=== PATIENT | female | born 1960 | race Caucasian/White ===

== ENCOUNTER 2017-01-05 07:30 | Day surgery (SDC) | payer OTHER ==
--- NOTE | 2017-01-02 13:30 | HISTORY AND PHYSICAL E ---
History and Physical NAME: ZBIGNIEW TRUJILLO : 1960 AGE: 56Y ADMITTED: 01/05/2017 ROOM: REFERRING: [facility], Internal Medicine. HISTORY OF PRESENT ILLNESS: A 55-year-old female presents with abdominal pain. Admitted regarding colonoscopy. SOCIAL HISTORY: . Does not smoke. Drinks rarely. PAST SURGICAL HISTORY: 1. Cholecystectomy. 2. Back surgery. 3. Hysterectomy. 4. Tonsillectomy. 5. Appendectomy. 6. Patient did have ERCP at [facility]. 7. Colonoscopy x3, 2009 diverticulosis. 8. . REVIEW OF SYSTEMS: CARDIAC: Hypertension. ENDOCRINE: Hypothyroid. Diabetes. GASTROINTESTINAL: Abdominal pain. Diverticulosis. Fatty liver. MUSCULOSKELETAL: Back fusion. FAMILY HISTORY: Father had cardiac and kidney disease. Mom is alive. PHYSICAL EXAMINATION: VITAL SIGNS: Blood pressure is 130/70, pulse 80, respirations 20, temp is 98. HEAD, EYES, EARS, NOSE, THROAT: Normal. NECK: Supple. LUNGS: Clear. ABDOMEN: Soft. NEUROLOGIC: Negative. MEDICATIONS: 1. Crestor. 2. Nexium. 3. Synthroid. 4. Tramadol. 5. Voltaren gel. IMAGING: Patient did have abdominal CT. It shows liver is normal. The patient does have possible focal fatty scarring. Splenic mesenteric veins are patent. The patient did have impression, nodular consolidation in the peribronchial area. The patient did have nonobstructing renal calculi. She has colonic diverticulosis without diverticulitis. She did have enlarged mesenteric lymph nodes. The patient may have sequela from previous inflammation. Recommend correlate colon screening. Enlarged mesenteric lymph node adjacent to the hepatic flexure in transverse colon which may represent sequela of infection or inflammation. CONCLUSION: 1. Colon screening. 2. Abnormal CT. 3. Diverticulosis. 4. Diabetes. PLAN: Colon exam. DICTATING PHYSICIAN: JAILENE PEGUERO M.D. [id number] PHY#: [id number] ID: [id number] JOB#: [id number] ACCT: [id number] cc:[facility] JAILENE PEGUERO M.D. >
[2017-01-05] MEDS ORDERED: NALOXONE HCL INJ/PF 0.4 MG/1 ML SDV ONE (07:44)
[2017-01-05] MEDS ORDERED: ONDANSETRON HCL INJ/PF 4 MG/2 ML SDV ONE (07:44)
[2017-01-05] MEDS ORDERED: LIDOCAINE 2% JELLY 30 ML TUBE ONE (07:44)
[2017-01-05] MEDS ORDERED: GLYCOPYRROLATE INJ 0.4 MG/2 ML VIAL ONE (07:44)
[2017-01-05] MEDS ORDERED: FLUMAZENIL INJ 0.5 MG/5 ML VIAL IV ONE (07:45)
[2017-01-05] MEDS ORDERED: EPINEPHRINE INJ 1 MG/10 ML DISP.SYRIN ONE (07:45)
[2017-01-05] MEDS ORDERED: GLUCAGON,HUMAN RECOMB 1 MG INJ ONE (07:46)
[2017-01-05] MEDS: MIDAZOLAM 2 MG/2 ML INJ ONE ×3 (08:03→08:11)
[2017-01-05] MEDS: FENTANYL CITRATE INJ/PF 100 MCG/2 ML AMPUL ONE ×2 (08:05→08:13)
[2017-01-05 09:21] VITALS: BP 115/69
[2017-01-05 09:25] LABS: ABSOLUTE BASOPHILS # (AUTO) 0.1 10^3/uL (0.0-0.2); ABSOLUTE EOSINOPHILS # (AUTO) 1.1 10^3/uL (0.0-0.6); ABSOLUTE LYMPHOCYTES (AUTO) 1.6 10^3/uL (0.5-4.7); ABSOLUTE MONOCYTES (AUTO) 0.4 10^3/uL (0.1-1.4); ABSOLUTE NEUT (AUTO) 2.5 10^3/uL (1.7-8.2); BASOPHILS % (AUTO) 1.2 % (0-2); EOSINOPHILS % (AUTO) 18.8 % (0-6); HEMATOCRIT 34.5 % (36.0-47.0); HEMOGLOBIN 11.2 g/dL (12.0-15.5); HGB HCT DIFFERENCE -0.9; MEAN CORPUSCULAR HGB CONC 32.5 g/dL (32.0-36.0); MEAN CORPUSCULAR VOLUME 77 fl (80-97); MONOCYTES % (AUTO) 6.6 % (3-13); RED BLOOD COUNT 4.49 10^6/uL (3.72-5.28); RED CELL DISTRIBUTION WIDTH 17.1 % (11.5-14.0); SEGMENTED NEUTROPHILS % (AUTO) 44.4 % (42-78); WHITE BLOOD COUNT 5.7 10^3/uL (4.0-10.5)
--- NOTE | 2017-01-05 09:50 | DISCHARGE SUMMARY E ---
Discharge Summary NAME: ZBIGNIEW TRUJILLO : 1960 AGE: 56Y ADMITTED: 01/05/2017 DISCHARGED: 01/05/2017 FINAL DIAGNOSIS: Abnormal CT. No evidence of malignancy. Patient did have multiple colonoscopies in the past showing diverticulosis, , hysterectomy, and cholecystectomy. Colon shows no malignancy. No definite polyps. DISCHARGE PLAN: 1. Soft diabetic diet. 2. Consider upper endoscopy. 3. Awaiting lab studies. 4. Resume all medications. 5. Avoid driving today. 6. Continue lisinopril, colchicine, Crestor, and Synthroid. 7. Followup office visit in the next few days. DICTATING PHYSICIAN: JAILENE PEGUERO M.D. [id number] PHY#: [id number] ID: [id number] JOB#: [id number] ACCT: [id number] cc:[facility] JAILENE PEGUERO M.D. >
--- NOTE | 2017-01-05 09:51 | OPERATIVE REPORT E ---
Operative Report NAME: ZBIGNIEW TRUJILLO : 1960 AGE: 56Y DATE OF SURGERY: 01/05/2017 ROOM: PREOPERATIVE DIAGNOSIS: ABNORMAL CT; QUESTION DIVERTICULITIS. QUESTION COLORECTAL LESIONS. POSTOPERATIVE DIAGNOSES: 1. EXTERNAL HEMORRHOIDS. 2. QUESTION 2 MM ANAL POLYP VERSUS SKIN TAG VERSUS HEMORRHOID. OPERATION: Colonoscopy. SURGEON: JAILENE PEGUERO M.D. TISSUE REMOVED OR ALTERED: None. FINDINGS: Mild external hemorrhoids. Question anal polyp versus external hemorrhoid. PROCEDURE DESCRIPTION: RECTAL EXAM: External hemorrhoids - question anal verge skin tag. Question size anal polyp. SIGMOID DESCENDING COLON: Normal. TRANSVERSE COLON: Normal. ASCENDING: Normal. CECUM: Normal. Scope withdrawn - cecum all the way to the rectum. CONCLUSION: 1. EXTERNAL HEMORRHOIDS. 2. ANAL POLYP. PLAN: 1. Soft diet. 2. Lab studies. 3. Consideration: Followup colonoscopy after 5 years. DICTATING PHYSICIAN: JAILENE PEGUERO M.D. [id number] PHY#: [id number] ID: [id number] JOB#: [id number] ACCT: [id number] cc:JAILENE PEGUERO M.D. >
[2017-01-05 10:01] LABS: ALANINE AMINOTRANSFERASE 126 U/L (9-52); ALBUMIN 3.8 g/dL (3.5-5.0); ALKALINE PHOSPHATASE 83 U/L (38-126); ANION GAP 12 (5-19); ASPARTATE AMINO TRANSFERASE 174 U/L (14-36); BILIRUBIN,DIRECT 0.3 mg/dL (0.0-0.4); BILIRUBIN,TOTAL 0.5 mg/dL (0.2-1.3); BLOOD UREA NITROGEN 12 mg/dL (7-20); CALCIUM 9.9 mg/dL (8.4-10.2); CARBON DIOXIDE 25 mmol/L (22-30); CHLORIDE 103 mmol/L (98-107); CREATININE RESULT 0.74 mg/dL (0.52-1.25); GLUCOSE 317 mg/dL (75-110); POTASSIUM 3.8 mmol/L (3.6-5.0); SODIUM 140.2 mmol/L (137-145); TOTAL PROTEIN 6.3 g/dL (6.3-8.2)
[2017-01-05 10:31] LABS: CARCINOEMBRYONIC ANTIGEN 4.2 ng/mL (<3.0)
== END 2017-01-05 09:40 | disposition home or self-care (01) ==
LOC: END 07:30
PROVIDERS: ATTEND Specialist
PROC: 0DJD8ZZ Inspection of Lower Intestinal Tract, Via Natural or Artificial Opening Endoscopic (ICD-10-PCS; principal; 2017-01-05 08:00)
DX: K62.0 Anal polyp (principal); K64.4 Residual hemorrhoidal skin tags; R10.9 Unspecified abdominal pain; I10 Essential (primary) hypertension; E03.9 Hypothyroidism, unspecified; E11.9 Type 2 diabetes mellitus without complications; K76.0 Fatty (change of) liver, not elsewhere classified
CPT/HCPCS: 45378; 36415; 86301; 82962; 86304; 82378; 85025; 80053; J2250; J3010; J1610; J2405; J0171; J2310; J3490

== ENCOUNTER 2017-01-23 09:27 | Day surgery (SDC) | payer OTHER ==
--- NOTE | 2017-01-18 14:41 | HISTORY AND PHYSICAL E ---
History and Physical NAME: ZBIGNIEW TRUJILLO : 1960 AGE: 56Y ADMITTED: 01/23/2017 ROOM: REFERRING PROVIDER: [facility]. CHIEF COMPLAINT/HISTORY: Patient presented complaining of history of nausea. The patient is sick to her stomach, loose BM. She presented for upper endoscopy. Abdominal pain. History of kidney stones. Complaining of abdominal pain, right upper quadrant. She does have a history of reflux. PAST SURGICAL HISTORY: 1. She did have hysterectomy. 2. Cholecystectomy. 3. She did have ERCP at [facility]. 4. Colonoscopy. 5. Appendectomy. 6. Tonsillectomy. 7. C section. MEDICATIONS: The patient takes: 1. Tramadol. 2. Lisinopril. 3. Crestor. SOCIAL HISTORY: She does not smoke. She drinks rarely. FAMILY HISTORY: Father of heart disease. Mom is alive, gallbladder disease. REVIEW OF SYSTEMS: CARDIAC: Hypertension, high cholesterol. ENDOCRINE: Diabetes, hypothyroid, hypertriglyceridemia. GASTROINTESTINAL: Abdominal pain, right upper quadrant. Fatty liver. PHYSICAL EXAMINATION: VITAL SIGNS: Blood pressure is 130/70, pulse 80, respirations 20, temp is 98. Weight 208. HEAD, EYES, EARS, NOSE, THROAT: Normal. NECK: Supple. CARDIOVASCULAR: Normal. LUNGS: Clear. ABDOMEN: Soft. NEUROLOGIC: Exam negative. CONCLUSION: 1. Reflux. 2. Abdominal pain. PLAN: Upper endoscopy. Admit 01/23. DICTATING PHYSICIAN: JAILENE PEGUERO M.D. [id number] [id number] PHY#: [id number] ID: [id number] JOB#: [id number] ACCT: [id number] cc:[facility] JAILENE PEGUERO M.D. >
[~2017-01-23 09:27] MED LIST: EPINEPHRINE INJ 1 MG/10 ML DISP.SYRIN ONE; FENTANYL CITRATE INJ/PF 100 MCG/2 ML AMPUL ONE; FLUMAZENIL INJ 0.5 MG/5 ML VIAL IV ONE; GLYCOPYRROLATE INJ 0.4 MG/2 ML VIAL ONE; NALOXONE HCL INJ/PF 0.4 MG/1 ML SDV ONE; ONDANSETRON HCL INJ/PF 4 MG/2 ML SDV ONE
[2017-01-23] MEDS: MIDAZOLAM 2 MG/2 ML INJ ONE ×3 (10:27→10:37)
[2017-01-23 11:53] VITALS: BP 137/77
[2017-01-23 12:11] LABS: HEMATOCRIT 35.6 % (36.0-47.0); HEMOGLOBIN 11.2 g/dL (12.0-15.5); MEAN CORPUSCULAR HEMOGLOBIN 24.7 pg (27.0-33.4); MEAN CORPUSCULAR HGB CONC 31.5 g/dL (32.0-36.0); MEAN CORPUSCULAR VOLUME 79 fl (80-97); RED BLOOD COUNT 4.54 10^6/uL (3.72-5.28); RED CELL DISTRIBUTION WIDTH 17.4 % (11.5-14.0); WHITE BLOOD COUNT 11.3 10^3/uL (4.0-10.5)
[2017-01-23 12:31] LABS: ALANINE AMINOTRANSFERASE 64 U/L (9-52); ALBUMIN 3.8 g/dL (3.5-5.0); ALKALINE PHOSPHATASE 92 U/L (38-126); AMYLASE 74 U/L (30-110); ANION GAP 13 (5-19); ASPARTATE AMINO TRANSFERASE 57 U/L (14-36); BILIRUBIN,DIRECT 0.3 mg/dL (0.0-0.4); BILIRUBIN,TOTAL 0.3 mg/dL (0.2-1.3); BLOOD UREA NITROGEN 18 mg/dL (7-20); C-REACTIVE PROTEIN 10.6 mg/L (<10.0); CALCIUM 10.3 mg/dL (8.4-10.2); CARBON DIOXIDE 24 mmol/L (22-30); CHLORIDE 103 mmol/L (98-107); CREATININE RESULT 0.87 mg/dL (0.52-1.25); GLUCOSE 141 mg/dL (75-110); LIPASE 173.9 U/L (23-300); POTASSIUM 4.4 mmol/L (3.6-5.0); SODIUM 140.1 mmol/L (137-145); TOTAL PROTEIN 6.3 g/dL (6.3-8.2)
--- NOTE | 2017-01-23 12:39 | DISCHARGE SUMMARY E ---
Discharge Summary NAME: ZBIGNIEW TRUJILLO : 1960 AGE: 56Y ADMITTED: 01/23/2017 DISCHARGED: 01/23/2017 01/23/2017 HISTORY: The patient is 56 and presented with abdominal pain. She has been to the ER at [facility] and was discharged over the weekend. She is doing much better. She continues to have vague nonspecific abdominal pain. Upper endoscopy today shows no evidence of ulcers and no evidence of malignancy. She did have some retained fluids consistent with early gastroparesis. She is diabetic. MEDICATIONS: 1. Bentyl. 2. Crestor. 3. Janumet. 4. Lisinopril. 5. Melatonin. 6. [place]-3. 7. Synthroid. 8. Zantac. 9. Zofran. DISCHARGE PLAN: 1. Full liquids. Advance to soft, low residue. 2. Lab studies. 3. Continue Nexium. 4. Awaiting lab results. 5. Continue present management. 6. Follow-up office visit in the next few days. PAST MEDICAL HISTORY: She does have fatty liver, hypothyroid, reflux, hysterectomy. DICTATING PHYSICIAN: JAILENE PEGUERO M.D. [id number] [id number] PHY#: [id number] ID: [id number] JOB#: [id number] ACCT: [id number] cc:[facility] JAILENE MONTEZ M.D. >
--- NOTE | 2017-01-23 12:40 | OPERATIVE REPORT E ---
Operative Report NAME: ZBIGNIEW TRUJILLO : 1960 AGE: 56Y DATE OF SURGERY: ROOM: [facility] - [facility]. PREOPERATIVE DIAGNOSES: A 56-year-old female with: 1. Abdominal pain. 2. Patient does have diabetes. 3. Allergic to gentamicin. POSTOPERATIVE DIAGNOSES: 1. Gastritis, mild. 2. Esophagitis, mild. 3. Duodenitis, mild. OPERATION: 1. Esophagoscopy. 2. Gastroscopy. 3. Duodenoscopy. FINDINGS: Patient did have some fluid retained in the stomach consistent with mild gastroparesis. No ulcers, no obstruction. Mild gastritis, prominent gastric folds. Mild duodenitis. Mild esophagitis. SURGEON: JAILENE PEGUERO M.D. ANESTHESIA: Patient was given versed 5, fentanyl 100. PROCEDURE: Baby scope passed under guided vision with no difficulties. ESOPHAGOSCOPY: Junction at 55. Mild esophagitis. GASTROSCOPY: Mild gastritis. No ulcers. DUODENOSCOPY: Mild duodenitis. CONCLUSION: 1. Esophagitis, gastritis, duodenitis. 2. No ulcers, no bleeding. 3. The patient tolerated the procedure well and discharged to her room in stable condition. 4. A 56-year-old female with abdominal pain has been to the Emergency Room over the weekend. Today she is doing much better. Upper scope shows no evidence of ulcers noted, no evidence of malignancy. She did have mild gastritis and mild esophagitis. Question early gastroparesis with some fluids, yellow fluids, retained in the stomach, about 20 mL, consistent with possibility of mild gastroparesis. There were no ulcers. No malignancy. 5. Rule out pancreatitis. Again, patient has been to the Emergency Room over the weekend, and she is doing much better. DISCHARGE PLAN: 1. Discharged on full liquid today. Soft low-fat. 2. Awaiting lab results. 3. Patient to see us in the office in the next few days. DICTATING PHYSICIAN: JAILENE PEGUERO M.D. [id number] PHY#: [id number] ID: [id number] JOB#: [id number] ACCT: [id number] cc:[facility] JAILENE PEGUERO M.D. >
[2017-01-23 13:00] LABS: BASOPHILS % (MANUAL) 0 % (0-2); EOSINOPHILS % (MANUAL) 24 % (0-6); LYMPHOCYTES % (MANUAL) 24 % (13-45); TOTAL CELLS COUNTED 100
[2017-01-23 13:05] LABS: ANISOCYTOSIS 2+; OVALOCYTES 2+; POIKILOCYTOSIS 2+; POLYCHROMASIA SLIGHT; ROULEAUX 1+
== END 2017-01-23 12:00 | disposition home or self-care (01) ==
LOC: END 09:27
PROVIDERS: ATTEND Specialist
PROC: 0DB68ZX Excision of Stomach, Via Natural or Artificial Opening Endoscopic, Diagnostic (ICD-10-PCS; principal; 2017-01-23 10:00)
DX: K31.9 Disease of stomach and duodenum, unspecified (principal); K20.9 Esophagitis, unspecified; K29.80 Duodenitis without bleeding; K76.0 Fatty (change of) liver, not elsewhere classified; E11.9 Type 2 diabetes mellitus without complications; I10 Essential (primary) hypertension; E78.00 Pure hypercholesterolemia, unspecified; E03.9 Hypothyroidism, unspecified; E78.1 Pure hyperglyceridemia; Z88.1 Allergy status to other antibiotic agents; Z79.891 Long term (current) use of opiate analgesic; Z79.899 Other long term (current) drug therapy
CPT/HCPCS: 43239; 36415; 82962; 82150; 83690; 85025; 86140; 80053; 88342 ×2; 88305 ×2; J2250; J3010; J2405; J0171; J2310; J3490

== ENCOUNTER 2020-03-29 10:57 | Day surgery (SDC) | payer OTHER ==
[2020-03-29 12:03] LABS: HEMATOCRIT 34.9 % (36.0-47.0); HEMOGLOBIN 11.6 g/dL (12.0-15.5); MEAN CORPUSCULAR HEMOGLOBIN 25.4 pg (27.0-33.4); MEAN CORPUSCULAR HGB CONC 33.3 g/dL (32.0-36.0); MEAN CORPUSCULAR VOLUME 76 fl (80-97); PLATELET COUNT 232 10^3/uL (150-450); RED BLOOD COUNT 4.57 10^6/uL (3.72-5.28); RED CELL DISTRIBUTION WIDTH 18.3 % (11.5-14.0); WHITE BLOOD COUNT 10.3 10^3/uL (4.0-10.5)
[2020-03-29 12:05] LABS: INTERNATIONAL RATION (INR) 1.09; PROTHROMBIN TIME 14.1 SEC (11.4-15.4)
[2020-03-29 12:14] LABS: BLOOD UREA NITROGEN 14 mg/dL (7-20)
[2020-03-29] MEDS ORDERED: OXYCODONE-ACETAMINOPHEN 5-325 MG TABLET PO ONE (14:45)
--- NOTE | 2020-03-29 14:50 | RADIOLOGY REPORT (SQ) ---
EXAM DESCRIPTION: CT BIOPSY LIVER IMAGES COMPLETED DATE/TIME: 03/29/2020 2:01 pm REASON FOR STUDY: SPECIFIED DISEASES IF LIVER K76.89 OTHER SPECIFIED DISEASES OF LIVER COMPARISON: Outside CT TECHNIQUE: After obtaining informed consent and explaining the risks and benefits of conscious sedat ion,the patient agreed to the procedure. The patient was brought to the CT suite and was placed supin e on the CT gurney. The patient was prepped and draped in the usual sterile fashion. Axial images we re obtained for targeting of theright hepatic lobe nodule. An appropriate access site was selected. I V conscious sedation was administered and physician direction by the registered nurse using 1.0 eugene grams of Versed and 100 micrograms of fentanyl. Physiologic monitoring was provided before, during, a nd after sedation. The total sedation time was 30 minutes. Documentation face to face time, the performing proceduralist, spent monitoring the patient: [address] of the liver was performed to localize an approach for the targeted liver biopsy. A percutaneous site was marked. Time out was performed. After skin prep and local lidocaine for skin and deep tissue anesthesia, a coaxial biopsy needle sys tem was used to obtain several cores of tissue from the mass in the right lobe of the liver. These w ere submitted to the lab in formalin. No immediate postprocedure complications. Total of 3.[address] fluoro was used. 21 CT Fluoroscopic images were obtained and saved to PACS. All CT scanners at this facility use dose modulation, iterative reconstruction, and/or weight based d osing when appropriate to reduce radiation dose to as low as reasonably achievable (ALARA). [facility]: Dose Right [facility]: CareDose [facility]: Dose Right [facility]: Teradose 4D [facility]: Smart Technologies RADIATION DOSE: CT Rad equipment meets quality standard of care and radiation dose reduction techniq ues were employed. CTDIvol: 4.0 - 20.4 mGy. DLP: 909 mGy-cm. mGy. LIMITATIONS: None. FINDINGS: CT guided liver biopsy as detailed above. IMPRESSION: Successful CT-guided biopsy the hepatic mass in the right lobe of the liver. COMMENT: Patient medication list reviewed:Yes- Quality ID# [id number]:Eligible professional attests to docu menting in the medical record they obtained, updated, or reviewed the patient's current medications.. Quality ID 145: Final reports for procedures using fluoroscopy that document radiation exposure tash karlie, or exposure time and number of fluorographic images (if radiation exposure indices are not avail able) TECHNICAL DOCUMENTATION: JOB ID: [id number] Quality ID # [id number]: Final reports with documentation of one or more dose reduction techniques (e.g., A utomated exposure control, adjustment of the mA and/or kV according to patient size, use of iterative reconstruction technique) 2010 [employer]- All Rights Reserved Reading location - IP/workstation name: [email or web address]
--- NOTE | 2020-03-29 14:51 | RADIOLOGY REPORT (SQ) ---
EXAM DESCRIPTION: CT NEEDLE PLACEMENT COMPLETE DATE/TIME: 03/29/2020 2:01 pm REASON FOR STUDY: SPECIFIED DISEASES IF LIVER K76.89 OTHER SPECIFIED DISEASES OF LIVER FINDINGS: Please see combined report for performance of procedure and radiologic supervision and int erpretation. IMPRESSION: Please see combined report for performance of procedure and radiologic supervision and i nterpretation. Reading location - IP/workstation name: [email or web address]
[2020-03-29 16:12] VITALS: BP 151/72
== END 2020-03-29 16:05 | disposition home or self-care (01) ==
LOC: RAD 10:57
PROVIDERS: ATTEND Internal Medicine Gastroenterology
DX: C78.7 Secondary malignant neoplasm of liver and intrahepatic bile duct (principal); I10 Essential (primary) hypertension; E78.00 Pure hypercholesterolemia, unspecified; E03.9 Hypothyroidism, unspecified; E11.9 Type 2 diabetes mellitus without complications; K21.9 Gastro-esophageal reflux disease without esophagitis; M10.9 Gout, unspecified; Z79.84 Long term (current) use of oral hypoglycemic drugs; Z79.899 Other long term (current) drug therapy
CPT/HCPCS: 36415; 47000; 77012; 82565; 82962; 84520; 85027; 85610; 88305; 88341; 88342

== ENCOUNTER → 2020-03-30 | Outpatient (CLI) | payer OTHER ==
[~2020-03-30] MED LIST changes: -EPINEPHRINE INJ 1 MG/10 ML DISP.SYRIN ONE; -FLUMAZENIL INJ 0.5 MG/5 ML VIAL IV ONE; -GLYCOPYRROLATE INJ 0.4 MG/2 ML VIAL ONE; +MIDAZOLAM 2 MG/2 ML INJ ONE; -NALOXONE HCL INJ/PF 0.4 MG/1 ML SDV ONE; +OXYCODONE-ACETAMINOPHEN 5-325 MG TABLET ONE
--- NOTE | 2020-03-31 08:32 | RADIOLOGY REPORT (SQ) ---
EXAM DESCRIPTION: PET CT SKULL/THIGH IMAGES COMPLETED DATE/TIME: 03/30/2020 2:06 pm REASON FOR STUDY: LIVER LESION COMPARISON: Outside CT dated 03/11/2020 RADIONUCLIDE AND DOSE: 10.72 mCi F18 FDG The route of agent administration: Intravenous FASTING BLOOD SUGAR: 168 mg/dl CONTRAST TYPE AND DOSE: No CT contrast given. TECHNIQUE: Blood glucose level was verified. Above dose of FDG was injected intravenously. 2-D seg mented attenuation correction images were obtained from the base of the skull to the midthighs. Nonc ontrast CT images were obtained for attenuation correction and fusion with emission images. CT image s were performed without oral or intravenous contrast and are not sensitive for parenchymal lesions. A series of overlapping emission PET images were obtained. [facility] by the radiologist. Images stored on PACS. LIMITATIONS: None. FINDINGS: HEAD AND NECK: No areas of abnormal metabolic activity in the soft tissues of the head and neck. CHEST: No areas of abnormal metabolic activity in the chest. ABDOMEN AND PELVIS: Abnormal uptake in the liver consistent with known metastasis. There is abnormal uptake in the pancreas. SUV at both sites is greater than 6 consistent with neoplasm. There is upt melly in the periaortic adenopathy. SUV ranges between 3.7 and 4.7 consistent with metastatic disease. PROXIMAL LOWER EXTREMITIES: No areas of abnormal metabolic activity in the soft tissues of the lower extremities. BONES: No abnormal metabolic activity in the visualized skeleton. ADDITIONAL CT FINDINGS: There are small mediastinal lymph nodes. No abnormal metabolic activity. Catalina ng windows demonstrate scattered areas of atelectasis. There are small ill-defined pulmonary nodules but again no abnormal metabolic activity in the chest. OTHER: No other significant findings. IMPRESSION: Abnormal uptake in the liver and pancreatic head corresponding to the masses demonstrate d on CT. There is abnormal uptake in the PA aortic adenopathy as well. SUV ranges between 3.7 and 4 .7. Bilateral areas of atelectasis in the lung syed. Small ill-defined pulmonary nodules right gr eater than left. These show no abnormal metabolic activity but is most likely secondary to small siz e. Metastatic disease cannot be excluded. TECHNICAL DOCUMENTATION: JOB ID: [id number] 2010 [employer]- All Rights Reserved Reading location - IP/workstation name: [email or web address]
== END ==
LOC: RAD 10:14
PROVIDERS: ATTEND Physician Assistant
DX: C78.7 Secondary malignant neoplasm of liver and intrahepatic bile duct (principal); R91.8 Other nonspecific abnormal finding of lung field
CPT/HCPCS: 78815; A9552; J2250; J3010; J2405

== ENCOUNTER 2020-04-23 06:44 | Day surgery (SDC) | payer OTHER ==
[2020-04-21 10:10] LABS: ABSOLUTE BASOPHILS # (AUTO) 0.1 10^3/uL (0.0-0.2); ABSOLUTE EOSINOPHILS # (AUTO) 0.1 10^3/uL (0.0-0.6); ABSOLUTE LYMPHOCYTES (AUTO) 1.5 10^3/uL (0.5-4.7); ABSOLUTE NEUT (AUTO) 9.3 10^3/uL (1.7-8.2); BASOPHILS % (AUTO) 0.5 % (0-2); EOSINOPHILS % (AUTO) 1.1 % (0-6); HEMATOCRIT 33.1 % (36.0-47.0); HEMOGLOBIN 10.6 g/dL (12.0-15.5); LYMPHOCYTES % (AUTO) 12.3 % (13-45); MEAN CORPUSCULAR HEMOGLOBIN 23.8 pg (27.0-33.4); MEAN CORPUSCULAR HGB CONC 31.9 g/dL (32.0-36.0); MEAN CORPUSCULAR VOLUME 75 fl (80-97); MONOCYTES % (AUTO) 8.7 % (3-13); PLATELET COUNT 280 10^3/uL (150-450); RED BLOOD COUNT 4.44 10^6/uL (3.72-5.28); SEGMENTED NEUTROPHILS % (AUTO) 77.4 % (42-78); TOTAL CELLS COUNTED % (AUTO) 100 %
[2020-04-21 10:36] LABS: ANION GAP 13 (5-19); BLOOD UREA NITROGEN 18 mg/dL (7-20); CALCIUM 9.6 mg/dL (8.4-10.2); CARBON DIOXIDE 24 mmol/L (22-30); CHLORIDE 97 mmol/L (98-107); GLUCOSE 156 mg/dL (75-110); POTASSIUM 4.3 mmol/L (3.6-5.0)
--- NOTE | 2020-04-21 11:47 | RADIOLOGY REPORT (SQ) ---
EXAM DESCRIPTION: CHEST SINGLE VIEW IMAGES COMPLETED DATE/TIME: 04/21/2020 10:09 am REASON FOR STUDY: PRE-OP COMPARISON: PA and lateral views of the chest from 03/18/2010 and PET from 03/30/2020. EXAM PARAMETERS: NUMBER OF VIEWS: One view. TECHNIQUE: An AP view of the chest was obtained. RADIATION DOSE: NA. LIMITATIONS: None. FINDINGS: LUNGS AND PLEURA: Reticular opacities in the inferior aspect of the hemithoraces that coul d represent atelectasis. There is no acute consolidation, sizeable pleural effusion or pneumothorax. MEDIASTINUM AND HILAR STRUCTURES: No mediastinal or hilar contour abnormality. HEART AND VASCULAR STRUCTURES: The cardiac silhouette and pulmonary vasculature are within normal solares its. BONES: No acute findings. HARDWARE: None in the chest. OTHER: No other finding. IMPRESSION: Bibasilar reticular opacities that could represent atelectasis or scars. There is no ac peggy consolidation, pleural effusion or pneumothorax. TECHNICAL DOCUMENTATION: JOB ID: [id number] 2010 [employer]- All Rights Reserved Reading location - IP/workstation name: [email or web address]
--- NOTE | 2020-04-21 14:58 | EKG REPORT ---
SEVERITY:- OTHERWISE NORMAL ECG - SINUS RHYTHM BORDERLINE LEFT AXIS DEVIATION : Confirmed by: Willem Redd MD 21-Apr-2020 14:57:58
[~2020-04-23 06:44] MED LIST changes: +CEFAZOLIN 2 GM/D5W RTU 2 GM/50 ML RTUPB IV ONE; +CEFAZOLIN 2 GM/D5W RTU 2 GM/50 ML RTUPB IV PRN; +IBUPROFEN 800 MG in NORMAL SALINE 250 ML IV PRN; +LACTATED RINGERS 1000 ML IV PRN; +LIDOCAINE 0.5% INJ-PF (5 MG/ML) 50 ML SDV SUBCUT PRN; -OXYCODONE-ACETAMINOPHEN 5-325 MG TABLET ONE; +PROPOFOL INJ 200 MG/20 ML VIAL IV ONE
[2020-04-23 08:01] LABS: INTERNATIONAL RATION (INR) 1.21; PROTHROMBIN TIME 15.5 SEC (11.4-15.4)
[2020-04-23] MEDS ORDERED: BUPIVACAINE HCL 0.25 % INJ/PF (2.5 MG/1 ML) 30 ML VIAL ONE (09:46)
[2020-04-23] MEDS ORDERED: LIDOCAINE 1% INJ-PF (10 MG/ML) 30 ML SDV ONE (09:46)
[2020-04-23] MEDS ORDERED: ONDANSETRON HCL INJ/PF 4 MG/2 ML SDV IV PRN (10:36)
[2020-04-23] MEDS ORDERED: OXYCODONE-ACETAMINOPHEN 5-325 MG TABLET PO PRN ×2 (10:36)
[2020-04-23] MEDS ORDERED: DIPHENHYDRAMINE HCL 50 MG/ML VIAL IV PRN (10:36)
[2020-04-23] MEDS ORDERED: FENTANYL CITRATE INJ/PF 100 MCG/2 ML AMPUL IV PRN ×3 (10:36)
[2020-04-23] MEDS ORDERED: MEPERIDINE HCL/PF INJ 25 MG/1 ML DISP.SYRIN IV PRN (10:36)
[2020-04-23] MEDS ORDERED: PROMETHAZINE HCL INJ 25 MG/1 ML VIAL IV PRN ×2 (10:36)
[2020-04-23] MEDS ORDERED: MORPHINE SULFATE 10 MG/ML INJ IV PRN (10:36)
--- NOTE | 2020-04-23 11:28 | Discharge Summary ---
Discharge Summary (SDC) - Discharge Final Diagnosis: Pancreatic cancer Date of Surgery: 04/23/20 Discharge Date: 04/23/20 Condition: Stable Treatment or Instructions: Discharge home. Diet as tolerated. Activity: Nonstrenuous. Follow-up with [place] [facility] as needed. Resume home medications as previously prescribed. Okay to shower starting Sunday. No swimming pools or hot tubs x2 weeks. Prescriptions: Hydrocodone/Acetaminophen [[place] 5-325 mg Tablet] 1 tab PO Q6HP PRN #20 tablet PRN Reason: For Pain Referrals: VALERI BENSON PA [Primary Care Provider] - Discharge Diet: As Tolerated Respiratory Treatments at Home: Deep Breathing/Coughing, Incentive Spirometer Discharge Activity: Balance Activity w/Rest Home Care Assistance: None Needed Report the Following to Your Physician Immediately: Shortness of Breath, Nausea, Vomiting, Increase in Pain, Redness, Swelling, Warmth, Increased Soreness
[2020-04-23] MEDS ORDERED: HYDROCODONE/ACETAMINOPHEN 10-325 MG TABLET PO PRN (11:29)
--- NOTE | 2020-04-23 11:39 | Operative Report ---
Nonrecallable Operative Report DATE OF SURGERY: 04/23/20 PREOPERATIVE DIAGNOSIS: 1. Pancreatic cancer. #2 phlebosclerosis POSTOPERATIVE DIAGNOSIS: Same as above OPERATION: 1. Ultrasound-guided central venous puncture. 2. Left internal jugular vein central line placement (Mediport). SURGEON: DEONNA LOMAS ANESTHESIA: LMAC TISSUE REMOVED OR ALTERED: None COMPLICATIONS: None apparent ESTIMATED BLOOD LOSS: Minimal PROCEDURE: Drain/implants: Mediport in the left internal jugular vein. Procedure in detail: After informed consent was obtained, the patient was brought to the operating room and laid in the Trendelenburg position. The area of the neck and chest were prepped and draped in a normal sterile fashion. An ultrasound was used to identify the left internal jugular vein. It was compressible with normal flow. The supplied access needle was used to cannulate the left internal jugular vein under direct ultrasound guidance. Dark venous, nonpulsatile blood was returned in the syringe. The wire was then inserted into the vein easily. The wire was confirmed the within the lumen of the vein using both fluoroscopy as well as ultrasonography. Picture documentation was printed and placed on the chart. A separate incision was then created on the left chest wall to accommodate the Mediport hub. The catheter was then tunneled from the Mediport hub site to the needle insertion site. The dilator and breakaway sheath were then inserted over the wire. The wire and dilator were removed, leaving the sheath within the SVC. This was all done under fluoroscopic guidance. Next the catheter was inserted into the sheath. The sheath was cracked and pulled away, leaving the catheter within the SVC. The catheter was pulled back to an appropriate level, trimmed, and the Mediport hub was attached. The hub was buried in the pocket that was previously created. The hub was sutured to the chest wall using 3-0 Vicryl suture. The subcutaneous tissues were closed using 3-0 Vicryl suture in running subcuticular fashion. The overlying skin was closed using 4-0 Vicryl Rapide suture in subcuticular fashion. The hub was then accessed. It aspirated and flushed easily. Heparinized saline was used to "block" the catheter. Dressings were then placed, and the procedure was concluded. All sponge, instrument, and needle counts were correct x2. Condition: Stable.
--- NOTE | 2020-04-23 12:11 | RADIOLOGY REPORT (SQ) ---
EXAM DESCRIPTION: CHEST SINGLE VIEW IMAGES COMPLETED DATE/TIME: 04/23/2020 12:02 pm REASON FOR STUDY: mediport placement COMPARISON: 04/21/2020 EXAM PARAMETERS: NUMBER OF VIEWS: One view. TECHNIQUE: Single frontal radiographic view of the chest acquired. RADIATION DOSE: NA LIMITATIONS: None. FINDINGS: LUNGS AND PLEURA: Areas of linear atelectasis remain in the left base and right midlung fi eld. Interstitial markings are diffusely prominent. No focal consolidation. Left-sided Infuse-A-Po rt is in place. Catheter tip lies in a horizontal position most likely in the innominate vein. No p neumothorax. MEDIASTINUM AND HILAR STRUCTURES: No masses. Contour normal. HEART AND VASCULAR STRUCTURES: Heart normal in size. Normal vasculature. BONES: No acute findings. HARDWARE: None in the chest. OTHER: No other significant finding. IMPRESSION: Qfvrwh-S-Prwp is been placed as described. Scattered areas of linear atelectasis. No p neumothorax. TECHNICAL DOCUMENTATION: JOB ID: [id number] 2010 [employer]- All Rights Reserved Reading location - IP/workstation name: [email or web address]
--- NOTE | 2020-04-23 12:36 | RADIOLOGY REPORT (SQ) ---
EXAM DESCRIPTION: FLUORO/CV PLACEMENT IMAGES COMPLETED DATE/TIME: 04/23/2020 12:25 pm REASON FOR STUDY: PORTACATH PLCMT LEFT SIDE ASSISTED WITH FLUORO IN OR C25.9 MALIGNANT NEOPLASM OF PANCREAS, UNSPECIFIED COMPARISON: None. FLUOROSCOPY TIME: 4.1 minutes Spot images saved to PACS. TECHNIQUE: Intra-operative images acquired during surgical procedure to evaluate progress. NUMBER OF IMAGES: 2 LIMITATIONS: None. FINDINGS: Fluoroscopy was provided for intraoperative procedure. Please refer to the operative repo rt for further discussion. IMPRESSION: IMAGE(S) OBTAINED DURING PROCEDURE. COMMENT: Quality ID 145: Final reports for procedures using fluoroscopy that document radiation exp osure indices, or exposure time and number of fluorographic images (if radiation exposure indices are not available) Please consult full operative report of the attending physician for description of the procedure. TECHNICAL DOCUMENTATION: JOB ID: [id number] 2010 [employer]- All Rights Reserved Reading location - IP/workstation name: [email or web address]
[2020-04-23 13:25] VITALS: BP 115/68
== END 2020-04-23 13:00 | disposition home or self-care (01) ==
LOC: OROUT 06:44
PROVIDERS: ATTEND Surgery
DX: C25.9 Malignant neoplasm of pancreas, unspecified (principal); Z88.8 Allergy status to other drugs, medicaments and biological substances; Z88.1 Allergy status to other antibiotic agents; I25.10 Atherosclerotic heart disease of native coronary artery without angina pectoris; I10 Essential (primary) hypertension; E11.9 Type 2 diabetes mellitus without complications
CPT/HCPCS: 36561; 93005; 36415 ×2; 82947; 85025; 85610; 85730; 87635; 80048; 83036; 71045 ×2; 77001; 93010; 00532; C1788; J2250; J3490; J2405; J7050; J2704; J0690; J1642; J1741; C9803; 532; J3010

== ENCOUNTER 2020-05-04 15:06 | Inpatient (IN) | payer OTHER ==
[2020-05-04] MEDS ORDERED: NORMAL SALINE 1000 ML 1,000 ML IV ONE ×3 (15:28→17:51)
--- NOTE | 2020-05-04 15:29 | ER Document Report ---
ED Medical Screen (RME) - General Stated Complaint: SOB/POSSIBLE LOW BP Time Seen by Provider: 05/04/20 15:22 Primary Care Provider: VALERI BENSON PA [Primary Care Provider] - Follow up as needed TRAVEL OUTSIDE OF THE [place] IN LAST 30 DAYS: No - HPI Notes: 05/04/20 15:22 Was called out to see patient in the lobby for concerns of blood pressure. Patient is a 59-year-old female who is newly diagnosed with metastatic adenocarcinoma presents by POV for hypovolemia. The tech was not able to get a blood pressure on her. I did get a manual blood pressure of 60/40 on her right arm, and 50/30 on her left arm. Charge nurse, Paula was made aware immediately and patient was brought back to the main ER so a IV line could be placed for patient to get fluids. Paula stated she would put an IV line in patient so she could receive fluids. Dr. Mccann, ER supervising physician was made aware of patient's blood pressure status., Patient was able to tell me her full name, she does appear to be dusky in color. I have greeted and performed a rapid initial assessment of this patient. A comprehensive ED assessment and evaluation of the patient, analysis of test results and completion of the medical decision making process will be conducted by additional ED providers. PHYSICAL EXAMINATION: CV: s1, s2 regular LUNGS: No respiratory distress Musculoskeletal: Normal range of motion SKIN: dusky color 05/04/20 15:29 - Related Data Allergies/Adverse Reactions: gentamicin Allergy (Verified 04/23/20 07:24) aspirin Adverse Reaction (Verified 04/23/20 07:24) Generalized rash erythromycin base Adverse Reaction (Verified 04/23/20 07:24) Diarrhea Past Medical History - Past Medical History Cardiac Medical History: Reports: Hx Coronary Artery Disease, Hx Hypertension Denies: Hx Heart Attack Pulmonary Medical History: Reports: Hx Pneumonia - 2020 Denies: Hx Asthma, Hx Bronchitis, Hx COPD Neurological Medical History: Denies: Hx Cerebrovascular Accident, Hx Seizures Musculoskeltal Medical History: Reports Hx Arthritis - back, GOUT Past Surgical History: Reports: Hx Hysterectomy - Immunizations Hx Diphtheria, Pertussis, Tetanus Vaccination: Yes Doctor's Discharge - Discharge Referrals: VALERI BENSON PA [Primary Care Provider] - Follow up as needed
[2020-05-04 15:59] LABS: HEMOGLOBIN 9.6 g/dL (12.0-15.5); MEAN CORPUSCULAR HEMOGLOBIN 23.4 pg (27.0-33.4); MEAN CORPUSCULAR HGB CONC 32.1 g/dL (32.0-36.0); MEAN CORPUSCULAR VOLUME 73 fl (80-97); RED BLOOD COUNT 4.11 10^6/uL (3.72-5.28); RED CELL DISTRIBUTION WIDTH 20.4 % (11.5-14.0); WHITE BLOOD COUNT 7.6 10^3/uL (4.0-10.5)
--- NOTE | 2020-05-04 16:01 | RADIOLOGY REPORT (SQ) ---
EXAM DESCRIPTION: CHEST SINGLE VIEW IMAGES COMPLETED DATE/TIME: 05/04/2020 3:50 pm REASON FOR STUDY: Hypovolemia COMPARISON: 04/23/2020 EXAM PARAMETERS: NUMBER OF VIEWS: One view. TECHNIQUE: Single frontal radiographic view of the chest acquired. RADIATION DOSE: NA LIMITATIONS: None. FINDINGS: LUNGS AND PLEURA: Chronic interstitial changes. No focal infiltrate or effusion. MEDIASTINUM AND HILAR STRUCTURES: No masses. Contour normal. HEART AND VASCULAR STRUCTURES: Heart normal in size. Normal vasculature. BONES: No acute findings. HARDWARE: Injection port on the left. OTHER: No other significant finding. IMPRESSION: Chronic lung changes. No acute cardiopulmonary findings. TECHNICAL DOCUMENTATION: JOB ID: [id number] [employer]- All Rights Reserved Reading location - IP/workstation name: [email or web address]
[2020-05-04 16:09] LABS: ALKALINE PHOSPHATASE 289 U/L (38-126); ANION GAP 15 (5-19); ASPARTATE AMINO TRANSFERASE 86 U/L (14-36); BILIRUBIN,DIRECT 0.8 mg/dL (0.0-0.4); BLOOD UREA NITROGEN 106 mg/dL (7-20); CALCIUM 9.1 mg/dL (8.4-10.2); CARBON DIOXIDE 17 mmol/L (22-30); CHLORIDE 98 mmol/L (98-107); GLUCOSE 164 mg/dL (75-110); POTASSIUM 5.1 mmol/L (3.6-5.0); TOTAL PROTEIN 6.3 g/dL (6.3-8.2)
--- NOTE | 2020-05-04 16:19 | EKG REPORT ---
SEVERITY:- NORMAL ECG - SINUS RHYTHM : Confirmed by: Josefina Boss MD 04-May-2020 16:18:41
--- NOTE | 2020-05-04 16:25 | ER Document Report ---
ED Blood Pressure Problem <KRAINE MCCANN - Last Filed: 05/04/20 17:34> - General TRAVEL OUTSIDE OF THE [place] IN LAST 30 DAYS: No <SHONA BRENNAN - Last Filed: 05/04/20 18:29> - General Chief Complaint: Blood Pressure Problem Stated Complaint: SOB/POSSIBLE LOW BP Time Seen by Provider: 05/04/20 15:22 Primary Care Provider: VALERI BENSON PA [Primary Care Provider] - Follow up as needed Notes: CHIEF COMPLAINT: Dehydration, hypotension HPI: 59-year-old female with history of type 2 diabetes, GERD, hypercholesteremia, hypothyroidism, CAD with history of 1 stent placed 2 years ago who is on Plavix presenting for dehydration and hypotension. She also has history of pancreatic cancer had her first chemotherapy treatment 1 week ago receiving Gemzar and Abraxate. Patient developed stomatitis post chemotherapy and has been unable to take oral fluids all week. Report was called in by Dr. Chun, Hematology/Oncology who indicates patient has received 2 rounds of IV fluids in their office but was hypotensive and nauseated today and she felt like patient needed further evaluation here. Patient reports abdominal pain in the epigastric region with a burning sensation similar to her reflux disease. She does report having multiple episodes of diarrhea and states that she feels from all the diarrhea she has developed some hemorrhoids for which she has been using witch kerri and hemorrhoid cream. She reports that she has seen some blood from the rectum. Patient has had nausea but has not had vomiting. She states she is on Dilaudid and a fentanyl patch which she changed yesterday. She does report shortness of breath in the last 4 days. No fever. ROS: See HPI - all other systems were reviewed and are otherwise negative Constitutional: no fever Eyes: no drainage, no blurred vision ENT: no runny nose, no sore throat Cardiovascular: no chest pain Resp: + SOB, no cough GI: no vomiting, no diarrhea, + abdominal pain : no dysuria Integumentary: no rash Allergy: no hives Musculoskeletal: no extremity pain or swelling Neurological: no numbness/tingling, no weakness MEDICATIONS: I agree with the patient medications as charted by the RN. ALLERGIES: I agree with the allergies as charted by the RN. PAST MEDICAL HISTORY/PAST SURGICAL HISTORY: Reviewed and agree as charted by RN. SOCIAL HISTORY: Reviewed and agree as charted by RN. FAMILY HISTORY: No significant familial comorbid conditions directly related to patient complaint EXAM: Reviewed vital signs as charted by RN. CONSTITUTIONAL: Alert and oriented and responds appropriately to questions. Ill-appearing; well-nourished HEAD: Normocephalic; atraumatic EYES: PERRL; Conjunctivae clear, sclerae non-icteric ENT: normal nose; no rhinorrhea; dry mucous membranes; posterior pharynx with multiple small ulcerative type lesions and erosion, no uvula edema or deviation, no tonsillar hypertrophy, phonation normal NECK: Supple without meningismus; non-tender; no cervical lymphadenopathy, no masses CARD: RRR; no murmurs, no clicks, no rubs, no gallops; symmetric distal pulses RESP: Normal chest excursion without splinting or tachypnea; breath sounds clear and equal bilaterally; no wheezes, no rhonchi, no rales, pulse oximetry 98% on room air not hypoxic. Port is noted in the left upper chest wall ABD/GI: Obese, normal bowel sounds; non-distended; soft, tenderness noted in the epigastric and left lower quadrant region on palpation, no rebound, no guarding; no palpable organomegaly or masses. Rectal: With female kick press setter present. Small external nonthrombosed hemorrhoid is noted at 6:00. Good rectal tone. There is no stool in the rectal vault, no visible blood, no palpable masses, Hemoccult positive BACK: The back appears normal and is non-tender to palpation, there is no CVA tenderness EXT: Normal ROM in all joints; non-tender to palpation; no cyanosis, no effusions, no edema SKIN: Normal color for age and race; warm; dry; good turgor; no acute lesions noted NEURO: Moves all extremities equally; Motor and sensory function intact PSYCH: The patient's mood and manner are appropriate. Grooming and personal hygiene are appropriate. MDM: 59-year-old female with history of pancreatic cancer finished her first round of chemotherapy 1 week ago, 4 days of shortness of breath, stomatitis, dehydration, and diarrhea with generalized abdominal discomfort. Does have history of reflux disease. Saw her oncologist today and was referred into the emergency department. Patient markedly hypotensive in triage blood pressure systolic was 60. Patient was immediately brought back and roomed in the emergency department and I immediately saw the patient. IV fluids have started and patient's blood pressure has now improved to 112/40 1:09 liter of normal saline. Her lactic acid is elevated at 2.8 we will give second liter of normal saline although I believe this is more likely dehydration at this time. I did speak with her oncologist Dr. Emerson who also believes this is the case. Oncology does not believe that the patient shortness of breath is likely caused by a PE at this time. Given her abdominal complaints will obtain CT imaging. It was noted that her creatinine is significantly elevated and patient is in acute julian al failure. Will CT without contrast. Discussed with Dr. Mccann who has evaluated the patient (SHONA BRENNAN) - Related Data Allergies/Adverse Reactions: gentamicin Allergy (Verified 04/23/20 07:24) aspirin Adverse Reaction (Verified 04/23/20 07:24) Generalized rash erythromycin base Adverse Reaction (Verified 04/23/20 07:24) Diarrhea Past Medical History - Social History Smoking Status: Never Smoker Frequency of alcohol use: None Drug Abuse: None Family History: Reviewed & Not Pertinent - Past Medical History Cardiac Medical History: Reports: Hx Coronary Artery Disease, Hx Hypertension Denies: Hx Heart Attack Pulmonary Medical History: Reports: Hx Pneumonia - 2020 Denies: Hx Asthma, Hx Bronchitis, Hx COPD Neurological Medical History: Denies: Hx Cerebrovascular Accident, Hx Seizures Musculoskeletal Medical History: Reports Hx Arthritis - back, GOUT Past Surgical History: Reports: Hx Hysterectomy - Immunizations Hx Diphtheria, Pertussis, Tetanus Vaccination: Yes Hx Pneumococcal Vaccination: 09/10/15 <SHONA BRENNAN - Last Filed: 05/04/20 18:29> Physical Exam - Vital signs Vitals: Resp 23 H 05/04/20 15:30 Course - Laboratory Result Diagrams: 05/04/20 15:28 05/04/20 15:28 <KARINE MCCANN - Last Filed: 05/04/20 17:34> - Laboratory Result Diagrams: 05/04/20 15:28 05/04/20 15:28 <SHONA BRENNAN - Last Filed: 05/04/20 18:29> - Re-evaluation Re-evalutation: 05/04/20 17:34 I did personally see and examine this patient with Shona Brennan PA-C. Patient has been having diarrhea for one week with increasing SOB and GERD (after coming off her pantoprozole, but not having been able to start her prilosec) and is now feeling very SOB and like she is going to pass out whne she walks. After speaking with Dr. Ramos via telehealth she was advised to come to the ED. 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 On arrival patient was quite pale ill-appearing and severely hypotensive though she was neurologically intact. Alert and oriented x3, moving all 4 extremities, heart reveals regular rate and rhythm with no murmurs gallops or rubs, lungs were clear to auscultation bilaterally and abdomen was soft, nontender and nondistended. Patient's blood pressure responded very well and very quickly to an initial bolus of crystalloid. Further fluids were withheld until we saw her hemoglobin, it is not low enough to need transfusion at this time, patient will be given more fluids. Patient was found to be in acute renal failure, this may be coming from dehydration from decreased oral intake due to stomatitis and severe diarrhea, patient is being hydrated and a Orozco catheter will be placed. We are also performing CT scan of the abdomen pelvis to look for any signs of infection or potential metastatic obstruction of the ureters causing acute renal failure. I will continue to follow this patient along with Shona. (KARINE MCCANN) 05/04/20 16:35 Ekg NSR with ventricular rate 77, OH 160, no other ectopy, reviewed by Dr. Mccann 05/04/20 17:52 Patient does not appear to be significantly thrombocytopenic or anemic. I believe that patient's acute renal failure likely from dehydration from the stomatitis and the diarrhea. Awaiting CT results. Nursing is indicated that patient's blood pressure has decreased slightly again with a systolic pressure in the mid 80s, will hang third liter of normal saline at 250 mL/h. 05/04/20 18:28 CT suggests metastatic cancer through the abdomen and lungs. I did discuss this with the patient. BNP was mildly elevated but patient did get aggressive rehydration given her blood pressures. Patient's lactic acid likely a result of the severe dehydration. Discussed with Cass Sumner NP for hospitalist group. We discussed the patient's case. Admit to telemetry observation (SHONA BRENNAN) - Vital Signs Vital signs: Temp Pulse Resp BP Pulse Ox 23 H 98/52 L 97 05/04/20 18:02 05/04/20 18:02 05/04/20 18:02 - Laboratory Laboratory results interpreted by me: 05/04/20 05/04/20 05/04/20 15:28 15:28 15:28 Hgb 9.6 L Hct 30.0 L MCV 73 L MCH 23.4 L RDW 20.4 H Plt Count 149 L Seg Neuts % (Manual) 88 H Lymphocytes % (Manual) 8 L Monocytes % (Manual) 0 L Abs Monocytes (Manual) 0.0 L PT Sodium 130.3 L Potassium 5.1 H Carbon Dioxide 17 L BUN 106 H Creatinine 3.82 H Est GFR ( Amer) 15 L Est GFR (MDRD) Non-Af 12 L Glucose 164 H Lactic Acid Direct Bilirubin 0.8 H AST 86 H ALT 62 H Alkaline Phosphatase 289 H NT-Pro-B Natriuret Pep 8850 H Albumin 3.0 L 05/04/20 05/04/20 15:28 15:40 Hgb Hct MCV MCH RDW Plt Count Seg Neuts % (Manual) Lymphocytes % (Manual) Monocytes % (Manual) Abs Monocytes (Manual) PT 22.4 H Sodium Potassium Carbon Dioxide BUN Creatinine Est GFR ( Amer) Est GFR (MDRD) Non-Af Glucose Lactic Acid 2.6 H Direct Bilirubin AST ALT Alkaline Phosphatase NT-Pro-B Natriuret Pep Albumin Discharge <KARINE MCCANN - Last Filed: 05/04/20 17:34> - Discharge Admitting Provider: Alexis (Hospitalist) Unit Admitted: Telemetry <SHONA BRENNAN - Last Filed: 05/04/20 18:29> - Discharge Clinical Impression: YESSENIA (acute kidney injury), Dehydration, Stomatitis and mucositis Diarrhea Qualifiers: Diarrhea type: unspecified type Qualified Code(s): R19.7 - Diarrhea, uns pecified Condition: Fair Disposition: ADMITTED OBSERVATION Referrals: VALERI BENSON PA [Primary Care Provider] - Follow up as needed
[2020-05-04] MEDS ORDERED: PANTOPRAZOLE SODIUM 40 MG VIAL IV ONE (16:35)
[2020-05-04 16:48] LABS: ABSOLUTE LYMPHOCYTES# (MANUAL) 0.8 10^3/uL (0.5-4.7); BASOPHILS % (MANUAL) 0 % (0-2); EOSINOPHILS % (MANUAL) 2 % (0-6); LYMPHOCYTES % (MANUAL) 8 % (13-45); MONOCYTES % (MANUAL) 0 % (3-13); NUCLEATED RED BLOOD CELLS 3 /100 WBC (0); SEGMENTED NEUTROPHILS % (MAN) 88 % (42-78); TOTAL CELLS COUNTED 100
[2020-05-04 16:52] LABS: ANISOCYTOSIS 2+; HYPOCHROMASIA 1+; OVALOCYTES 1+; PLATELET CLUMPS PRESENT; PLATELET COMMENT DECREASED; POIKILOCYTOSIS 1+; POLYCHROMASIA 1+
[2020-05-04 16:54] LABS: HYPERSEGMENTED NEUTROPHILS PRESENT; PLATELET COUNT 149 10^3/uL (150-450)
[2020-05-04 17:33] LABS: INTERNATIONAL RATION (INR) 1.96; PROTHROMBIN TIME 22.4 SEC (11.4-15.4)
--- NOTE | 2020-05-04 18:16 | RADIOLOGY REPORT (SQ) ---
EXAM DESCRIPTION: CT ABD/PELVIS NO ORAL OR IV IMAGES COMPLETED DATE/TIME: 05/04/2020 5:04 pm REASON FOR STUDY: abd pain, hypotension, pancreatic CA, Arf COMPARISON: None. TECHNIQUE: CT scan of the abdomen and pelvis performed without intravenous or oral contrast. Images reviewed with lung, soft tissue, and bone windows. Reconstructed coronal and sagittal MPR images revi ewed. All images stored on PACS. All CT scanners at this facility use dose modulation, iterative reconstruction, and/or weight based d osing when appropriate to reduce radiation dose to as low as reasonably achievable (ALARA). [facility]: Dose Right [facility]: CareDose [facility]: Dose Right [facility]: Teradose 4D [facility]: [facility] RADIATION DOSE: CT Rad equipment meets quality standard of care and radiation dose reduction techniq ues were employed. CTDIvol: 15.4 mGy. DLP: 886 mGy-cm. LIMITATIONS: None. FINDINGS: LOWER CHEST: Multiple innumerable pulmonary nodules in the visualized lungs, some of the largest measure up to 8.0 mm. Considerations for these findings include metastatic disease in view o f the patient's given history. Very small right pleural effusion. Coronary artery calcifications. NON-CONTRASTED LIVER, SPLEEN, ADRENALS: Small volume of right perihepatic free fluid and fluid in th e right paracolonic colonic gutter. The liver is prominent in size and measures 20 4.0 cm in length. Several areas sized hypoattenuated hepatic lesions, with one of the largest measuring approximately 7.4 cm in diameter. Considerations for these findings include metastatic disease. A large soft tissue mass in the head of the pancreas extends into the luz hepatis and portacaval re gions. The mass lies adjacent to the right side of the celiac and superior mesenteric arteries. Thi s finding may be consistent with the patient's known history of pancreatic neoplasm with associated l ymphadenopathy. Intrahepatic biliary dilatation is present. The tumor maybe extending into the luz l veins. The spleen measures 14.2 cm in length and is prominent in size. Heterogenous appearance to the splee n. Evaluation is limited by lack of IV contrast. PANCREAS: See above discussion. GALLBLADDER: Prior cholecystectomy. RIGHT KIDNEY AND URETER: No suspicious masses. Assessment limited by lack of IV contrast. No signif icant calcifications. No hydronephrosis or hydroureter. LEFT KIDNEY AND URETER: No suspicious masses. Assessment limited by lack of IV contrast. No signifi cant calcifications. No hydronephrosis or hydroureter. AORTA AND RETROPERITONEUM: Extensive soft tissue mass surrounds the inferior vena cava and the abdom inal aorta with a maximum diameter of approximately 7.3 cm. The right and left renal veins also surr ounded by the mass. Considerations for this finding includes retroperitoneal lymphadenopathy. No an eurysm. BOWEL AND PERITONEAL CAVITY: No obvious masses or inflammatory changes. No free fluid. APPENDIX: Prior appendectomy. PELVIS, BLADDER, AND ABDOMINAL WALL: Prior hysterectomy. Small collection of free fluid in the righ t hemipelvis. Bladder normal. BONES: The patient's hardware in the mid lower lumbar spine produces artifact limiting detail somewh at. OTHER: An ill-defined 4.4 cm soft tissue spiculated appearing mass in the anterior subcutaneous tiss ues of the lower abdomen, sagittal image 64, series 602. If the patient has any prior surgery, these findings may be on a postsurgical basis, other differential diagnostic considerations include metast atic disease. IMPRESSION: 1. Multiple innumerable pulmonary nodules in the visualized lungs. Considerations for these findings include metastatic disease in view of the patient's given history. Very small right p leural effusion. 2. Hepatomegaly and splenomegaly. There are multiple various sized hypoattenuated hepatic lesions p robably represent metastatic disease. The possibility of splenic lesions not entirely excluded. 3. Large soft tissue mass in the head of the pancreas which extends into the luz hepatis and luz caval regions probably consistent with the patient's known history of pancreatic neoplasm with associ ated lymphadenopathy. Intrahepatic biliary dilatation is suggested with soft tissue density within t he vessels may represent tumor thrombus. 4. Prominent retroperitoneal lymphadenopathy. 5. The patient's hardware obscures detail somewhat in the abdomen and pelvic region. 6. Ill-defined soft tissue mass in the anterior subcutaneous tissues of the lower abdomen. If surge ry has been performed, this may be on a postsurgical basis, if no history of surgery, considerations for this finding includes metastatic disease. 7. Additional findings as above. COMMENT: Quality ID # [id number]: Final reports with documentation of one or more dose reduction techniques (e.g., Automated exposure control, adjustment of the mA and/or kV according to patient size, use of iterative reconstruction technique) TECHNICAL DOCUMENTATION: JOB ID: [id number] [employer]- All Rights Reserved Reading location - IP/workstation name: [email or web address]
[2020-05-04 18:36] LABS: APPEARANCE,URINE SLIGHTLY-CLOUDY; BILIRUBIN,URINE NEGATIVE (NEGATIVE); COLOR,URINE YELLOW; GLUCOSE, URINE NEGATIVE (NEGATIVE); KETONES,URINE NEGATIVE (NEGATIVE); LEUKOCYTE ESTERASE,URINE NEGATIVE (NEGATIVE); NITRITE,URINE NEGATIVE (NEGATIVE); PROTEIN,URINE 30 mg/dL (NEGATIVE); URINE SPECIFIC GRAVITY 1.014; UROBILINOGEN,URINE NEGATIVE mg/dL (<2.0)
[2020-05-04] MEDS ORDERED: IPRATROPIUM/ALBUTEROL 0.5-2.5 MG/3 ML AMPUL NEB PRN (20:09)
[2020-05-04] MEDS ORDERED: PROMETHAZINE HCL INJ 25 MG/1 ML VIAL IV PRN (20:09)
[2020-05-04] MEDS ORDERED: ACETAMINOPHEN 325 MG TABLET PO PRN (20:09)
[2020-05-04] MEDS ORDERED: ONDANSETRON HCL INJ/PF 4 MG/2 ML SDV IV PRN (20:09)
--- NOTE | 2020-05-04 21:37 | PDOC H&P ---
History of Present Illness Admission Date/PCP: 05/04/20 18:49 RAYMUNDO BOOKER History of Present Illness: ZBIGNIEW TRUJILLO is a 59 year old female past medical history of diabetes, GERD, hypercholesterolemia, hypothyroidism, CAD s/p stent placement times 2 years, hypertension, who was recently diagnosed with metastatic pancreatic cancer and currently undergoing chemotherapy on Gemzar and Abraxate by Dr. Ramos as outpatient, since being started on chemotherapy patient developed severe stomatitis and cannot take any oral intake, she has also developed epigastric abdominal pain with nonbloody diarrhea of several episodes daily. In ED she was noted to be very hypotensive and was started on fluid resuscitation and hospital was consulted for admission. Patient denies any fever, chills, shortness of breath, chest pain, joint pain, headache, syncope or presyncope. Past Medical History Cardiac Medical History: Reports: Coronary Artery Disease, Hypertension Denies: Myocardial Infarction Pulmonary Medical History: Reports: Pneumonia - 2020 Denies: Asthma, Bronchitis, Chronic Obstructive Pulmonary Disease (COPD) Neurological Medical History: Denies: Seizures Musculoskeltal Medical History: Reports: Arthritis - back, GOUT Hematology: Reports: Anemia Past Surgical History Past Surgical History: Reports: Hysterectomy Social History Smoking Status: Never Smoker Family History Family History: Reviewed & Not Pertinent Parental Family History Reviewed: Yes Children Family History Reviewed: Yes Sibling(s) Family History Reviewed.: Yes Medication/Allergy Home Medications: Baclofen [Baclofen 10 mg Tablet] 10 mg PO DAILY 05/04/20 Clopidogrel Bisulfate [Plavix 75 mg Tablet] 75 mg PO DAILY 05/04/20 Colchicine [Colcrys 0.6 mg Tablet] 1 tab PO DAILY 05/04/20 Fluticasone Propionate [Flonase Allergy Relief] 1 spray NS BID 05/04/20 Gabapentin [Neurontin 300 mg Capsule] 300 mg PO DAILY 05/04/20 Hydromorphone HCl [Dilaudid 2 mg Tablet] 2 mg PO DAILY 05/04/20 Ibuprofen [Advil] 100 mg PO DAILY 05/04/20 Indomethacin [Indocin 50 mg Supp] 50 mg [place] DAILY 05/04/20 Levothyroxine Sodium [Euthyrox] 150 mcg PO DAILY 05/04/20 Lisinopril [Zestril] 40 mg PO DAILY 05/04/20 Loratadine [Claritin 10 mg Tablet] 10 mg PO DAILY 05/04/20 Melatonin 10 mg PO QHS 05/04/20 Metformin HCl [Metformin HCl ER] 500 mg PO DAILY 05/04/20 Metoprolol Tartrate [Lopressor 25 mg Tablet] 25 mg PO DAILY 05/04/20 Morphine Sulfate [Morphine Ir 15 Mg Tablet] 15 mg PO DAILY 05/04/20 Olopatadine HCl [Pazeo] 2.5 ml OP DAILY 05/04/20 [place]-3 Acid Ethyl Esters [Lovaza] 1 gm PO BID 05/04/20 Ondansetron HCl [Zofran 8 mg Tablet] 8 mg PO Q8HP PRN 05/04/20 Polyethylene Glycol 3350 [Miralax Powder 17 gm/Packet] 1 packet PO BID 05/04/20 Promethazine HCl [Phenergan 25 mg Tablet] 25 mg PO Q6HP PRN 05/04/20 Rosuvastatin Calcium [Crestor] 20 mg PO DAILY 05/04/20 Tizanidine HCl [Zanaflex 4 Mg Tablet] 4 mg PO DAILY 05/04/20 Vitamin A/Vit C/Zinc/Propolis [Zinc 15 Mg Lozenges] 15 mg PO DAILY 05/04/20 Allergies/Adverse Reactions: gentamicin Allergy (Verified 04/23/20 07:24) aspirin Adverse Reaction (Verified 04/23/20 07:24) Generalized rash erythromycin base Adverse Reaction (Verified 04/23/20 07:24) Diarrhea Review of Systems Review of Systems: as per hpi Physical Exam Vital Signs: Temp Pulse Resp BP Pulse Ox 28 H 109/54 L 95 05/04/20 20:45 05/04/20 20:45 05/04/20 20:45 Intake & Output 05/03/20 05/04/20 05/05/20 06:59 06:59 06:59 Intake Total 1999 Output Total 45 Balance 1954 Weight 82.1 kg General appearance: PRESENT: no acute distress, obese, well-developed, well- nourished Head exam: PRESENT: atraumatic, normocephalic Respiratory exam: PRESENT: clear to auscultation yadi. ABSENT: rales, rhonchi, wheezes Cardiovascular exam: PRESENT: RRR. ABSENT: diastolic murmur, rubs, systolic murmur Pulses: PRESENT: normal dorsalis pedis pul GI/Abdominal exam: PRESENT: normal bowel sounds, soft, tenderness. ABSENT: distended, guarding, mass, organolmegaly, rebound Extremities exam: PRESENT: +1 edema Neurological exam: PRESENT: alert, awake, oriented to person, oriented to place, oriented to time, oriented to situation, CN II-XII grossly intact. ABSENT: motor sensory deficit Skin exam: PRESENT: dry, intact, warm. ABSENT: cyanosis, rash Results Laboratory Results: 05/04/20 15:28 05/04/20 15:28 05/04/20 05/04/20 05/04/20 15:28 15: 15:28 WBC 7.6 RBC 4.11 Hgb 9.6 L Hct 30.0 L MCV 73 L MCH 23.4 L MCHC 32.1 RDW 20.4 H Plt Count 149 L Seg Neutrophils % Not Reportable Sodium 130.3 L Potassium 5.1 H Chloride 98 Carbon Dioxide 17 L Anion Gap 15 BUN 106 H Creatinine 3.82 H Est GFR ( Amer) 15 L Glucose 164 H Lactic Acid Calcium 9.1 Total Bilirubin 1.0 AST 86 H Alkaline Phosphatase 289 H Total Protein 6.3 Albumin 3.0 L Lipase 281.2 Urine Color Urine Appearance Urine pH Ur Specific [place] Urine Protein Urine Glucose (UA) Urine Ketones Urine Blood Urine Nitrite Ur Leukocyte Esterase Urine WBC (Auto) Urine RBC (Auto) Blood Type Antibody Screen 05/04/20 05/04/20 05/04/20 15:40 17:34 18:10 WBC RBC Hgb Hct MCV MCH MCHC RDW Plt Count Seg Neutrophils % Sodium Potassium Chloride Carbon Dioxide Anion Gap BUN Creatinine Est GFR ( Amer) Glucose Lactic Acid 2.6 H Calcium Total Bilirubin AST Alkaline Phosphatase Total Protein Albumin Lipase Urine Color YELLOW Urine Appearance SLIGHTLY-CLOUDY Urine pH 5.0 Ur Specific [place] 1.014 Urine Protein 30 H Urine Glucose (UA) NEGATIVE Urine Ketones NEGATIVE Urine Blood SMALL H Urine Nitrite NEGATIVE Ur Leukocyte Esterase NEGATIVE Urine WBC (Auto) 9 Urine RBC (Auto) 3 Blood Type A POSITIVE Antibody Screen NEGATIVE 05/04/20 05/04/20 15: 15:28 Troponin I < 0.012 NT-Pro-B Natriuret Pep 8850 H Impressions: Chest X-Ray 05/04/20 15:25 IMPRESSION: Chronic lung changes. No acute cardiopulmonary findings. Abdomen/Pelvis CT 05/04/20 16:25 IMPRESSION: 1. Multiple innumerable pulmonary nodules in the visualized lungs. Considerations for these findings include metastatic disease in view of the patient's given history. Very small right pleural effusion. 2. Hepatomegaly and splenomegaly. There are multiple various sized hypoattenuated hepatic lesions probably represent metastatic disease. The possibility of splenic lesions not entirely excluded. 3. Large soft tissue mass in the head of the pancreas which extends into the luz hepatis and portacaval regions probably consistent with the patient's known history of pancreatic neoplasm with associated lymphadenopathy. Intrahepatic biliary dilatation is suggested with soft tissue density within the vessels may represent tumor thrombus. 4. Prominent retroperitoneal lymphadenopathy. 5. The patient's hardware obscures detail somewhat in the abdomen and pelvic region. 6. Ill-defined soft tissue mass in the anterior subcutaneous tissues of the lower abdomen. If surgery has been performed, this may be on a postsurgical basis, if no history of surgery, considerations for this finding includes metastatic disease. 7. Additional findings as above. Assessment and Plan - Diagnosis (1) Hypotension Qualifiers: Hypotension type: orthostatic hypotension Qualified Code(s): I95.1 - Orthostatic hypotension Is this a current diagnosis for this admission?: Yes Plan: Due to low p.o. intake and diarrhea. Presented with hypotension and elevated lactic acid no sign of infection. Afebrile. WBC WNL. Admit to IMCU, cautious volume resuscitation guided by volume status, monitor vitals, fall precautions. (2) Anemia Qualifiers: Anemia type: unspecified type Qualified Code(s): D64.9 - Anemia, unspecified Is this a current diagnosis for this admission?: Yes Plan: As per patient she has had anemia for a long time and the cause of it has not been identified even though she has had upper and lower GI endoscopy in the past although she has noticed blood after wiping herself since he started having anemia. We will obtain iron work-up. B12 for folic acid. As per patient endoscopy and colonoscopy was negative in the past. We will start on iron p.o. or IV infusion based on anemia work-up. (3) CAD (coronary artery disease) Qualifiers: Coronary Disease-Associated Artery/Lesion type: [place] artery [place] vs. transplanted heart: [place] heart Associated angina: without angina Qualified Code(s): I25.10 - Atherosclerotic heart disease of [place] coronary artery without angina pectoris Is this a current diagnosis for this admission?: Yes Plan: History of CAD. Status post stent placement 2018. Denies any anginal symptoms. No acute EKG changes. Troponins negative. Resume antiplatelets. Beta-blockers and statin. Hold GHISLAINE due to YESSENIA. Resume once appropriate. (4) Hypercholesterolemia Is this a current diagnosis for this admission?: Yes Plan: Resume statins. Diet and lifestyle modification recommended. (5) YESSENIA (acute kidney injury) Is this a current diagnosis for this admission?: Yes Plan: Prerenal, most likely due to severe dehydration. Baseline creatinine within normal limits. Cautious volume resuscitation guided by volume status. Avoid nephrotoxic meds. If no improvement will obtain renal ultrasound and consult nephrology. (6) Dehydration Is this a current diagnosis for this admission?: Yes Plan: Due to low p.o. intake caused by stomatitis caused by recent chemotherapy and severe diarrhea caused by chemotherapy. Admit to floor, cautious volume resuscitation guided by volume status. Monitor for fall. (7) Stomatitis and mucositis Is this a current diagnosis for this admission?: Yes Plan: Most likely due to chemotherapy. Multivitamins. Supportive measures. Good oral hygiene. (8) Diabetes Qualifiers: Diabetes mellitus type: type 2 Is this a current diagnosis for this admission?: Yes Plan: Diabetic diet, sliding scale insulin, correctional insulin, long-acting insulin, hypoglycemic protocol, Accu-Chek. Resume home meds upon discharge. (9) Pancreatic cancer Qualifiers: Pancreatic malignancy location: body of pancreas Qualified Code(s): C25.1 - Malignant neoplasm of body of pancreas Is this a current diagnosis for this admission?: Yes Plan: Metastatic pancreatic cancer recently diagnosed. Currently under treatment by Dr. Emerson. Resume home meds. Dr. Emerson will be consulted. (10) Diarrhea Qualifiers: Diarrhea type: unspecified type Qualified Code(s): R19.7 - Diarrhea, unspecified Is this a current diagnosis for this admission?: Yes Plan: Most likely noninfectious caused by chemotherapy. No leukocytosis, no fever. No recent antibiotic use. We will obtain stool culture, stool ova and parasite, stool Gram stain and stool WBC. - Time Time Spent with patient: 35 or more minutes Anticipated Discharge Disposition: Home with Home Health Anticipated Discharge Timeframe: within 72 hours
[2020-05-04] MEDS ORDERED: BENZOCAINE 20% AEROSOL SPRAY 60 GM TP PRN (21:40)
[2020-05-04] MEDS: OXYCODONE-ACETAMINOPHEN 5-325 MG TABLET PO PRN (22:23)
[2020-05-04] MEDS ORDERED: ATORVASTATIN CALCIUM 40 MG TABLET PO ONE (22:30)
[2020-05-04] MEDS: TEMAZEPAM 7.5 MG CAPSULE PO SCH (23:15)
[2020-05-04] MEDS: NYSTATIN/DEXAMETH/DIPHEN SUSP 120 ML PO SCH (23:15)
[2020-05-04] MEDS: FAMOTIDINE INJ/PF 20 MG/2 ML SDV IV SCH (23:15)
[2020-05-04] MEDS: NORMAL SALINE 1000 ML 1,000 ML IV PRN (23:47)
[2020-05-05 00:03] LABS: ANION GAP 11 (5-19); BLOOD UREA NITROGEN 93 mg/dL (7-20); CALCIUM 8.1 mg/dL (8.4-10.2); CARBON DIOXIDE 17 mmol/L (22-30); CHLORIDE 105 mmol/L (98-107); GLUCOSE 138 mg/dL (75-110); POTASSIUM 4.5 mmol/L (3.6-5.0)
[2020-05-05] MEDS: NORMAL SALINE 1000 ML 1,000 ML IV PRN (04:03)
[2020-05-05 05:52] LABS: ALBUMIN 2.2 g/dL (3.5-5.0); ALKALINE PHOSPHATASE 204 U/L (38-126); ANION GAP 11 (5-19); ASPARTATE AMINO TRANSFERASE 64 U/L (14-36); BILIRUBIN,DIRECT 0.6 mg/dL (0.0-0.4); BILIRUBIN,TOTAL 0.7 mg/dL (0.2-1.3); BLOOD UREA NITROGEN 90 mg/dL (7-20); CALCIUM 7.9 mg/dL (8.4-10.2); CARBON DIOXIDE 16 mmol/L (22-30); CHLORIDE 107 mmol/L (98-107); GLUCOSE 108 mg/dL (75-110); IRON(TIBC) 17.3 ug/dL (37-170); TOTAL PROTEIN 4.8 g/dL (6.3-8.2)
[2020-05-05] MEDS: LEVOTHYROXINE SODIUM 0.15 MG TABLET PO SCH (06:21)
[2020-05-05 06:58] LABS: FOLATE 8.26 ng/mL (>2.76)
[2020-05-05] MEDS ORDERED: DIPHENOXYLATE HCL/ATROP SULF 2.5-0.025 MG TABLET PO PRN (08:51)
[2020-05-05] MEDS ORDERED: LOPERAMIDE HCL 2 MG CAPSULE PO PRN (08:57)
[2020-05-05 09:00] LABS: MEAN CORPUSCULAR HEMOGLOBIN 23.4 pg (27.0-33.4); MEAN CORPUSCULAR HGB CONC 31.8 g/dL (32.0-36.0); MEAN CORPUSCULAR VOLUME 74 fl (80-97); RED CELL DISTRIBUTION WIDTH 20.1 % (11.5-14.0); WHITE BLOOD COUNT 4.4 10^3/uL (4.0-10.5)
[2020-05-05 09:28] LABS: RETICULOCYTE COUNT (AUTO) 0.31 % (0.66-2.85)
[2020-05-05 09:29] LABS: PLATELET COUNT 92 10^3/uL (150-450)
[2020-05-05 09:30] LABS: ABSOLUTE LYMPHOCYTES# (MANUAL) 0.6 10^3/uL (0.5-4.7); ABSOLUTE MONOCYTES # (MANUAL) 0.1 10^3/uL (0.1-1.4); BASOPHILS % (MANUAL) 0 % (0-2); EOSINOPHILS % (MANUAL) 0 % (0-6); LYMPHOCYTES % (MANUAL) 14 % (13-45); MONOCYTES % (MANUAL) 3 % (3-13); SEGMENTED NEUTROPHILS % (MAN) 83 % (42-78); TOTAL CELLS COUNTED 100
[2020-05-05 09:33] LABS: ANISOCYTOSIS 2+; HYPOCHROMASIA SLIGHT; OVALOCYTES 2+; PLATELET COMMENT DECREASED; TEAR DROP CELLS SLIGHT
[2020-05-05] MEDS ORDERED: OLOPATADINE HCL OP SCH (10:00)
[2020-05-05] MEDS ORDERED: METOPROLOL TARTRATE 25 MG TABLET PO SCH ×2 (10:00→20:22)
[2020-05-05] MEDS ORDERED: VITAMIN A PO SCH (10:00)
[2020-05-05] MEDS ORDERED: MORPHINE SULFATE IR 15 MG TABLET PO SCH (10:00)
[2020-05-05] MEDS ORDERED: LISINOPRIL 10 MG TABLET PO SCH ×2 (10:00→20:21)
[2020-05-05] MEDS ORDERED: ENOXAPARIN SODIUM INJ 30 MG/0.3 ML DISP.SYRIN SUBCUT SCH (10:00)
[2020-05-05] MEDS ORDERED: HYDROMORPHONE HCL 2 MG TABLET PO SCH (10:00)
[2020-05-05] MEDS ORDERED: OMEGA-3 ACID ETHYL ESTERS 1 GM CAPSULE PO SCH (10:00)
[2020-05-05] MEDS ORDERED: PROPOLIS PO SCH (10:00)
[2020-05-05] MEDS ORDERED: VIT C PO SCH (10:00)
[2020-05-05] MEDS ORDERED: ZINC PO SCH (10:00)
[2020-05-05] MEDS: FAMOTIDINE INJ/PF 20 MG/2 ML SDV IV SCH ×2 (10:55→22:43)
[2020-05-05] MEDS: BACLOFEN 10 MG TABLET PO SCH (10:55)
[2020-05-05] MEDS: COLCHICINE 0.6 MG TABLET PO SCH (10:55)
[2020-05-05] MEDS: DOCUSATE SODIUM 100 MG CAPSULE PO SCH ×2 (10:55→19:18)
[2020-05-05] MEDS: SUCRALFATE 1 GM TABLET PO SCH ×3 (10:56→22:41)
[2020-05-05] MEDS: CLOPIDOGREL BISULFATE 75 MG TABLET PO SCH (10:57)
[2020-05-05] MEDS: TIZANIDINE HCL 4 MG TABLET PO SCH (10:57)
[2020-05-05] MEDS: GABAPENTIN 300 MG CAPSULE PO SCH (10:57)
[2020-05-05] MEDS: OXYCODONE-ACETAMINOPHEN 5-325 MG TABLET PO PRN (10:57)
[2020-05-05] MEDS: NYSTATIN/DEXAMETH/DIPHEN SUSP 120 ML PO SCH ×4 (11:19→22:51)
[2020-05-05] MEDS: FLUTICASONE NASAL SPRAY 50 MCG/SPRY 120 SPRAY/16 GM NASL SCH ×2 (11:19→19:18)
[2020-05-05] MEDS: MULTIVITS W-MIN/IRON SOLN 60 ML PO SCH (11:20)
--- NOTE | 2020-05-05 12:01 | PDOC CONSULTATION ---
Consultation Consult Date: 05/05/20 Provider Consulted: GARETT HOWARD Consult reason:: Hematology/Oncology consultation was requested for patient on active chemo for pancreatic cancer and severe mucositis and gastroenteritis. 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 She was started on Gemzar/abraxane on 04/26/2020. Over the past 5 days, patient has complained of severe heartburn, diarrhea, nausea, and mucositis. She had been treated as outpatient with magic mouth wash, PPI, imodium, and IV fluids as well as antiemetics. However, patient has continued to feel poorly. She was admitted for further IV support. Today, she is worried about the severe heartburn. It was similar in the past due to a bile leak and Biliary stent was placed. She has seen De. Leija in the past for this. Past Medical History Cardiac Medical History: Reports: Coronary Artery Disease, Hypertension Denies: Myocardial Infarction Pulmonary Medical History: Reports: Pneumonia - 2019 Denies: Asthma, Bronchitis, Chronic Obstructive Pulmonary Disease (COPD) Neurological Medical History: Denies: Seizures Malignancy Medical History: Reports: Pancreatic Cancer Musculoskeltal Medical History: Reports: Arthritis - back, GOUT Psychiatric Medical History: Denies: Depression Hematology: Reports: Anemia Past Surgical History Past Surgical History: Reports: Appendectomy, Section, Cholecystectomy, Coronary Stent, Hysterectomy, Orthopedic Surgery Social History Information Source: Patient Lives with: Spouse/Significant other Smoking Status: Never Smoker Electronic Cigarette use?: No Frequency of Alcohol Use: None Hx Recreational Drug Use: No Hx Prescription Drug Abuse: No Family History Family History: Reviewed & Not Pertinent Parental Family History Reviewed: Yes - Mother and father both with CAD Children Family History Reviewed: Yes - Sone age 4 of heart defect Sibling(s) Family History Reviewed.: Yes - Aunt with breast cancer Medication/Allergy Home Medications: Baclofen [Baclofen 10 mg Tablet] 10 mg PO DAILY 05/04/20 Clopidogrel Bisulfate [Plavix 75 mg Tablet] 75 mg PO DAILY 05/04/20 Colchicine [Colcrys 0.6 mg Tablet] 1 tab PO DAILY 05/04/20 Fluticasone Propionate [Flonase Allergy Relief] 1 spray NS BID 05/04/20 Gabapentin [Neurontin 300 mg Capsule] 300 mg PO DAILY 05/04/20 Hydromorphone HCl [Dilaudid 2 mg Tablet] 2 mg PO DAILY 05/04/20 Ibuprofen [Advil] 100 mg PO DAILY 05/04/20 Indomethacin [Indocin 50 mg Supp] 50 mg [place] DAILY 05/04/20 Levothyroxine Sodium [Euthyrox] 150 mcg PO DAILY 05/04/20 Lisinopril [Zestril] 40 mg PO DAILY 05/04/20 Loratadine [Claritin 10 mg Tablet] 10 mg PO DAILY 05/04/20 Melatonin 10 mg PO QHS 05/04/20 Metformin HCl [Metformin HCl ER] 500 mg PO DAILY 05/04/20 Metoprolol Tartrate [Lopressor 25 mg Tablet] 25 mg PO DAILY 05/04/20 Morphine Sulfate [Morphine Ir 15 Mg Tablet] 15 mg PO DAILY 05/04/20 Olopatadine HCl [Pazeo] 2.5 ml OP DAILY 05/04/20 [place]-3 Acid Ethyl Esters [Lovaza] 1 gm PO BID 05/04/20 Ondansetron HCl [Zofran 8 mg Tablet] 8 mg PO Q8HP PRN 05/04/20 Polyethylene Glycol 3350 [Miralax Powder 17 gm/Packet] 1 packet PO BID 05/04/20 Promethazine HCl [Phenergan 25 mg Tablet] 25 mg PO Q6HP PRN 05/04/20 Rosuvastatin Calcium [Crestor] 20 mg PO DAILY 05/04/20 Tizanidine HCl [Zanaflex 4 Mg Tablet] 4 mg PO DAILY 05/04/20 Vitamin A/Vit C/Zinc/Propolis [Zinc 15 Mg Lozenges] 15 mg PO DAILY 05/04/20 Allergies/Adverse Reactions: gentamicin Allergy (Verified 04/23/20 07:24) aspirin Adverse Reaction (Verified 04/23/20 07:24) Generalized rash erythromycin base Adverse Reaction (Verified 04/23/20 07:24) Diarrhea Review of Systems Constitutional: ABSENT: fever(s), headache(s) Eyes: ABSENT: visual disturbances Ears: ABSENT: hearing changes Nose, Mouth, and Throat: PRESENT: mouth pain, sore throat Cardiovascular: ABSENT: chest pain Respiratory: ABSENT: dyspnea Gastrointestinal: PRESENT: diarrhea, dysphagia, heartburn, nausea, vomiting Genitourinary: ABSENT: dysuria Integumentary: ABSENT: rash Neurological: PRESENT: weakness Hematologic/Lymphatic: ABSENT: easy bleeding Physical Exam Vital Signs: Temp Pulse Resp BP Pulse Ox 97.6 F 87 18 129/48 H 88 L 05/05/20 08:56 05/05/20 10:43 05/05/20 10:43 05/05/20 08:56 05/05/20 10:43 Intake & Output 05/04/20 05/05/20 05/06/20 06:59 06:59 06:59 Intake Total 3533 Output Total 645 Balance 2888 Weight 85.3 kg 85.3 kg General appearance: PRESENT: no acute distress, obese Head exam: PRESENT: normocephalic Eye exam: PRESENT: EOMI Mouth exam: PRESENT: moist, tongue midline Neck exam: ABSENT: lymphadenopathy, tenderness Respiratory exam: PRESENT: decreased breath sounds, unlabored Cardiovascular exam: PRESENT: RRR GI/Abdominal exam: PRESENT: soft. ABSENT: tenderness Extremities exam: ABSENT: pedal edema Neurological exam: PRESENT: alert, awake, oriented to person, oriented to place, oriented to time, oriented to situation Psychiatric exam: PRESENT: appropriate affect Skin exam: PRESENT: normal color Results Laboratory Results: 05/05/20 08:36 05/05/20 05:07 05/04/20 05/04/20 05/04/20 15:28 15:28 15:28 WBC 7.6 RBC 4.11 Hgb 9.6 L Hct 30.0 L MCV 73 L MCH 23.4 L MCHC 32.1 RDW 20.4 H Plt Count 149 L Seg Neutrophils % Not Reportable Retic Count (auto) Absolute Retic Sodium 130.3 L Potassium 5.1 H Chloride 98 Carbon Dioxide 17 L Anion Gap 15 BUN 106 H Creatinine 3.82 H Est GFR ( Amer) 15 L Glucose 164 H Lactic Acid Calcium 9.1 Phosphorus Magnesium Iron TIBC % Saturation Ferritin Total Bilirubin 1.0 AST 86 H Alkaline Phosphatase 289 H Total Protein 6.3 Albumin 3.0 L Lipase 281.2 Vitamin B12 Folate Urine Color Urine Appearance Urine pH Ur Specific [place] Urine Protein Urine Glucose (UA) Urine Ketones Urine Blood Urine Nitrite Ur Leukocyte Esterase Urine WBC (Auto) Urine RBC (Auto) Stool Occult Blood Stool for White Cells Blood Type Antibody Screen 05/04/20 05/04/20 05/04/20 15:40 17:34 18:10 WBC RBC Hgb Hct MCV MCH MCHC RDW Plt Count Seg Neutrophils % Retic Count (auto) Absolute Retic Sodium Potassium Chloride Carbon Dioxide Anion Gap BUN Creatinine Est GFR ( Amer) Glucose Lactic Acid 2.6 H Calcium Phosphorus Magnesium Iron TIBC % Saturation Ferritin Total Bilirubin AST Alkaline Phosphatase Total Protein Albumin Lipase Vitamin B12 Folate Urine Color YELLOW Urine Appearance SLIGHTLY-CLOUDY Urine pH 5.0 Ur Specific [place] 1.014 Urine Protein 30 H Urine Glucose (UA) NEGATIVE Urine Ketones NEGATIVE Urine Blood SMALL H Urine Nitrite NEGATIVE Ur Leukocyte Esterase NEGATIVE Urine WBC (Auto) 9 Urine RBC (Auto) 3 Stool Occult Blood Stool for White Cells Blood Type A POSITIVE Antibody Screen NEGATIVE 05/04/20 05/04/20 05/05/20 23:34 23:34 01:11 WBC RBC Hgb Hct MCV MCH MCHC RDW Plt Count Seg Neutrophils % Retic Count (auto) Absolute Retic Sodium 132.7 L Potassium 4.5 Chloride 105 Carbon Dioxide 17 L Anion Gap 11 BUN 93 H Creatinine 3.36 H Est GFR ( Amer) 17 L Glucose 138 H Lactic Acid 1.3 Calcium 8.1 L Phosphorus Magnesium Iron TIBC % Saturation Ferritin Total Bilirubin AST Alkaline Phosphatase Total Protein Albumin Lipase Vitamin B12 Folate Urine Color Urine Appearance Urine pH Ur Specific [place] Urine Protein Urine Glucose (UA) Urine Ketones Urine Blood Urine Nitrite Ur Leukocyte Esterase Urine WBC (Auto) Urine RBC (Auto) Stool Occult Blood Stool for White Cells NO WBCs SEEN Blood Type Antibody Screen 05/05/20 05/05/20 05/05/20 01:11 05:07 05:07 WBC Cancelled RBC Cancelled Hgb Cancelled Hct Cancelled MCV Cancelled MCH Cancelled MCHC Cancelled RDW Cancelled Plt Count Cancelled Seg Neutrophils % Cancelled Retic Count (auto) Cancelled Absolute Retic Cancelled Sodium 134.3 L Potassium 4.0 Chloride 107 Carbon Dioxide 16 L Anion Gap 11 BUN 90 H Creatinine 3.06 H Est GFR ( Amer) 19 L Glucose 108 Lactic Acid Calcium 7.9 L Phosphorus 5.0 H Magnesium 2.3 Iron 17.3 L TIBC 224 L % Saturation 8 Ferritin 913.00 H Total Bilirubin 0.7 AST 64 H Alkaline Phosphatase 204 H Total Protein 4.8 L Albumin 2.2 L Lipase Vitamin B12 > 1000.0 H Folate 8.26 Urine Color Urine Appearance Urine pH Ur Specific [place] Urine Protein Urine Glucose (UA) Urine Ketones Urine Blood Urine Nitrite Ur Leukocyte Esterase Urine WBC (Auto) Urine RBC (Auto) Stool Occult Blood NEGATIVE Stool for White Cells Blood Type Antibody Screen 05/05/20 08:36 WBC 4.4 RBC 3.40 L Hgb 8.0 L Hct 25.0 L MCV 74 L MCH 23.4 L MCHC 31.8 L RDW 20.1 H Plt Count 92 L Seg Neutrophils % Not Reportable Retic Count (auto) 0.31 L Absolute Retic Sodium Potassium Chloride Carbon Dioxide Anion Gap BUN Creatinine Est GFR ( Amer) Glucose Lactic Acid Calcium Phosphorus Magnesium Iron TIBC % Saturation Ferritin Total Bilirubin AST Alkaline Phosphatase Total Protein Albumin Lipase Vitamin B12 Folate Urine Color Urine Appearance Urine pH Ur Specific [place] Urine Protein Urine Glucose (UA) Urine Ketones Urine Blood Urine Nitrite Ur Leukocyte Esterase Urine WBC (Auto) Urine RBC (Auto) Stool Occult Blood Stool for White Cells Blood Type Antibody Screen 05/04/20 05/04/20 15:28 15:28 Troponin I < 0.012 NT-Pro-B Natriuret Pep 8850 H Impressions: Chest X-Ray 05/04/20 15:25 IMPRESSION: Chronic lung changes. No acute cardiopulmonary findings. Abdomen/Pelvis CT 05/04/20 16:25 IMPRESSION: 1. Multiple innumerable pulmonary nodules in the visualized lungs. Considerations for these findings include metastatic disease in view of the patient's given history. Very small right pleural effusion. 2. Hepatomegaly and splenomegaly. There are multiple various sized hypoattenuated hepatic lesions probably represent metastatic disease. The possibility of splenic lesions not entirely excluded. 3. Large soft tissue mass in the head of the pancreas which extends into the luz hepatis and portacaval regions probably consistent with the patient's known history of pancreatic neoplasm with associated lymphadenopathy. Intrahepa tic biliary dilatation is suggested with soft tissue density within the vessels may represent tumor thrombus. 4. Prominent retroperitoneal lymphadenopathy. 5. The patient's hardware obscures detail somewhat in the abdomen and pelvic region. 6. Ill-defined soft tissue mass in the anterior subcutaneous tissues of the lower abdomen. If surgery has been performed, this may be on a postsurgical bas is, if no history of surgery, considerations for this finding includes metastatic disease. 7. Additional findings as above. Assessment & Plan - Diagnosis (1) Dehydration Is this a current diagnosis for this admission?: Yes Plan: Receiving IV fluids. Her BP medications continue, but should be held for hypotension. (2) Hypotension Qualifiers: Hypotension type: orthostatic hypotension Qualified Code(s): I95.1 - Orthostatic hypotension Is this a current diagnosis for this admission?: Yes Plan: As above (3) Pancreatic cancer Qualifiers: Pancreatic malignancy location: body of pancreas Qualified Code(s): C25.1 - Malignant neoplasm of body of pancreas Is this a current diagnosis for this admission?: Yes Plan: s/p cycle #1 chemo. Further treatment to be discussed as outpatient after patient is feeling much better. Most of current symptoms are due to treatment. Will continue to support. (4) Stomatitis and mucositis Is this a current diagnosis for this admission?: Yes Plan: Continue PPI, add H2 stephanie and carafate. Use imodium and lomotil for di arrhea. At her request, I have consulted Dr. Leija to discuss need for ERCP. I have explained to her that I see no indication of any blockage that would need stents right now. I believe her symptoms are due to the chemo. I am hopeful the additions above will help her symptoms. - Plan Summary Plan Summary: Patient was discussed with Dr. Chavis.
[2020-05-05] MEDS ORDERED: NORMAL SALINE 1000 ML 1,000 ML IV PRN (12:43)
--- NOTE | 2020-05-05 14:35 | PDOC PROGRESS REPORT ---
Subjective Progress Note for:: 05/05/20 Subjective:: The patient is in obvious discomfort. Things burn when she tries to swallow them. She still has white patches on her tongue and the oral cavity. Reason For Visit: YESSENIA,DEHYDRATION Physical Exam Vital Signs: Temp Pulse Resp BP Pulse Ox 97.6 F 87 18 129/48 H 88 L 05/05/20 08:56 05/05/20 10:43 05/05/20 10:43 05/05/20 08:56 05/05/20 10:43 Intake & Output 05/04/20 05/05/20 05/06/20 06:59 06:59 06:59 Intake Total 3533 Output Total 645 Balance 2888 Weight 85.3 kg 85.3 kg General appearance: PRESENT: cooperative, well-developed, other - Moderately distressed. Head exam: PRESENT: atraumatic, normocephalic Mouth exam: PRESENT: moist, other - White patches on tongue as well as all around the oropharynx. Respiratory exam: PRESENT: clear to auscultation yadi, decreased breath sounds - At the bases, symmetrical, unlabored. ABSENT: prolonged expiratory phas, rales, rhonchi, tachypnea, wheezes Cardiovascular exam: PRESENT: RRR, +S1, +S2. ABSENT: bradycardia, diastolic murmur, irregular rhythm, systolic murmur, tachycardia GI/Abdominal exam: PRESENT: mass - Palpable hepatic margin, normal bowel sounds, soft, tenderness Rectal exam: PRESENT: deferred Gentrourinary exam: ABSENT: indwelling catheter Extremities exam: PRESENT: +2 edema Neurological exam: PRESENT: alert, awake, oriented to person, oriented to place, oriented to time, oriented to situation, CN II-XII grossly intact. ABSENT: altered Psychiatric exam: PRESENT: appropriate affect - Affect reflects her significant discomfort. ABSENT: agitated, anxious Focused psych exam: ABSENT: delusional, paranoid, restlessness Results Laboratory Results: 05/05/20 08:36 05/05/20 05:07 05/04/20 05/04/20 05/04/20 15:28 15:28 15:28 WBC 7.6 RBC 4.11 Hgb 9.6 L Hct 30.0 L MCV 73 L MCH 23.4 L MCHC 32.1 RDW 20.4 H Plt Count 149 L Seg Neutrophils % Not Reportable Retic Count (auto) Absolute Retic Sodium 130.3 L Potassium 5.1 H Chloride 98 Carbon Dioxide 17 L Anion Gap 15 BUN 106 H Creatinine 3.82 H Est GFR ( Amer) 15 L Glucose 164 H Lactic Acid Calcium 9.1 Phosphorus Magnesium Iron TIBC % Saturation Ferritin Total Bilirubin 1.0 AST 86 H Alkaline Phosphatase 289 H Total Protein 6.3 Albumin 3.0 L Lipase 281.2 Vitamin B12 Folate Urine Color Urine Appearance Urine pH Ur Specific [place] Urine Protein Urine Glucose (UA) Urine Ketones Urine Blood Urine Nitrite Ur Leukocyte Esterase Urine WBC (Auto) Urine RBC (Auto) Stool Occult Blood Stool for White Cells Blood Type Antibody Screen 05/04/20 05/04/20 05/04/20 15:40 17:34 18:10 WBC RBC Hgb Hct MCV MCH MCHC RDW Plt Count Seg Neutrophils % Retic Count (auto) Absolute Retic Sodium Potassium Chloride Carbon Dioxide Anion Gap BUN Creatinine Est GFR ( Amer) Glucose Lactic Acid 2.6 H Calcium Phosphorus Magnesium Iron TIBC % Saturation Ferritin Total Bilirubin AST Alkaline Phosphatase Total Protein Albumin Lipase Vitamin B12 Folate Urine Color YELLOW Urine Appearance SLIGHTLY-CLOUDY Urine pH 5.0 Ur Specific [place] 1.014 Urine Protein 30 H Urine Glucose (UA) NEGATIVE Urine Ketones NEGATIVE Urine Blood SMALL H Urine Nitrite NEGATIVE Ur Leukocyte Esterase NEGATIVE Urine WBC (Auto) 9 Urine RBC (Auto) 3 Stool Occult Blood Stool for White Cells Blood Type A POSITIVE Antibody Screen NEGATIVE 05/04/20 05/04/20 05/05/20 23:34 23:34 01:11 WBC RBC Hgb Hct MCV MCH MCHC RDW Plt Count Seg Neutrophils % Retic Count (auto) Absolute Retic Sodium 132.7 L Potassium 4.5 Chloride 105 Carbon Dioxide 17 L Anion Gap 11 BUN 93 H Creatinine 3.36 H Est GFR ( Amer) 17 L Glucose 138 H Lactic Acid 1.3 Calcium 8.1 L Phosphorus Magnesium Iron TIBC % Saturation Ferritin Total Bilirubin AST Alkaline Phosphatase Total Protein Albumin Lipase Vitamin B12 Folate Urine Color Urine Appearance Urine pH Ur Specific [place] Urine Protein Urine Glucose (UA) Urine Ketones Urine Blood Urine Nitrite Ur Leukocyte Esterase Urine WBC (Auto) Urine RBC (Auto) Stool Occult Blood Stool for White Cells NO WBCs SEEN Blood Type Antibody Screen 05/05/20 05/05/20 05/05/20 01:11 05:07 05:07 WBC Cancelled RBC Cancelled Hgb Cancelled Hct Cancelled MCV Cancelled MCH Cancelled MCHC Cancelled RDW Cancelled Plt Count Cancelled Seg Neutrophils % Cancelled Retic Count (auto) Cancelled Absolute Retic Cancelled Sodium 134.3 L Potassium 4.0 Chloride 107 Carbon Dioxide 16 L Anion Gap 11 BUN 90 H Creatinine 3.06 H Est GFR ( Amer) 19 L Glucose 108 Lactic Acid Calcium 7.9 L Phosphorus 5.0 H Magnesium 2.3 Iron 17.3 L TIBC 224 L % Saturation 8 Ferritin 913.00 H Total Bilirubin 0.7 AST 64 H Alkaline Phosphatase 204 H Total Protein 4.8 L Albumin 2.2 L Lipase Vitamin B12 > 1000.0 H Folate 8.26 Urine Color Urine Appearance Urine pH Ur Specific [place] Urine Protein Urine Glucose (UA) Urine Ketones Urine Blood Urine Nitrite Ur Leukocyte Esterase Urine WBC (Auto) Urine RBC (Auto) Stool Occult Blood NEGATIVE Stool for White Cells Blood Type Antibody Screen 05/05/20 08:36 WBC 4.4 RBC 3.40 L Hgb 8.0 L Hct 25.0 L MCV 74 L MCH 23.4 L MCHC 31.8 L RDW 20.1 H Plt Count 92 L Seg Neutrophils % Not Reportable Retic Count (auto) 0.31 L Absolute Retic Sodium Potassium Chloride Carbon Dioxide Anion Gap BUN Creatinine Est GFR ( Amer) Glucose Lactic Acid Calcium Phosphorus Magnesium Iron TIBC % Saturation Ferritin Total Bilirubin AST Alkaline Phosphatase Total Protein Albumin Lipase Vitamin B12 Folate Urine Color Urine Appearance Urine pH Ur Specific [place] Urine Protein Urine Glucose (UA) Urine Ketones Urine Blood Urine Nitrite Ur Leukocyte Esterase Urine WBC (Auto) Urine RBC (Auto) Stool Occult Blood Stool for White Cells Blood Type Antibody Screen 05/04/20 05/04/20 15:28 15:28 Troponin I < 0.012 NT-Pro-B Natriuret Pep 8850 H Impressions: Chest X-Ray 05/04/20 15:25 IMPRESSION: Chronic lung changes. No acute cardiopulmonary findings. Abdomen/Pelvis CT 05/04/20 16:25 IMPRESSION: 1. Multiple innumerable pulmonary nodules in the visualized lungs. Considerations for these findings include metastatic disease in view of the patient's given history. Very small right pleural effusion. 2. Hepatomegaly and splenomegaly. There are multiple various sized hypoattenuated hepatic lesions probably represent metastatic disease. The possibility of splenic lesions not entirely excluded. 3. Large soft tissue mass in the head of the pancreas which extends into the luz hepatis and portacaval regions probably consistent with the patient's known history of pancreatic neoplasm with associated lymphadenopathy. Intrahe patic biliary dilatation is suggested with soft tissue density within the vessels may represent tumor thrombus. 4. Prominent retroperitoneal lymphadenopathy. 5. The patient's hardware obscures detail somewhat in the abdomen and pelvic region. 6. Ill-defined soft tissue mass in the anterior subcutaneous tissues of the lower abdomen. If surgery has been performed, this may be on a postsurgical b asis, if no history of surgery, considerations for this finding includes metastatic disease. 7. Additional findings as above. Assessment and Plan - Diagnosis (1) Adenocarcinoma of pancreas, stage 4 Is this a current diagnosis for this admission?: Yes Plan: The patient has diffusely metastatic adenocarcinoma of the pancreas with mets to the liver, spleen and both lungs. This is in addition to diffuse lymphadenopathy. Her prognosis is very poor. She received an initial dose of chemotherapy which caused marked decompensation with stomatitis and diarrhea. (2) Hypotension Qualifiers: Hypotension type: orthostatic hypotension Qualified Code(s): I95.1 - Orthostatic hypotension Is this a current diagnosis for this admission?: Yes Plan: Likely due to decreased oral intake from the oral stomatitis as well as liquidy diarrhea with frequent stools during the day. This matches the acute kidney injury as well. She was receiving IV fluids. Her serum creatinine did not improve much. We will continue IV fluids for now and monitor intake and output. (3) Stomatitis and mucositis Is this a current diagnosis for this admission?: Yes Plan: From recent chemotherapy. Supportive care and topical treatment. (4) YESSENIA (acute kidney injury) Is this a current diagnosis for this admission?: Yes Plan: Likely secondary to volume loss. Currently receiving IV fluids. Will monitor renal function and try to avoid nephrotoxic medications or adjust her doses accordingly. (5) Diarrhea Qualifiers: Diarrhea type: unspecified type Qualified Code(s): R19.7 - Diarrhea, unspecified Is this a current diagnosis for this admission?: Yes Plan: Secondary to diarrhea. Imodium and Lomotil are ordered. (6) Anemia Qualifiers: Anemia type: iron deficiency Iron deficiency anemia type: unspecified iron deficiency Qualified Code(s): D50.9 - Iron deficiency anemia, unspecified Is this a current diagnosis for this admission?: Yes Plan: Likely related to her diffusely metastatic adenocarcinoma and recent chemotherapy treatment. Continue to monitor hemoglobin. Hemoglobin is 8.0 today. Will discuss with Dr. Emerson regarding transfusions. (7) CAD (coronary artery disease) Qualifiers: Coronary Disease-Associated Artery/Lesion type: [place] artery [place] vs. transplanted heart: [place] heart Associated angina: without angina Qualified Code(s): I25.10 - Atherosclerotic heart disease of [place] coronary artery without angina pectoris Is this a current diagnosis for this admission?: Yes Plan: Stents placed in 2018. Current condition presents a lot of physiologic stress on the heart. We will monitor vital signs and any evidence of acute coronary syndrome. She remains on Plavix 75 mg daily. (8) Hypercholesterolemia Is this a current diagnosis for this admission?: Yes Plan: Continue atorvastatin. (9) Dehydration Is this a current diagnosis for this admission?: Yes Plan: IV fluids as above. Monitor intake and output. - Time Time Spent with patient: 15-24 minutes Medications reviewed and adjusted accordingly: Yes Anticipated Discharge Disposition: Home with Home Health Anticipated Discharge Timeframe: Unknown
[2020-05-05] MEDS: PANTOPRAZOLE SODIUM 40 MG TABLET.DR PO SCH (17:57)
[2020-05-05] MEDS ORDERED: FUROSEMIDE INJ/PF 40 MG/4 ML SDV ONE (18:40)
[2020-05-05] MEDS ORDERED: DOPAMINE HCL/DEXTROSE 5%-WATER 800 MG/250 ML RTUINJ IV PRN (19:39)
--- NOTE | 2020-05-05 20:31 | PDOC PROGRESS REPORT ---
Subjective Progress Note for:: 05/05/20 Subjective:: I was called urgently to the patient's room. She has had a significant increase in difficulty breathing and now requires 4 L of oxygen. Reason For Visit: YESSENIA,DEHYDRATION Physical Exam Vital Signs: Temp Pulse Resp BP Pulse Ox 97.9 F 33 L 24 H 69/32 L 79 L 05/05/20 19:32 05/05/20 19:28 05/05/20 19:28 05/05/20 19:28 05/05/20 19:28 Intake & Output 05/04/20 05/05/20 05/06/20 06:59 06:59 06:59 Intake Total 3533 357 Output Total 645 700 Balance 2888 -343 Weight 85.3 kg 85.3 kg General appearance: PRESENT: other - Moderate distress. Slightly somnolent possibly due to volume depletion, renal failure or medications. Respiratory exam: PRESENT: rales, symmetrical, tachypnea. ABSENT: prolonged expiratory phas, rhonchi, wheezes Cardiovascular exam: PRESENT: RRR, +S1, +S2. ABSENT: bradycardia, diastolic murmur, irregular rhythm, systolic murmur, tachycardia GI/Abdominal exam: PRESENT: distended, soft, tenderness Rectal exam: PRESENT: deferred Gentrourinary exam: ABSENT: indwelling catheter Extremities exam: PRESENT: +2 edema Neurological exam: PRESENT: awake, oriented to person, oriented to place, oriented to time, oriented to situation, CN II-XII grossly intact. ABSENT: alert - Somewhat sleepy Psychiatric exam: PRESENT: anxious. ABSENT: agitated Results Laboratory Results: 05/05/20 08:36 05/05/20 05:07 05/04/20 05/04/20 05/05/20 23:34 23:34 01:11 WBC RBC Hgb Hct MCV MCH MCHC RDW Plt Count Seg Neutrophils % Retic Count (auto) Absolute Retic Sodium 132.7 L Potassium 4.5 Chloride 105 Carbon Dioxide 17 L Anion Gap 11 BUN 93 H Creatinine 3.36 H Est GFR ( Amer) 17 L Glucose 138 H Lactic Acid 1.3 Calcium 8.1 L Phosphorus Magnesium Iron TIBC % Saturation Ferritin Total Bilirubin AST Alkaline Phosphatase Total Protein Albumin Vitamin B12 Folate Stool Occult Blood Stool for White Cells NO WBCs SEEN 05/05/20 05/05/20 05/05/20 01:11 05:07 05:07 WBC Cancelled RBC Cancelled Hgb Cancelled Hct Cancelled MCV Cancelled MCH Cancelled MCHC Cancelled RDW Cancelled Plt Count Cancelled Seg Neutrophils % Cancelled Retic Count (auto) Cancelled Absolute Retic Cancelled Sodium 134.3 L Potassium 4.0 Chloride 107 Carbon Dioxide 16 L Anion Gap 11 BUN 90 H Creatinine 3.06 H Est GFR ( Amer) 19 L Glucose 108 Lactic Acid Calcium 7.9 L Phosphorus 5.0 H Magnesium 2.3 Iron 17.3 L TIBC 224 L % Saturation 8 Ferritin 913.00 H Total Bilirubin 0.7 AST 64 H Alkaline Phosphatase 204 H Total Protein 4.8 L Albumin 2.2 L Vitamin B12 > 1000.0 H Folate 8.26 Stool Occult Blood NEGATIVE Stool for White Cells 05/05/20 08:36 WBC 4.4 RBC 3.40 L Hgb 8.0 L Hct 25.0 L MCV 74 L MCH 23.4 L MCHC 31.8 L RDW 20.1 H Plt Count 92 L Seg Neutrophils % Not Reportable Retic Count (auto) 0.31 L Absolute Retic Sodium Potassium Chloride Carbon Dioxide Anion Gap BUN Creatinine Est GFR ( Amer) Glucose Lactic Acid Calcium Phosphorus Magnesium Iron TIBC % Saturation Ferritin Total Bilirubin AST Alkaline Phosphatase Total Protein Albumin Vitamin B12 Folate Stool Occult Blood Stool for White Cells 05/04/20 05/04/20 15:28 15:28 Troponin I < 0.012 NT-Pro-B Natriuret Pep 8850 H Impressions: Abdomen/Pelvis CT 05/04/20 16:25 IMPRESSION: 1. Multiple innumerable pulmonary nodules in the visualized lungs. Considerations for these findings include metastatic disease in view of the mir crespo's given history. Very small right pleural effusion. 2. Hepatomegaly and splenomegaly. There are multiple various sized hypoattenuated hepatic lesions probably represent metastatic disease. The possibility of splenic lesions not entirely excluded. 3. Large soft tissue mass in the head of the pancreas which extends into the luz hepatis and portacaval regions probably consistent with the patient's known history of pancreatic neoplasm with associated lymphadenopathy. Intrahepatic biliary dilatation is suggested with soft tissue density within the vessels may represent tumor thrombus. 4. Prominent retroperitoneal lymphadenopathy. 5. The patient's hardware obscures detail somewhat in the abdomen and pelvic region. 6. Ill-defined soft tissue mass in the anterior subcutaneous tissues of the lower abdomen. If surgery has been performed, this may be on a postsurgical basis, if no history of surgery, considerations for this finding includes metastatic disease. 7. Additional findings as above. Assessment and Plan - Diagnosis (1) Acute respiratory failure with hypoxia Is this a current diagnosis for this admission?: Yes Plan: Her oxygen saturations dropped below 80%. This is most likely due to volume repletion for her dehydration and kidney failure. Unfortunately her renal function is still quite poor however we will need to hold the IV fluids and administer Lasix to try and diurese her. Her oxygen demands increase steadily. She is now on 100% nonrebreather mask oxygen supplementation. She still appears to exhibit increased work of breathing. (2) Adenocarcinoma of pancreas, stage 4 Is this a current diagnosis for this admission?: Yes Plan: Diffusely metastatic disease with extremely poor prognosis especially since the patient did not tolerate the first round of chemotherapy. (3) Hypotension Qualifiers: Hypotension type: orthostatic hypotension Qualified Code(s): I95.1 - Orthostatic hypotension Is this a current diagnosis for this admission?: Yes Plan: After the administration of furosemide her systolic blood pressure jumped into the 80s. I gave her 1 L bolus of saline and started a dopamine infusion at 5 mcg/kg/min. (4) Stomatitis and mucositis Is this a current diagnosis for this admission?: Yes (5) YESSENIA (acute kidney injury) Is this a current diagnosis for this admission?: Yes (6) Diarrhea Qualifiers: Diarrhea type: unspecified type Qualified Code(s): R19.7 - Diarrhea, unspecified Is this a current diagnosis for this admission?: Yes Plan: A fecal collection system has been put in place (7) Anemia Qualifiers: Anemia type: iron deficiency Iron deficiency anemia type: unspecified iron deficiency Qualified Code(s): D50.9 - Iron deficiency anemia, unspecified Is this a current diagnosis for this admission?: Yes Plan: Likely contributing to third spacing of fluid. She may benefit from transfusion and possibly albumin (8) CAD (coronary artery disease) Qualifiers: Coronary Disease-Associated Artery/Lesion type: [place] artery [place] vs. transplanted heart: [place] heart Associated angina: without angina Qualified Code(s): I25.10 - Atherosclerotic heart disease of [place] coronary artery without angina pectoris Is this a current diagnosis for this admission?: Yes (9) Hypercholesterolemia Is this a current diagnosis for this admission?: Yes (10) Dehydration Is this a current diagnosis for this admission?: Yes - Time Total Critical Time (Minutes): 40 Medications reviewed and adjusted accordingly: Yes Anticipated Discharge Disposition: Home with Home Health Anticipated Discharge Timeframe: Unknown
[2020-05-05] MEDS: DOPAMINE HCL/DEXTROSE 5%-WATER 800 MG/250 ML RTUINJ IV PRN (20:54)
--- NOTE | 2020-05-05 20:59 | RADIOLOGY REPORT (SQ) ---
CLINICAL INDICATION: acute resp failure. TECHNIQUE: A single portable AP view was obtained of the chest at 2017 hours. COMPARISON: May 04, 2020. FINDINGS: The cardiomediastinal silhouette is prominent. The lungs demonstrate mild interstitial change. No adverse change. No evidence of effusion or pneumothorax. The visualized bones are unremarkable. Left IJ power injectable port catheter tip is at the confluence of brachiocephalic veins. That is suboptimal but without interval change from prior IMPRESSION: No interval change when compared to yesterday.
[2020-05-05] MEDS ORDERED: ATORVASTATIN CALCIUM 40 MG TABLET PO SCH (22:00)
[2020-05-05] MEDS: MELATONIN 5 MG TABLET PO SCH (22:41)
[2020-05-05] MEDS: TEMAZEPAM 7.5 MG CAPSULE PO SCH (22:41)
[2020-05-06] MEDS: LEVOTHYROXINE SODIUM 0.15 MG TABLET PO SCH (05:28)
[2020-05-06] MEDS: PANTOPRAZOLE SODIUM 40 MG TABLET.DR PO SCH ×2 (05:28→18:23)
[2020-05-06] MEDS ORDERED: ACETAMINOPHEN 325 MG TABLET PO PRN (07:30)
[2020-05-06] MEDS ORDERED: PROMETHAZINE HCL INJ 25 MG/1 ML VIAL IV PRN (07:30)
[2020-05-06] MEDS ORDERED: ONDANSETRON HCL INJ/PF 4 MG/2 ML SDV IV PRN (07:30)
--- NOTE | 2020-05-06 07:52 | PDOC PROGRESS REPORT ---
Subjective Progress Note for:: 05/06/20 Subjective:: Patient states that she is still feeling quite poorly. Her blood pressure continues to decrease. A rectal ott was placed yesterday due to the diarrhea. Her heartburn may be a bit better. She tells me that she wants to continue to fight this cancer as much as possible. Reason For Visit: YESSENIA,DEHYDRATION Physical Exam Vital Signs: Temp Pulse Resp BP Pulse Ox 97.6 F 93 25 H 101/57 L 82 L 05/06/20 03:41 05/06/20 07:45 05/06/20 03:41 05/06/20 07:45 05/06/20 03:41 Intake & Output 05/05/20 05/06/20 05/07/20 06:59 06:59 06:59 Intake Total 3533 735 Output Total 645 1700 Balance 2888 -965 Weight 85.3 kg 88 kg General appearance: PRESENT: no acute distress, well-developed Head exam: PRESENT: normocephalic Respiratory exam: PRESENT: unlabored, other - Wearing oxygen. Results Laboratory Results: 05/05/20 08:36 05/05/20 05:07 05/05/20 08:36 WBC 4.4 RBC 3.40 L Hgb 8.0 L Hct 25.0 L MCV 74 L MCH 23.4 L MCHC 31.8 L RDW 20.1 H Plt Count 92 L Seg Neutrophils % Not Reportable Retic Count (auto) 0.31 L 05/04/20 05/04/20 15:28 15:28 Troponin I < 0.012 NT-Pro-B Natriuret Pep 8850 H Impressions: Abdomen/Pelvis CT 05/04/20 16:25 IMPRESSION: 1. Multiple innumerable pulmonary nodules in the visualized lungs. Considerations for these findings include metastatic disease in view of the patient's given history. Very small right pleural effusion. 2. Hepatomegaly and splenomegaly. There are multiple various sized hypoattenuated hepatic lesions probably represent metastatic disease. The possibility of splenic lesions not entirely excluded. 3. Large soft tissue mass in the head of the pancreas which extends into the luz hepatis and portacaval regions probably consistent with the patient's kno wn history of pancreatic neoplasm with associated lymphadenopathy. Intrahepatic biliary dilatation is suggested with soft tissue density within the vessels may represent tumor thrombus. 4. Prominent retroperitoneal lymphadenopathy. 5. The patient's hardware obscures detail somewhat in the abdomen and pelvic region. 6. Ill-defined soft tissue mass in the anterior subcutaneous tissues of the low er abdomen. If surgery has been performed, this may be on a postsurgical basis, if no history of surgery, considerations for this finding includes metastatic disease. 7. Additional findings as above. Chest X-Ray 05/05/20 00:00 IMPRESSION: No interval change when compared to yesterday. Assessment & Plan - Diagnosis (1) Dehydration Is this a current diagnosis for this admission?: Yes Plan: with hypotension. She was started on dopamine drip. Her diarrhea may be a significant contributing factor. However, nurses did not chart that any lomotil or imodium was given yesterday, as ordered except for a single dose. I have strongly encouraged them to use at least 4 doses of each. I will also add levsin PRN for the diarrhea to see if this helps. I will check ECHO today to assess LVEF> (2) Hypotension Qualifiers: Hypotension type: orthostatic hypotension Qualified Code(s): I95.1 - Orthostatic hypotension Is this a current diagnosis for this admission?: Yes Plan: As above. (3) Pancreatic cancer Qualifiers: Pancreatic malignancy location: body of pancreas Qualified Code(s): C25.1 - Malignant neoplasm of body of pancreas Is this a current diagnosis for this admission?: Yes Plan: She received her first dose of chemo. All treatment on hold until her symptoms improve. (4) Stomatitis and mucositis Is this a current diagnosis for this admission?: Yes Plan: Continue PPI, H2 stephanie, carafate. - Time Time Spent with patient: 15-24 minutes - Plan Summary Plan Summary: Monitor blood counts.
[2020-05-06 08:38] LABS: HEMOGLOBIN 9.4 g/dL (12.0-15.5); MEAN CORPUSCULAR HEMOGLOBIN 23.7 pg (27.0-33.4); MEAN CORPUSCULAR HGB CONC 32.4 g/dL (32.0-36.0); MEAN CORPUSCULAR VOLUME 73 fl (80-97); PLATELET COUNT 140 10^3/uL (150-450); RED BLOOD COUNT 3.96 10^6/uL (3.72-5.28); RED CELL DISTRIBUTION WIDTH 19.7 % (11.5-14.0)
[2020-05-06 08:50] LABS: ANION GAP 12 (5-19); BLOOD UREA NITROGEN 80 mg/dL (7-20); CALCIUM 8.8 mg/dL (8.4-10.2); CARBON DIOXIDE 15 mmol/L (22-30); CHLORIDE 108 mmol/L (98-107); GLUCOSE 242 mg/dL (75-110); POTASSIUM 4.3 mmol/L (3.6-5.0)
[2020-05-06 09:24] LABS: WHITE BLOOD COUNT 10.1 10^3/uL (4.0-10.5)
[2020-05-06 09:26] LABS: ABSOLUTE LYMPHOCYTES# (MANUAL) 0.7 10^3/uL (0.5-4.7); ABSOLUTE MONOCYTES # (MANUAL) 0.3 10^3/uL (0.1-1.4); BASOPHILS % (MANUAL) 0 % (0-2); EOSINOPHILS % (MANUAL) 0 % (0-6); HYPOCHROMASIA SLIGHT; LYMPHOCYTES % (MANUAL) 7 % (13-45); MONOCYTES % (MANUAL) 3 % (3-13); SEGMENTED NEUTROPHILS % (MAN) 90 % (42-78); TOTAL CELLS COUNTED 100
[2020-05-06 09:27] LABS: ANISOCYTOSIS 2+; OVALOCYTES SLIGHT; PLATELET COMMENT DECREASED; POIKILOCYTOSIS 1+; TEAR DROP CELLS SLIGHT
[2020-05-06] MEDS ORDERED: FUROSEMIDE INJ/PF 40 MG/4 ML SDV IV SCH (10:00)
--- NOTE | 2020-05-06 10:17 | PDOC PROGRESS REPORT ---
Subjective Progress Note for:: 05/06/20 Subjective:: 59 year old female past medical history of diabetes, GERD, hypercholesterolemia, hypothyroidism, CAD s/p stent placement times 2 years, hypertension, who was recently diagnosed with metastatic pancreatic cancer and currently undergoing chemotherapy on Gemzar and Abraxate by Dr. Ramos as outpatient, since being started on chemotherapy patient developed severe stomatitis and cannot take any oral intake, she has also developed epigastric abdominal pain with nonbloody diarrhea of several episodes daily. In ED she was noted to be very hypotensive and was started on fluid resuscitation and hospital was consulted for admission. Patient denies any fever, chills, shortness of breath, chest pain, joint pain, headache, syncope or presyncope. 05/05- The patient is in obvious discomfort. Things burn when she tries to swallow them. She still has white patches on her tongue and the oral cavity. 05/05-I was called urgently to the patient's room. She has had a significant increase in difficulty breathing and now requires 4 L of oxygen. 05/06/2020-patient is on dopamine drip and on 5 L of oxygen supplementation. Patient is complaining of shortness of breath. She is telling me she has been through a lot last night and thinking about making arrangements for living well, healthcare power of traffic law attorney, CODE STATUS. Requested for hospital extrusion press adjuster communication. Overall prognosis is poor. Patient has a rectal tube and Orozco's catheter at this time. Patient expressed a desire of not going through further chemotherapy. Reason For Visit: YESSENIA,DEHYDRATION Physical Exam Vital Signs: Temp Pulse Resp BP Pulse Ox 97.6 F 99 25 H 100/51 L 82 L 05/06/20 03:41 05/06/20 07:57 05/06/20 03:41 05/06/20 07:57 05/06/20 03:41 Intake & Output 05/05/20 05/06/20 05/07/20 06:59 06:59 06:59 Intake Total 3533 735 Output Total 649 1700 Balance 2668 -965 Weight 85.3 kg 88 kg General appearance: PRESENT: cooperative, other - In moderate distress. Head exam: PRESENT: atraumatic Eye exam: PRESENT: conjunctiva pale, PERRLA Mouth exam: PRESENT: neck supple Teeth exam: PRESENT: poor dentation Neck exam: ABSENT: carotid bruit, JVD, lymphadenopathy, thyromegaly Respiratory exam: PRESENT: crackles, decreased breath sounds, wheezes Cardiovascular exam: PRESENT: irregular rhythm, tachycardia GI/Abdominal exam: PRESENT: normal bowel sounds, soft. ABSENT: distended, guarding, mass, organolmegaly, rebound, tenderness Rectal exam: PRESENT: deferred, other - Rectal tube in place. Gentrourinary exam: PRESENT: indwelling catheter Extremities exam: PRESENT: full ROM, +1 edema. ABSENT: calf tenderness, clubbing, pedal edema Neurological exam: PRESENT: alert, awake, oriented to person, oriented to place, oriented to time, oriented to situation, CN II-XII grossly intact. ABSENT: motor sensory deficit Psychiatric exam: PRESENT: anxious Results Laboratory Results: 05/06/20 08:01 05/06/20 08:01 05/05/20 05/06/20 05/06/20 08:36 08:01 08:01 WBC 4.4 10.1 D RBC 3.40 L 3.96 Hgb 8.0 L 9.4 L Hct 25.0 L 29.0 L MCV 74 L 73 L MCH 23.4 L 23.7 L MCHC 31.8 L 32.4 RDW 20.1 H 19.7 H Plt Count 92 L 140 L Seg Neutrophils % Not Reportable Retic Count (auto) 0.31 L Sodium 134.7 L Potassium 4.3 Chloride 108 H Carbon Dioxide 15 L Anion Gap 12 BUN 80 H Creatinine 2.11 H Est GFR ( Amer) 29 L Glucose 242 H Calcium 8.8 Magnesium 2.1 05/04/20 05/04/20 15:28 15:28 Troponin I < 0.012 NT-Pro-B Natriuret Pep 8850 H Impressions: Abdomen/Pelvis CT 05/04/20 16:25 IMPRESSION: 1. Multiple innumerable pulmonary nodules in the visualized lungs. Considerations for these findings include metastatic disease in view of the patient's given history. Very small right pleural effusion. 2. Hepatomegaly and splenomegaly. There are multiple various sized hypoattenuated hepatic lesions probably represent metastatic disease. The possibility of splenic lesions not entirely excluded. 3. Large soft tissue mass in the head of the pancreas which extends into the luz hepatis and portacaval regions probably consistent with the patient's known history of pancreatic neoplasm with associated lymphadenopathy. Intrahepatic biliary dilatation is suggested with soft tissue density within the vessels may represent tumor thrombus. 4. Prominent retroperitoneal lymphadenopathy. 5. The patient's hardware obscures detail somewhat in the abdomen and pelvic region. 6. Ill-defined soft tissue mass in the anterior subcutaneous tissues of the lower abdomen. If surgery has been performed, this may be on a postsurgical basis, if no history of surgery, considerations for this finding includes metastatic disease. 7. Additional findings as above. Chest X-Ray 05/05/20 00:00 IMPRESSION: No interval change when compared to yesterday. Assessment and Plan - Diagnosis (1) Acute respiratory failure with hypoxia Is this a current diagnosis for this admission?: Yes Plan: Her oxygen saturations dropped below 80%. This is most likely due to volume repletion for her dehydration and kidney failure. Unfortunately her renal function is still quite poor however we will need to hold the IV fluids and administer Lasix to try and diurese her. Her oxygen demands increase steadily. She is now on 100% nonrebreather mask oxygen supplementation. She still appears to exhibit increased work of breathing. 05/06/20-pulse ox in the upper 90s on 5 L of oxygen. Receiving IV diuretics. She is also on a dopamine drip to maintain the blood pressure. Overall prognosis poor condition is critical. Chest x-ray done yesterday compared to previous x-rays no change. (2) Adenocarcinoma of pancreas, stage 4 Is this a current diagnosis for this admission?: Yes Plan: Diffusely metastatic disease with extremely poor prognosis especially since the patient did not tolerate the first round of chemotherapy. 05/06/2020-patient has advanced adenocarcinoma of the pancreas stage IV due to 1 round of chemotherapy unable to tolerate patient does not want to go through further chemotherapy at this time. (3) Hypotension Qualifiers: Hypotension type: orthostatic hypotension Qualified Code(s): I95.1 - Orthostatic hypotension Is this a current diagnosis for this admission?: Yes Plan: After the administration of furosemide her systolic blood pressure jumped into the 80s. I gave her 1 L bolus of saline and started a dopamine infusion at 5 mcg/kg/min. 05/06/2020-patient is hypotensive with a blood pressure of 104/54. She is on 10 mics of dopamine drip at this time. (4) Stomatitis and mucositis Is this a current diagnosis for this admission?: Yes Plan: From recent chemotherapy. Supportive care and topical treatment. 05/06/2020-patient does not want to be on tablets Carafate plan is to change to liquid Carafate from today. (5) YESSENIA (acute kidney injury) Is this a current diagnosis for this admission?: Yes Plan: Likely secondary to volume loss. Currently receiving IV fluids. Will monitor renal function and try to avoid nephrotoxic medications or adjust her doses accordingly. 05/06/2020-serum creatinine on admission is 3.36 improved to 2.11. Acute on chronic kidney injury is improving at this time. (6) Diarrhea Qualifiers: Diarrhea type: unspecified type Qualified Code(s): R19.7 - Diarrhea, unspecified Is this a current diagnosis for this admission?: Yes Plan: A fecal collection system has been put in place 05/06/2020-patient has rectal tube persistent diarrhea may be secondary to chemotherapy. - Time Anticipated Discharge Disposition: Home with Hospice Anticipated Discharge Timeframe: within 48 hours
[2020-05-06] MEDS: SUCRALFATE 1 GM TABLET PO SCH ×3 (12:02→22:21)
[2020-05-06] MEDS: GABAPENTIN 300 MG CAPSULE PO SCH (12:05)
[2020-05-06] MEDS: CLOPIDOGREL BISULFATE 75 MG TABLET PO SCH (12:05)
[2020-05-06] MEDS: COLCHICINE 0.6 MG TABLET PO SCH (12:06)
[2020-05-06] MEDS: TIZANIDINE HCL 4 MG TABLET PO SCH (12:06)
[2020-05-06] MEDS: BACLOFEN 10 MG TABLET PO SCH (12:07)
[2020-05-06] MEDS: HYOSCYAMINE SULFATE 0.125 MG TABLET PO PRN (12:07)
[2020-05-06] MEDS: NYSTATIN/DEXAMETH/DIPHEN SUSP 120 ML PO SCH ×4 (12:08→22:21)
[2020-05-06] MEDS: FLUTICASONE NASAL SPRAY 50 MCG/SPRY 120 SPRAY/16 GM NASL SCH ×2 (12:09→18:23)
[2020-05-06] MEDS: LOPERAMIDE HCL 2 MG CAPSULE PO SCH ×2 (12:18→18:22)
[2020-05-06] MEDS: OXYCODONE-ACETAMINOPHEN 5-325 MG TABLET PO PRN (14:54)
[2020-05-06] MEDS: DOPAMINE HCL/DEXTROSE 5%-WATER 800 MG/250 ML RTUINJ IV PRN (14:58)
[2020-05-06] MEDS: MELATONIN 5 MG TABLET PO SCH (22:20)
[2020-05-06] MEDS: TEMAZEPAM 7.5 MG CAPSULE PO SCH (22:21)
[2020-05-06] MEDS: FAMOTIDINE INJ/PF 20 MG/2 ML SDV IV SCH (22:21)
[2020-05-07] MEDS: LOPERAMIDE HCL 2 MG CAPSULE PO SCH ×4 (02:28→21:30)
[2020-05-07] MEDS: PANTOPRAZOLE SODIUM 40 MG TABLET.DR PO SCH ×2 (05:16→18:56)
[2020-05-07] MEDS: LEVOTHYROXINE SODIUM 0.15 MG TABLET PO SCH (05:16)
[2020-05-07] MEDS: DOPAMINE HCL/DEXTROSE 5%-WATER 800 MG/250 ML RTUINJ IV PRN ×2 (07:02→21:39)
--- NOTE | 2020-05-07 08:38 | PDOC PROGRESS REPORT ---
Subjective Progress Note for:: 05/07/20 Subjective:: Had a long discussion today with patient, her , Dr. Hinson, and nursing staff. Patient is very worried and is not sure that she will survive this hospital admission. She is still having large amounts of liquid diarrhea. She still has pain and all of her regular pain medications have been stopped due to her hypotension. She has not been able to eat much but is tolerating liquids. She has a very dry mouth and still has back pain due to her position in the bed. She is asking to get up to a chair, but BP yesterday was not good enough for this. Reason For Visit: YESSENIA,DEHYDRATION Physical Exam Vital Signs: Temp Pulse Resp BP Pulse Ox 97.9 F 78 18 105/55 L 99 05/07/20 04:39 05/07/20 07:00 05/07/20 04:39 05/07/20 07:00 05/07/20 04:39 Intake & Output 05/06/20 05/07/20 05/08/20 06:59 06:59 06:59 Intake Total 735 2242 Output Total 1700 2900 Balance -965 -658 Weight 88 kg 86.2 kg General appearance: PRESENT: obese Head exam: PRESENT: normocephalic Eye exam: PRESENT: EOMI Respiratory exam: PRESENT: decreased breath sounds GI/Abdominal exam: PRESENT: soft, tenderness Rectal exam: PRESENT: other - rectal ott remains in place. Extremities exam: ABSENT: pedal edema Neurological exam: PRESENT: alert, awake, oriented to person, oriented to place, oriented to time, oriented to situation Psychiatric exam: PRESENT: appropriate affect Focused psych exam: PRESENT: restlessness Skin exam: PRESENT: pallor Results Laboratory Results: 05/06/20 08:01 05/06/20 08:01 05/06/20 05/06/20 08:01 08:01 WBC 10.1 D RBC 3.96 Hgb 9.4 L Hct 29.0 L MCV 73 L MCH 23.7 L MCHC 32.4 RDW 19.7 H Plt Count 140 L Seg Neutrophils % Not Reportable Sodium 134.7 L Potassium 4.3 Chloride 108 H Carbon Dioxide 15 L Anion Gap 12 BUN 80 H Creatinine 2.11 H Est GFR ( Amer) 29 L Glucose 242 H Calcium 8.8 Magnesium 2.1 05/04/20 05/04/20 15:28 15:28 Troponin I < 0.012 NT-Pro-B Natriuret Pep 8850 H Impressions: Abdomen/Pelvis CT 05/04/20 16:25 IMPRESSION: 1. Multiple innumerable pulmonary nodules in the visualized lungs. Considerations for these findings include metastatic disease in view of the patient's given history. Very small right pleural effusion. 2. Hepatomegaly and splenomegaly. There are multiple various sized hypoattenuated hepatic lesions probably represent metastatic disease. The possibility of splenic lesions not entirely excluded. 3. Large soft tissue mass in the head of the pancreas which extends into the luz hepatis and portacaval regions probably consistent with the patient's known history of pancreatic neoplasm with associated lymphadenopathy. Intrahepatic biliary dilatation is suggested with soft tissue density within the vessels may represent tumor thrombus. 4. Prominent retroperitoneal lymphadenopathy. 5. The patient's hardware obscures detail somewhat in the abdomen and pelvic region. 6. Ill-defined soft tissue mass in the anterior subcutaneous tissues of the lower abdomen. If surgery has been performed, this may be on a postsurgical basis, if no history of surgery, considerations for this finding includes metastatic disease. 7. Additional findings as above. Chest X-Ray 05/05/20 00:00 IMPRESSION: No interval change when compared to yesterday. Assessment & Plan - Diagnosis (1) Dehydration Is this a current diagnosis for this admission?: Yes Plan: She is not receiving any IV fluids due to fear of volume overload which may affect her breathing. However, she is also hypotensive, so delicate balance. (2) Hypotension Qualifiers: Hypotension type: orthostatic hypotension Qualified Code(s): I95.1 - Orthostatic hypotension Is this a current diagnosis for this admission?: Yes Plan: Continues Dopamine drip. Hope to wean this today. (3) Pancreatic cancer Qualifiers: Pancreatic malignancy location: body of pancreas Qualified Code(s): C25.1 - Malignant neoplasm of body of pancreas Is this a current diagnosis for this admission?: Yes Plan: All treatment on hold. Will discuss as outpatient if further treatment will be resumed. (4) Stomatitis and mucositis Is this a current diagnosis for this admission?: Yes Plan: I will check for C.dif. Continue imodium and lomotil. Continue pain medications as tolerated with blood pressure. - Time Time Spent with patient: 15-24 minutes - Plan Summary Plan Summary: Will try to get her up in chair today. Push PO fluids. Advance diet as tolerated.
[2020-05-07] MEDS ORDERED: HYDROMORPHONE HCL INJ/PF 2 MG/ML AMPULE IV PRN (08:40)
[2020-05-07 08:46] LABS: HEMATOCRIT 27.3 % (36.0-47.0); HEMOGLOBIN 9.1 g/dL (12.0-15.5); MEAN CORPUSCULAR HGB CONC 33.3 g/dL (32.0-36.0); MEAN CORPUSCULAR VOLUME 72 fl (80-97); PLATELET COUNT 140 10^3/uL (150-450); RED BLOOD COUNT 3.77 10^6/uL (3.72-5.28); RED CELL DISTRIBUTION WIDTH 19.8 % (11.5-14.0); WHITE BLOOD COUNT 11.5 10^3/uL (4.0-10.5)
[2020-05-07 09:13] LABS: ALBUMIN 2.3 g/dL (3.5-5.0); ALKALINE PHOSPHATASE 329 U/L (38-126); ANION GAP 11 (5-19); ASPARTATE AMINO TRANSFERASE 70 U/L (14-36); BILIRUBIN,DIRECT 0.8 mg/dL (0.0-0.4); BILIRUBIN,TOTAL 1.1 mg/dL (0.2-1.3); BLOOD UREA NITROGEN 61 mg/dL (7-20); CALCIUM 8.7 mg/dL (8.4-10.2); CARBON DIOXIDE 19 mmol/L (22-30); CHLORIDE 107 mmol/L (98-107); GLUCOSE 215 mg/dL (75-110); POTASSIUM 3.7 mmol/L (3.6-5.0); TOTAL PROTEIN 5.1 g/dL (6.3-8.2)
--- NOTE | 2020-05-07 09:19 | PDOC PROGRESS REPORT ---
Subjective Progress Note for:: 05/07/20 Subjective:: 59 year old female past medical history of diabetes, GERD, hypercholesterolemia, hypothyroidism, CAD s/p stent placement times 2 years, hypertension, who was recently diagnosed with metastatic pancreatic cancer and currently undergoing chemotherapy on Gemzar and Abraxate by Dr. Ramos as outpatient, since being started on chemotherapy patient developed severe stomatitis and cannot take any oral intake, she has also developed epigastric abdominal pain with nonbloody diarrhea of several episodes daily. In ED she was noted to be very hypotensive and was started on fluid resuscitation and hospital was consulted for admission. Patient denies any fever, chills, shortness of breath, chest pain, joint pain, headache, syncope or presyncope. 05/05- The patient is in obvious discomfort. Things burn when she tries to swallow them. She still has white patches on her tongue and the oral cavity. 05/05-I was called urgently to the patient's room. She has had a significant increase in difficulty breathing and now requires 4 L of oxygen. 05/06/2020-patient is on dopamine drip and on 5 L of oxygen supplementation. Patient is complaining of shortness of breath. She is telling me she has been through a lot last night and thinking about making arrangements for living well, healthcare power of assistant county attorney, CODE STATUS. Requested for hospital straightener and aligner communication. Overall prognosis is poor. Patient has a rectal tube and Orozco's catheter at this time. Patient expressed a desire of not going through further chemotherapy. 05/07/2020-patient condition is the same in the last 24 hours no improvement. Still on dopamine drip blood pressure is 100/42. Receiving as needed Lasix for pulmonary congestion. Wants to be a DNR/DNI. Patient reiterated today that she does not want to go through further chemotherapy at this time. Overall prognosis poor condition is critical. Continue to have foul-smelling loose stools and has a rectal tube. To send for C. difficile and Dr. Starr recommended increasing frequency of Imodium and Lomotil. Reason For Visit: YESSENIA,DEHYDRATION Physical Exam Vital Signs: Temp Pulse Resp BP Pulse Ox 97.9 F 78 18 105/55 L 99 05/07/20 04:39 05/07/20 07:00 05/07/20 04:39 05/07/20 07:00 05/07/20 04:39 Intake & Output 05/06/20 05/07/20 05/08/20 06:59 06:59 06:59 Intake Total 735 2242 Output Total 1700 4350 Balance -965 -658 Weight 88 kg 86.2 kg General appearance: PRESENT: cooperative, mild distress, well-developed Head exam: PRESENT: atraumatic Eye exam: PRESENT: PERRLA Mouth exam: PRESENT: moist, tongue midline Teeth exam: PRESENT: poor dentation Neck exam: ABSENT: carotid bruit, JVD, lymphadenopathy, thyromegaly Respiratory exam: PRESENT: crackles, decreased breath sounds Cardiovascular exam: PRESENT: tachycardia GI/Abdominal exam: PRESENT: normal bowel sounds, soft. ABSENT: distended, guarding, mass, organolmegaly, rebound, tenderness Rectal exam: PRESENT: other - Patient has a rectal tube. Gentrourinary exam: PRESENT: indwelling catheter Neurological exam: PRESENT: alert, awake, oriented to person, oriented to place, oriented to time, oriented to situation, CN II-XII grossly intact. ABSENT: motor sensory deficit Psychiatric exam: PRESENT: anxious Results Laboratory Results: 05/07/20 08:22 05/06/20 05/07/20 08:01 08:22 WBC 10.1 D 11.5 H RBC 3.96 3.77 Hgb 9.4 L 9.1 L Hct 29.0 L 27.3 L MCV 73 L 72 L MCH 23.7 L 24.0 L MCHC 32.4 33.3 RDW 19.7 H 19.8 H Plt Count 140 L 140 L Seg Neutrophils % Not Reportable Not Reportable 05/04/20 05/04/20 15:28 15:28 Troponin I < 0.012 NT-Pro-B Natriuret Pep 8850 H Impressions: Abdomen/Pelvis CT 05/04/20 16:25 IMPRESSION: 1. Multiple innumerable pulmonary nodules in the visualized lungs. Considerations for these findings include metastatic disease in view of the patient's given history. Very small right pleural effusion. 2. Hepatomegaly and splenomegaly. There are multiple various sized hypoattenuated hepatic lesions probably represent metastatic disease. The possibility of splenic lesions not entirely excluded. 3. Large soft tissue mass in the head of the pancreas which extends into the luz hepatis and portacaval regions probably consistent with the patient's k nown history of pancreatic neoplasm with associated lymphadenopathy. Intrahepatic biliary dilatation is suggested with soft tissue density within the vessels may represent tumor thrombus. 4. Prominent retroperitoneal lymphadenopathy. 5. The patient's hardware obscures detail somewhat in the abdomen and pelvic region. 6. Ill-defined soft tissue mass in the anterior subcutaneous tissues of the l ower abdomen. If surgery has been performed, this may be on a postsurgical basis, if no history of surgery, considerations for this finding includes metastatic disease. 7. Additional findings as above. Chest X-Ray 05/05/20 00:00 IMPRESSION: No interval change when compared to yesterday. Assessment and Plan - Diagnosis (1) Acute respiratory failure with hypoxia Is this a current diagnosis for this admission?: Yes Plan: Her oxygen saturations dropped below 80%. This is most likely due to volume repletion for her dehydration and kidney failure. Unfortunately her renal function is still quite poor however we will need to hold the IV fluids and administer Lasix to try and diurese her. Her oxygen demands increase steadily. She is now on 100% nonrebreather mask oxygen supplementation. She still appears to exhibit increased work of breathing. 05/06/20-pulse ox in the upper 90s on 5 L of oxygen. Receiving IV diuretics. She is also on a dopamine drip to maintain the blood pressure. Overall prognosis poor condition is critical. Chest x-ray done yesterday compared to previous x-rays no change. 05/07/2020-pulse ox today is 99% on 5 L. On examination chest bilateral entry was decreased few crackles at the bases. Not on IV fluids receiving IV dopamine (2) Adenocarcinoma of pancreas, stage 4 Is this a current diagnosis for this admission?: Yes Plan: Diffusely metastatic disease with extremely poor prognosis especially since the patient did not tolerate the first round of chemotherapy. 05/06/2020-patient has advanced adenocarcinoma of the pancreas stage IV due to 1 round of chemotherapy unable to tolerate patient does not want to go through further chemotherapy at this time. 05/07/2020-patient has advanced adenocarcinoma of the is a stage IV. Patient does not want any further chemotherapy at this time. Dr. Ramos is on board. (3) Hypotension Qualifiers: Hypotension type: orthostatic hypotension Qualified Code(s): I95.1 - Orthostatic hypotension Is this a current diagnosis for this admission?: Yes Plan: After the administration of furosemide her systolic blood pressure jumped into the 80s. I gave her 1 L bolus of saline and started a dopamine infusion at 5 mcg/kg/min. 05/06/2020-patient is hypotensive with a blood pressure of 104/54. She is on 10 mics of dopamine drip at this time. 820-patient is still hypotensive on dopamine drip. (4) Stomatitis and mucositis Is this a current diagnosis for this admission?: Yes Plan: From recent chemotherapy. Supportive care and topical treatment. 05/06/2020-patient does not want to be on tablets Carafate plan is to change to liquid Carafate from today. (5) YESSENIA (acute kidney injury) Is this a current diagnosis for this admission?: Yes Plan: Likely secondary to volume loss. Currently receiving IV fluids. Will monitor renal function and try to avoid nephrotoxic medications or adjust her doses accordingly. 05/06/2020-serum creatinine on admission is 3.36 improved to 2.11. Acute on chronic kidney injury is improving at this time. 05/07/2020-today's creatinine is pending. Urinary output is good. (6) Diarrhea Qualifiers: Diarrhea type: unspecified type Qualified Code(s): R19.7 - Diarrhea, unspecified Is this a current diagnosis for this admission?: Yes Plan: A fecal collection system has been put in place 05/06/2020-patient has rectal tube persistent diarrhea may be secondary to chemotherapy. 05/07/2020-patient still have the rectal tube and watery diarrhea foul-smelling diarrhea can be seen. To check for the C. difficile at this time. - Time Anticipated Discharge Disposition: Home with Home Health Anticipated Discharge Timeframe: within 72 hours
[2020-05-07] MEDS: GABAPENTIN 300 MG CAPSULE PO SCH (09:26)
[2020-05-07] MEDS: COLCHICINE 0.6 MG TABLET PO SCH (09:26)
[2020-05-07] MEDS: BACLOFEN 10 MG TABLET PO SCH (09:27)
[2020-05-07] MEDS: NYSTATIN/DEXAMETH/DIPHEN SUSP 120 ML PO SCH ×4 (09:27→21:29)
[2020-05-07] MEDS: CLOPIDOGREL BISULFATE 75 MG TABLET PO SCH (09:27)
[2020-05-07] MEDS: TIZANIDINE HCL 4 MG TABLET PO SCH (09:27)
[2020-05-07] MEDS: FLUTICASONE NASAL SPRAY 50 MCG/SPRY 120 SPRAY/16 GM NASL SCH ×2 (09:28→18:56)
[2020-05-07] MEDS: MULTIVITS W-MIN/IRON SOLN 60 ML PO SCH ×2 (09:29→13:14)
[2020-05-07] MEDS: HYOSCYAMINE SULFATE 0.125 MG TABLET PO PRN ×2 (09:30→13:13)
[2020-05-07 09:32] LABS: ABSOLUTE LYMPHOCYTES# (MANUAL) 1.5 10^3/uL (0.5-4.7); ABSOLUTE MONOCYTES # (MANUAL) 0.6 10^3/uL (0.1-1.4); BASOPHILS % (MANUAL) 0 % (0-2); EOSINOPHILS % (MANUAL) 0 % (0-6); LYMPHOCYTES % (MANUAL) 13 % (13-45); MONOCYTES % (MANUAL) 5 % (3-13); SEGMENTED NEUTROPHILS % (MAN) 82 % (42-78); TOTAL CELLS COUNTED 100
[2020-05-07 09:33] LABS: ANISOCYTOSIS 1+; OVALOCYTES SLIGHT; POLYCHROMASIA 1+; TEAR DROP CELLS SLIGHT
[2020-05-07 09:34] LABS: BURR CELLS SLIGHT; PLATELET COMMENT DECREASED; POIKILOCYTOSIS 1+; SCHISTOCYTES SLIGHT
[2020-05-07] MEDS: SUCRALFATE 1 GM TABLET PO SCH ×3 (13:13→21:31)
[2020-05-07] MEDS: OXYCODONE-ACETAMINOPHEN 5-325 MG TABLET PO PRN (14:42)
[2020-05-07 20:13] LABS: C DIFFICILE GDH NEGATIVE (NEGATIVE)
[2020-05-07] MEDS: FAMOTIDINE INJ/PF 20 MG/2 ML SDV IV SCH (21:29)
[2020-05-07] MEDS: TEMAZEPAM 7.5 MG CAPSULE PO SCH (21:31)
[2020-05-07] MEDS: MELATONIN 5 MG TABLET PO SCH (21:31)
[2020-05-08] MEDS: LOPERAMIDE HCL 2 MG CAPSULE PO SCH ×4 (01:16→17:18)
[2020-05-08] MEDS: PANTOPRAZOLE SODIUM 40 MG TABLET.DR PO SCH ×2 (05:22→17:18)
[2020-05-08] MEDS: LEVOTHYROXINE SODIUM 0.15 MG TABLET PO SCH (05:22)
[2020-05-08 06:43] LABS: HEMATOCRIT 27.4 % (36.0-47.0); HEMOGLOBIN 8.9 g/dL (12.0-15.5); MEAN CORPUSCULAR HEMOGLOBIN 23.6 pg (27.0-33.4); MEAN CORPUSCULAR HGB CONC 32.4 g/dL (32.0-36.0); MEAN CORPUSCULAR VOLUME 73 fl (80-97); PLATELET COUNT 148 10^3/uL (150-450); RED BLOOD COUNT 3.76 10^6/uL (3.72-5.28); RED CELL DISTRIBUTION WIDTH 19.4 % (11.5-14.0); WHITE BLOOD COUNT 13.9 10^3/uL (4.0-10.5)
[2020-05-08 07:00] LABS: ALBUMIN 2.2 g/dL (3.5-5.0); ALKALINE PHOSPHATASE 304 U/L (38-126); ANION GAP 8 (5-19); ASPARTATE AMINO TRANSFERASE 65 U/L (14-36); BILIRUBIN,DIRECT 0.8 mg/dL (0.0-0.4); BLOOD UREA NITROGEN 57 mg/dL (7-20); CALCIUM 8.6 mg/dL (8.4-10.2); CARBON DIOXIDE 20 mmol/L (22-30); CHLORIDE 106 mmol/L (98-107); GLUCOSE 184 mg/dL (75-110)
[2020-05-08 07:58] LABS: ABSOLUTE LYMPHOCYTES# (MANUAL) 0.4 10^3/uL (0.5-4.7); ABSOLUTE MONOCYTES # (MANUAL) 0.4 10^3/uL (0.1-1.4); BASOPHILS % (MANUAL) 0 % (0-2); EOSINOPHILS % (MANUAL) 1 % (0-6); LYMPHOCYTES % (MANUAL) 3 % (13-45); MONOCYTES % (MANUAL) 3 % (3-13); NUCLEATED RED BLOOD CELLS 2 /100 WBC (0); SEGMENTED NEUTROPHILS % (MAN) 93 % (42-78); TOTAL CELLS COUNTED 100
[2020-05-08 07:59] LABS: ANISOCYTOSIS 2+; HYPOCHROMASIA SLIGHT; OVALOCYTES 2+; PLATELET COMMENT DECREASED; TEAR DROP CELLS SLIGHT
--- NOTE | 2020-05-08 08:41 | PDOC PROGRESS REPORT ---
Subjective Progress Note for:: 05/08/20 Subjective:: 59 year old female past medical history of diabetes, GERD, hypercholesterolemia, hypothyroidism, CAD s/p stent placement times 2 years, hypertension, who was recently diagnosed with metastatic pancreatic cancer and currently undergoing chemotherapy on Gemzar and Abraxate by Dr. Ramos as outpatient, since being started on chemotherapy patient developed severe stomatitis and cannot take any oral intake, she has also developed epigastric abdominal pain with nonbloody diarrhea of several episodes daily. In ED she was noted to be very hypotensive and was started on fluid resuscitation and hospital was consulted for admission. Patient denies any fever, chills, shortness of breath, chest pain, joint pain, headache, syncope or presyncope. 05/05- The patient is in obvious discomfort. Things burn when she tries to swallow them. She still has white patches on her tongue and the oral cavity. 05/05-I was called urgently to the patient's room. She has had a significant increase in difficulty breathing and now requires 4 L of oxygen. 05/06/2020-patient is on dopamine drip and on 5 L of oxygen supplementation. Patient is complaining of shortness of breath. She is telling me she has been through a lot last night and thinking about making arrangements for living well, healthcare power of trade mark attorney, CODE STATUS. Requested for hospital cocoa bean roaster communication. Overall prognosis is poor. Patient has a rectal tube and Orozco's catheter at this time. Patient expressed a desire of not going through further chemotherapy. 05/07/2020-patient condition is the same in the last 24 hours no improvement. Still on dopamine drip blood pressure is 100/42. Receiving as needed Lasix for pulmonary congestion. Wants to be a DNR/DNI. Patient reiterated today that she does not want to go through further chemotherapy at this time. Overall prognosis poor condition is critical. Continue to have foul-smelling loose stools and has a rectal tube. To send for C. difficile and Dr. Starr recommended increasing frequency of Imodium and Lomotil. 05/08/2020-no acute events in last 24 hours. Afebrile. Still on dopamine drip at 10 blood pressure is 105/50. Echocardiogram is pending at this time. CODE STATUS is DNR/DNI. Patient is stating that she does not want further chemotherapy. Reason For Visit: YESSENIA,DEHYDRATION Physical Exam Vital Signs: Temp Pulse Resp BP Pulse Ox 98.0 F 70 20 105/50 L 99 05/08/20 04:05 05/08/20 07:00 05/08/20 04:05 05/08/20 07:00 05/08/20 04:05 Intake & Output 05/07/20 05/08/20 05/09/20 06:59 06:59 06:59 Intake Total 2242 1444 Output Total 3050 1000 Balance -808 444 Weight 86.2 kg 84.8 kg General appearance: PRESENT: cooperative, mild distress, well-developed Head exam: PRESENT: atraumatic Eye exam: PRESENT: conjunctiva pale, PERRLA Mouth exam: PRESENT: neck supple Teeth exam: PRESENT: poor dentation Neck exam: ABSENT: carotid bruit, JVD, lymphadenopathy, thyromegaly Respiratory exam: PRESENT: decreased breath sounds Cardiovascular exam: PRESENT: RRR. ABSENT: diastolic murmur, rubs, systolic murmur GI/Abdominal exam: PRESENT: normal bowel sounds, soft, other - Rectal tube in place.. ABSENT: distended, guarding, mass, organolmegaly, rebound, tenderness Rectal exam: PRESENT: other - Rectal tube in place. Gentrourinary exam: PRESENT: indwelling catheter Extremities exam: PRESENT: +1 edema Neurological exam: PRESENT: alert, awake, oriented to person, oriented to place, oriented to time, oriented to situation, CN II-XII grossly intact. ABSENT: motor sensory deficit Results Laboratory Results: 05/08/20 06:20 05/08/20 06:20 05/07/20 05/07/20 05/08/20 08:22 08:22 06:20 WBC 11.5 H 13.9 H RBC 3.77 3.76 Hgb 9.1 L 8.9 L Hct 27.3 L 27.4 L MCV 72 L 73 L MCH 24.0 L 23.6 L MCHC 33.3 32.4 RDW 19.8 H 19.4 H Plt Count 140 L 148 L Seg Neutrophils % Not Reportable Not Reportable Sodium 136.8 L Potassium 3.7 Chloride 107 Carbon Dioxide 19 L Anion Gap 11 BUN 61 H Creatinine 1.50 H Est GFR ( Amer) 43 L Glucose 215 H Calcium 8.7 Magnesium 1.7 Total Bilirubin 1.1 AST 70 H Alkaline Phosphatase 329 H Total Protein 5.1 L Albumin 2.3 L 05/08/20 06:20 WBC RBC Hgb Hct MCV MCH MCHC RDW Plt Count Seg Neutrophils % Sodium 133.6 L Potassium 4.0 Chloride 106 Carbon Dioxide 20 L Anion Gap 8 BUN 57 H Creatinine 1.50 H Est GFR ( Amer) 43 L Glucose 184 H Calcium 8.6 Magnesium 1.7 Total Bilirubin 1.0 AST 65 H Alkaline Phosphatase 304 H Total Protein 5.0 L Albumin 2.2 L 05/05/20 01:11 Stool - Stool - Final 05/04/20 05/04/20 15:28 15:28 Troponin I < 0.012 NT-Pro-B Natriuret Pep 8850 H Impressions: Abdomen/Pelvis CT 05/04/20 16:25 IMPRESSION: 1. Multiple innumerable pulmonary nodules in the visualized lungs. Considerations for these findings include metastatic disease in view of the patient's given history. Very small right pleural effusion. 2. Hepatomegaly and splenomegaly. There are multiple various sized hypoattenuated hepatic lesions probably represent metastatic disease. The possibility of splenic lesions not entirely excluded. 3. Large soft tissue mass in the head of the pancreas which extends into the luz hepatis and portacaval regions probably consistent with the patient's known history of pancreatic neoplasm with associated lymphadenopathy. Intrahepatic biliary dilatation is suggested with soft tissue density within the vessels may represent tumor thrombus. 4. Prominent retroperitoneal lymphadenopathy. 5. The patient's hardware obscures detail somewhat in the abdomen and pelvic region. 6. Ill-defined soft tissue mass in the anterior subcutaneous tissues of the lower abdomen. If surgery has been performed, this may be on a postsurgical basis, if no history of surgery, considerations for this finding includes metastatic disease. 7. Additional findings as above. Chest X-Ray 05/05/20 00:00 IMPRESSION: No interval change when compared to yesterday. Assessment and Plan - Diagnosis (1) Acute respiratory failure with hypoxia Is this a current diagnosis for this admission?: Yes Plan: Her oxygen saturations dropped below 80%. This is most likely due to volume repletion for her dehydration and kidney failure. Unfortunately her renal function is still quite poor however we will need to hold the IV fluids and administer Lasix to try and diurese her. Her oxygen demands increase steadily. She is now on 100% nonrebreather mask oxygen supplementation. She still appears to exhibit increased work of breathing. 05/06/20-pulse ox in the upper 90s on 5 L of oxygen. Receiving IV diuretics. She is also on a dopamine drip to maintain the blood pressure. Overall prognosis poor condition is critical. Chest x-ray done yesterday compared to previous x-rays no change. 05/07/2020-pulse ox today is 99% on 5 L. On examination chest bilateral entry was decreased few crackles at the bases. Not on IV fluids receiving IV dopamine 05/08/2020-pulse ox is 99% on 5 L this morning. Not on IV fluids for blood pressure support, she is receiving IV dopamine. (2) Adenocarcinoma of pancreas, stage 4 Is this a current diagnosis for this admission?: Yes Plan: Diffusely metastatic disease with extremely poor prognosis especially since the patient did not tolerate the first round of chemotherapy. 05/06/2020-patient has advanced adenocarcinoma of the pancreas stage IV due to 1 round of chemotherapy unable to tolerate patient does not want to go through further chemotherapy at this time. 05/07/2020-patient has advanced adenocarcinoma of thepancrea stage IV. Patient does not want any further chemotherapy at this time. Dr. Ramos is on board. 05/08/20-patient has advanced adenocarcinoma of grade stage IV, unable to tolerate the chemotherapy. (3) Hypotension Qualifiers: Hypotension type: orthostatic hypotension Qualified Code(s): I95.1 - Orthostatic hypotension Is this a current diagnosis for this admission?: Yes Plan: After the administration of furosemide her systolic blood pressure jumped into the 80s. I gave her 1 L bolus of saline and started a dopamine infusion at 5 mcg/kg/min. 05/06/2020-patient is hypotensive with a blood pressure of 104/54. She is on 10 mics of dopamine drip at this time. 05/07-patient is still hypotensive on dopamine drip. 05/08/2020-blood pressure is 105/50 on dopamine drip at this time. (4) Stomatitis and mucositis Is this a current diagnosis for this admission?: Yes Plan: From recent chemotherapy. Supportive care and topical treatment. 05/06/2020-patient does not want to be on tablets Carafate plan is to change to liquid Carafate from today. (5) YESSENIA (acute kidney injury) Is this a current diagnosis for this admission?: Yes Plan: Likely secondary to volume loss. Currently receiving IV fluids. Will monitor renal function and try to avoid nephrotoxic medications or adjust her doses accordingly. 05/06/2020-serum creatinine on admission is 3.36 improved to 2.11. Acute on chronic kidney injury is improving at this time. 05/07/2020-today's creatinine is pending. Urinary output is good. 05/08/2020-latest creatinine is 1.5 on admission creatinine is 3.36. Acute kidney injury is resolving. (6) Diarrhea Qualifiers: Diarrhea type: unspecified type Qualified Code(s): R19.7 - Diarrhea, unspecified Is this a current diagnosis for this admission?: Yes Plan: A fecal collection system has been put in place 05/06/2020-patient has rectal tube persistent diarrhea may be secondary to chemotherapy. 05/07/2020-patient still have the rectal tube and watery diarrhea foul-smelling diarrhea can be seen. To check for the C. difficile at this time. 05/08/2020-C. difficile is negative. Patient continued to have diarrhea. It may be secondary to chemotherapy patient received. - Time Anticipated Discharge Disposition: Home with Hospice Anticipated Discharge Timeframe: within 72 hours
[2020-05-08] MEDS: SUCRALFATE 1 GM TABLET PO SCH ×4 (08:47→22:12)
[2020-05-08] MEDS: TIZANIDINE HCL 4 MG TABLET PO SCH (10:35)
[2020-05-08] MEDS: CLOPIDOGREL BISULFATE 75 MG TABLET PO SCH (10:35)
[2020-05-08] MEDS: NYSTATIN/DEXAMETH/DIPHEN SUSP 120 ML PO SCH ×4 (10:35→22:12)
[2020-05-08] MEDS: COLCHICINE 0.6 MG TABLET PO SCH (10:35)
[2020-05-08] MEDS: BACLOFEN 10 MG TABLET PO SCH (10:35)
[2020-05-08] MEDS: GABAPENTIN 300 MG CAPSULE PO SCH (10:35)
[2020-05-08] MEDS: FLUTICASONE NASAL SPRAY 50 MCG/SPRY 120 SPRAY/16 GM NASL SCH ×2 (10:36→17:18)
[2020-05-08] MEDS: MULTIVITS W-MIN/IRON SOLN 60 ML PO SCH (10:42)
--- NOTE | 2020-05-08 11:10 | PDOC PROGRESS REPORT ---
Subjective Progress Note for:: 05/08/20 Subjective:: No acute events overnight but patient still feels pretty crappy today. Reason For Visit: YESSENIA,DEHYDRATION Physical Exam Vital Signs: Temp Pulse Resp BP Pulse Ox 98.0 F 79 20 97/50 L 99 05/08/20 04:05 05/08/20 08:00 05/08/20 04:05 05/08/20 08:00 05/08/20 04:05 Intake & Output 05/07/20 05/08/20 05/09/20 06:59 06:59 06:59 Intake Total 2242 1444 Output Total 3050 1000 Balance -808 444 Weight 86.2 kg 84.8 kg 84.4 kg General appearance: PRESENT: no acute distress, well-developed, well-nourished Head exam: PRESENT: atraumatic, normocephalic Eye exam: PRESENT: conjunctiva pink, EOMI, PERRLA. ABSENT: scleral icterus Ear exam: PRESENT: normal external ear exam Mouth exam: PRESENT: moist, tongue midline Neck exam: ABSENT: carotid bruit, JVD, lymphadenopathy, thyromegaly Respiratory exam: PRESENT: clear to auscultation yadi. ABSENT: rales, rhonchi, wheezes Cardiovascular exam: PRESENT: RRR. ABSENT: diastolic murmur, rubs, systolic murmur Pulses: PRESENT: normal dorsalis pedis pul Vascular exam: PRESENT: normal capillary refill GI/Abdominal exam: PRESENT: normal bowel sounds, soft. ABSENT: distended, guarding, mass, organolmegaly, rebound, tenderness Rectal exam: PRESENT: deferred Extremities exam: PRESENT: full ROM. ABSENT: calf tenderness, clubbing, pedal edema Neurological exam: PRESENT: alert, awake, oriented to person, oriented to place, oriented to time, oriented to situation, CN II-XII grossly intact. ABSENT: motor sensory deficit Psychiatric exam: PRESENT: appropriate affect, normal mood. ABSENT: homicidal ideation, suicidal ideation Skin exam: PRESENT: dry, intact, warm. ABSENT: cyanosis, rash Results Laboratory Results: 05/08/20 06:20 05/08/20 06:20 05/08/20 05/08/20 06:20 06:20 WBC 13.9 H RBC 3.76 Hgb 8.9 L Hct 27.4 L MCV 73 L MCH 23.6 L MCHC 32.4 RDW 19.4 H Plt Count 148 L Seg Neutrophils % Not Reportable Sodium 133.6 L Potassium 4.0 Chloride 106 Carbon Dioxide 20 L Anion Gap 8 BUN 57 H Creatinine 1.50 H Est GFR ( Amer) 43 L Glucose 184 H Calcium 8.6 Magnesium 1.7 Total Bilirubin 1.0 AST 65 H Alkaline Phosphatase 304 H Total Protein 5.0 L Albumin 2.2 L 05/05/20 01:11 Stool - Stool - Final 05/04/20 05/04/20 15:28 15:28 Troponin I < 0.012 NT-Pro-B Natriuret Pep 8850 H Impressions: Abdomen/Pelvis CT 05/04/20 16:25 IMPRESSION: 1. Multiple innumerable pulmonary nodules in the visualized lungs. Considerations for these findings include metastatic disease in view of the patient's given history. Very small right pleural effusion. 2. Hepatomegaly and splenomegaly. There are multiple various sized hypoattenuated hepatic lesions probably represent metastatic disease. The possibility of splenic lesions not entirely excluded. 3. Large soft tissue mass in the head of the pancreas which extends into the luz hepatis and portacaval regions probably consistent with the patient's known history of pancreatic neoplasm with associated lymphadenopathy. Intrahepatic biliary dilatation is suggested with soft tissue density within the vessels may represent tumor thrombus. 4. Prominent retroperitoneal lymphadenopathy. 5. The patient's hardware obscures detail somewhat in the abdomen and pelvic region. 6. Ill-defined soft tissue mass in the anterior subcutaneous tissues of the lower abdomen. If surgery has been performed, this may be on a postsurgical basis, if no history of surgery, considerations for this finding includes metastatic disease. 7. Additional findings as above. Chest X-Ray 05/05/20 00:00 IMPRESSION: No interval change when compared to yesterday. Assessment & Plan - Diagnosis (1) Dehydration Is this a current diagnosis for this admission?: Yes Plan: Continue supportive care (2) Hypotension Qualifiers: Hypotension type: orthostatic hypotension Qualified Code(s): I95.1 - Orthostatic hypotension Is this a current diagnosis for this admission?: Yes Plan: Secondary to dehydration continue supportive care (3) Adenocarcinoma of pancreas, stage 4 Is this a current diagnosis for this admission?: Yes Plan: Status post cycle #1, hopefully will get further treatment (4) Stomatitis and mucositis Is this a current diagnosis for this admission?: Yes Plan: Continue supportive care with [employer] mouthwash - Time Time Spent with patient: 15-24 minutes
[2020-05-08] MEDS: DOPAMINE HCL/DEXTROSE 5%-WATER 800 MG/250 ML RTUINJ IV PRN (12:49)
[2020-05-08] MEDS: TEMAZEPAM 7.5 MG CAPSULE PO SCH (22:13)
[2020-05-08] MEDS: FAMOTIDINE INJ/PF 20 MG/2 ML SDV IV SCH (22:13)
[2020-05-08] MEDS: MELATONIN 5 MG TABLET PO SCH (22:13)
[2020-05-09] MEDS: LOPERAMIDE HCL 2 MG CAPSULE PO SCH ×5 (00:28→23:09)
[2020-05-09] MEDS: DOPAMINE HCL/DEXTROSE 5%-WATER 800 MG/250 ML RTUINJ IV PRN ×2 (03:10→17:37)
[2020-05-09] MEDS: PANTOPRAZOLE SODIUM 40 MG TABLET.DR PO SCH ×2 (06:00→17:29)
[2020-05-09] MEDS: LEVOTHYROXINE SODIUM 0.15 MG TABLET PO SCH (06:00)
[2020-05-09] MEDS: SUCRALFATE 1 GM TABLET PO SCH ×4 (07:59→21:53)
--- NOTE | 2020-05-09 09:52 | PDOC PROGRESS REPORT ---
Subjective Progress Note for:: 05/09/20 Subjective:: 59 year old female past medical history of diabetes, GERD, hypercholesterolemia, hypothyroidism, CAD s/p stent placement times 2 years, hypertension, who was recently diagnosed with metastatic pancreatic cancer and currently undergoing chemotherapy on Gemzar and Abraxate by Dr. Ramos as outpatient, since being started on chemotherapy patient developed severe stomatitis and cannot take any oral intake, she has also developed epigastric abdominal pain with nonbloody diarrhea of several episodes daily. In ED she was noted to be very hypotensive and was started on fluid resuscitation and hospital was consulted for admission. Patient denies any fever, chills, shortness of breath, chest pain, joint pain, headache, syncope or presyncope. 05/05- The patient is in obvious discomfort. Things burn when she tries to swallow them. She still has white patches on her tongue and the oral cavity. 05/05-I was called urgently to the patient's room. She has had a significant increase in difficulty breathing and now requires 4 L of oxygen. 05/06/2020-patient is on dopamine drip and on 5 L of oxygen supplementation. Patient is complaining of shortness of breath. She is telling me she has been through a lot last night and thinking about making arrangements for living well, healthcare power of solar sales manager, CODE STATUS. Requested for hospital blog writer communication. Overall prognosis is poor. Patient has a rectal tube and Orozco's catheter at this time. Patient expressed a desire of not going through further chemotherapy. 05/07/2020-patient condition is the same in the last 24 hours no improvement. Still on dopamine drip blood pressure is 100/42. Receiving as needed Lasix for pulmonary congestion. Wants to be a DNR/DNI. Patient reiterated today that she does not want to go through further chemotherapy at this time. Overall prognosis poor condition is critical. Continue to have foul-smelling loose stools and has a rectal tube. To send for C. difficile and Dr. Starr recommended increasing frequency of Imodium and Lomotil. 05/08/2020-no acute events in last 24 hours. Afebrile. Still on dopamine drip at 10 blood pressure is 105/50. Echocardiogram is pending at this time. CODE STATUS is DNR/DNI. Patient is stating that she does not want further chemotherapy. 05/09/2020-no acute events in the last 24 hours. Afebrile. Blood pressure is sl ightly improved is 118/60. To continue dopamine drip at this time. Echocardiogram unofficial report indicates normal EF. Patient still has a loose stools and has a rectal tube present. Reason For Visit: YESSENIA,DEHYDRATION Physical Exam Vital Signs: Temp Pulse Resp BP Pulse Ox 97.3 F 69 16 151/96 H 100 05/09/20 09:06 05/09/20 08:19 05/09/20 08:19 05/09/20 08:19 05/09/20 08:19 Intake & Output 05/08/20 05/09/20 05/10/20 06:59 06:59 06:59 Intake Total 1444 1730 Output Total 1000 1225 Balance 444 505 Weight 84.8 kg 90.7 kg General appearance: PRESENT: no acute distress, cooperative, obese Head exam: PRESENT: atraumatic Eye exam: PRESENT: conjunctiva pale, PERRLA Mouth exam: PRESENT: moist, tongue midline Teeth exam: PRESENT: poor dentation Neck exam: ABSENT: carotid bruit, JVD, lymphadenopathy, thyromegaly Respiratory exam: PRESENT: decreased breath sounds Cardiovascular exam: PRESENT: tachycardia GI/Abdominal exam: PRESENT: normal bowel sounds, soft. ABSENT: distended, guarding, mass, organolmegaly, rebound, tenderness Rectal exam: PRESENT: other - Rectal tube in place. Gentrourinary exam: PRESENT: indwelling catheter Neurological exam: PRESENT: alert, awake, oriented to person, oriented to place, oriented to time, oriented to situation, CN II-XII grossly intact. ABSENT: motor sensory deficit Psychiatric exam: PRESENT: appropriate affect, normal mood. ABSENT: homicidal ideation, suicidal ideation Results Laboratory Results: 05/08/20 06:20 05/08/20 06:20 05/05/20 01:11 Stool - Stool - Final 05/05/20 01:11 Stool - Stool Stool Culture - Final NO SALMONELLA, SHIGELLA, CAMPYLOBACTER, OR E.COLI 0157 RECOVERED. NEGATIVE FOR SHIGA TOXINS 1&2. 05/04/20 05/04/20 15:28 15:28 Troponin I < 0.012 NT-Pro-B Natriuret Pep 8850 H Impressions: Abdomen/Pelvis CT 05/04/20 16:25 IMPRESSION: 1. Multiple innumerable pulmonary nodules in the visualized lungs. Considerations for these findings include metastatic disease in view of the patient's given history. Very small right pleural effusion. 2. Hepatomegaly and splenomegaly. There are multiple various sized hypoattenuated hepatic lesions probably represent metastatic disease. The possibility of splenic lesions not entirely excluded. 3. Large soft tissue mass in the head of the pancreas which extends into the luz hepatis and portacaval regions probably consistent with the patient's known history of pancreatic neoplasm with associated lymphadenopathy. Intrahepatic biliary dilatation is suggested with soft tissue density within the vessels may represent tumor thrombus. 4. Prominent retroperitoneal lymphadenopathy. 5. The patient's hardware obscures detail somewhat in the abdomen and pelvic region. 6. Ill-defined soft tissue mass in the anterior subcutaneous tissues of the lower abdomen. If surgery has been performed, this may be on a postsurgical basis, if no history of surgery, considerations for this finding includes metastatic disease. 7. Additional findings as above. Chest X-Ray 05/05/20 00:00 IMPRESSION: No interval change when compared to yesterday. Assessment and Plan - Diagnosis (1) Acute respiratory failure with hypoxia Is this a current diagnosis for this admission?: Yes Plan: Her oxygen saturations dropped below 80%. This is most likely due to volume repletion for her dehydration and kidney failure. Unfortunately her renal function is still quite poor however we will need to hold the IV fluids and ad boiler room operator Lasix to try and diurese her. Her oxygen demands increase steadily. She is now on 100% nonrebreather mask oxygen supplementation. She still appears to exhibit increased work of breathing. 05/06/20-pulse ox in the upper 90s on 5 L of oxygen. Receiving IV diuretics. She is also on a dopamine drip to maintain the blood pressure. Overall prognosis poor condition is critical. Chest x-ray done yesterday compared to previous x-rays no change. 05/07/2020-pulse ox today is 99% on 5 L. On examination chest bilateral entry was decreased few crackles at the bases. Not on IV fluids receiving IV dopamine 05/08/2020-pulse ox is 99% on 5 L this morning. Not on IV fluids for blood pressure support, she is receiving IV dopamine. 05/09-pulse ox today's 100% 5 L. Comfortably in the bed communicating well. Not in distress. (2) Adenocarcinoma of pancreas, stage 4 Is this a current diagnosis for this admission?: Yes Plan: Diffusely metastatic disease with extremely poor prognosis especially since the patient did not tolerate the first round of chemotherapy. 05/06/2020-patient has advanced adenocarcinoma of the pancreas stage IV due to 1 round of chemotherapy unable to tolerate patient does not want to go through further chemotherapy at this time. 05/07/2020-patient has advanced adenocarcinoma of thepancrea stage IV. Patient does not want any further chemotherapy at this time. Dr. Ramos is on board. 05/08/20-patient has advanced adenocarcinoma of grade stage IV, unable to tolerate the chemotherapy. 05/09/2020-patient has a stage IV advanced pancreatic cancer further management as per oncology team. (3) Hypotension Qualifiers: Hypotension type: orthostatic hypotension Qualified Code(s): I95.1 - Orthostatic hypotension Is this a current diagnosis for this admission?: Yes Plan: After the administration of furosemide her systolic blood pressure jumped into the 80s. I gave her 1 L bolus of saline and started a dopamine infusion at 5 mcg/kg/min. 05/06/2020-patient is hypotensive with a blood pressure of 104/54. She is on 10 mics of dopamine drip at this time. 05/07-patient is still hypotensive on dopamine drip. 05/08/2020-blood pressure is 105/50 on dopamine drip at this time. 05/09/2020-blood pressure today is 118/60. Plan is to continue dopamine drip at this time. (4) Stomatitis and mucositis Is this a current diagnosis for this admission?: Yes Plan: From recent chemotherapy. Supportive care and topical treatment. 05/06/2020-patient does not want to be on tablets Carafate plan is to change to liquid Carafate from today. (5) YESSENIA (acute kidney injury) Is this a current diagnosis for this admission?: Yes Plan: Likely secondary to volume loss. Currently receiving IV fluids. Will monitor renal function and try to avoid nephrotoxic medications or adjust her doses accordingly. 05/06/2020-serum creatinine on admission is 3.36 improved to 2.11. Acute on chronic kidney injury is improving at this time. 05/07/2020-today's creatinine is pending. Urinary output is good. 05/08/2020-latest creatinine is 1.5 on admission creatinine is 3.36. Acute kidney injury is resolving. (6) Diarrhea Qualifiers: Diarrhea type: unspecified type Qualified Code(s): R19.7 - Diarrhea, unspecified Is this a current diagnosis for this admission?: Yes Plan: A fecal collection system has been put in place 05/06/2020-patient has rectal tube persistent diarrhea may be secondary to chemotherapy. 05/07/2020-patient still have the rectal tube and watery diarrhea foul-smelling diarrhea can be seen. To check for the C. difficile at this time. 05/08/2020-C. difficile is negative. Patient continued to have diarrhea. It may be secondary to chemotherapy patient received. 05/09/2020-patient has a rectal tube continue to have a loose stools, C. difficile negative receiving Lomotil and Imodium on alternating basis. - Time Anticipated Discharge Disposition: Home with Hospice Anticipated Discharge Timeframe: within 72 hours
[2020-05-09] MEDS: GABAPENTIN 300 MG CAPSULE PO SCH (10:50)
[2020-05-09] MEDS: FLUTICASONE NASAL SPRAY 50 MCG/SPRY 120 SPRAY/16 GM NASL SCH ×2 (10:50→17:31)
[2020-05-09] MEDS: TIZANIDINE HCL 4 MG TABLET PO SCH (10:50)
[2020-05-09] MEDS: COLCHICINE 0.6 MG TABLET PO SCH (10:50)
[2020-05-09] MEDS: BACLOFEN 10 MG TABLET PO SCH (10:50)
[2020-05-09] MEDS: NYSTATIN/DEXAMETH/DIPHEN SUSP 120 ML PO SCH ×4 (10:50→21:57)
[2020-05-09] MEDS: CLOPIDOGREL BISULFATE 75 MG TABLET PO SCH (10:50)
[2020-05-09] MEDS: MULTIVITS W-MIN/IRON SOLN 60 ML PO SCH (10:51)
[2020-05-09] MEDS: DIPHENOXYLATE HCL/ATROP SULF 2.5-0.025 MG TABLET PO SCH ×3 (13:24→21:53)
[2020-05-09] MEDS: FAMOTIDINE INJ/PF 20 MG/2 ML SDV IV SCH (21:53)
[2020-05-09] MEDS: MELATONIN 5 MG TABLET PO SCH (21:53)
[2020-05-09] MEDS: TEMAZEPAM 7.5 MG CAPSULE PO SCH (21:53)
[2020-05-10] MEDS: PANTOPRAZOLE SODIUM 40 MG TABLET.DR PO SCH ×2 (05:33→17:20)
[2020-05-10] MEDS: LEVOTHYROXINE SODIUM 0.15 MG TABLET PO SCH (05:33)
[2020-05-10] MEDS: LOPERAMIDE HCL 2 MG CAPSULE PO SCH ×4 (05:33→23:35)
[2020-05-10] MEDS: OXYCODONE-ACETAMINOPHEN 5-325 MG TABLET PO PRN ×2 (05:39→23:35)
[2020-05-10] MEDS ORDERED: FUROSEMIDE INJ/PF 40 MG/4 ML SDV IV ONE (08:15)
[2020-05-10 09:09] LABS: HEMATOCRIT 25.4 % (36.0-47.0); HEMOGLOBIN 8.3 g/dL (12.0-15.5); MEAN CORPUSCULAR HEMOGLOBIN 23.5 pg (27.0-33.4); MEAN CORPUSCULAR HGB CONC 32.5 g/dL (32.0-36.0); MEAN CORPUSCULAR VOLUME 72 fl (80-97); RED BLOOD COUNT 3.52 10^6/uL (3.72-5.28); WHITE BLOOD COUNT 12.5 10^3/uL (4.0-10.5)
[2020-05-10 09:17] LABS: ALBUMIN 1.9 g/dL (3.5-5.0); ALKALINE PHOSPHATASE 342 U/L (38-126); ANION GAP 8 (5-19); ASPARTATE AMINO TRANSFERASE 90 U/L (14-36); BILIRUBIN,DIRECT 0.6 mg/dL (0.0-0.4); BILIRUBIN,TOTAL 0.9 mg/dL (0.2-1.3); BLOOD UREA NITROGEN 40 mg/dL (7-20); CALCIUM 8.3 mg/dL (8.4-10.2); CARBON DIOXIDE 18 mmol/L (22-30); CHLORIDE 104 mmol/L (98-107); GLUCOSE 160 mg/dL (75-110); POTASSIUM 3.6 mmol/L (3.6-5.0); TOTAL PROTEIN 4.1 g/dL (6.3-8.2)
--- NOTE | 2020-05-10 09:19 | PDOC PROGRESS REPORT ---
Subjective Progress Note for:: 05/10/20 Subjective:: 59 year old female past medical history of diabetes, GERD, hypercholesterolemia, hypothyroidism, CAD s/p stent placement times 2 years, hypertension, who was recently diagnosed with metastatic pancreatic cancer and currently undergoing chemotherapy on Gemzar and Abraxate by Dr. Ramos as outpatient, since being started on chemotherapy patient developed severe stomatitis and cannot take any oral intake, she has also developed epigastric abdominal pain with nonbloody diarrhea of several episodes daily. In ED she was noted to be very hypotensive and was started on fluid resuscitation and hospital was consulted for admission. Patient denies any fever, chills, shortness of breath, chest pain, joint pain, headache, syncope or presyncope. 05/05- The patient is in obvious discomfort. Things burn when she tries to swallow them. She still has white patches on her tongue and the oral cavity. 05/05-I was called urgently to the patient's room. She has had a significant increase in difficulty breathing and now requires 4 L of oxygen. 05/06/2020-patient is on dopamine drip and on 5 L of oxygen supplementation. Patient is complaining of shortness of breath. She is telling me she has been through a lot last night and thinking about making arrangements for living well, healthcare power of compliance attorney, CODE STATUS. 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 Overall prognosis is poor. Patient has a rectal tube and Orozco's catheter at this time. Patient expressed a desire of not going through further chemotherapy. 05/07/2020-patient condition is the same in the last 24 hours no improvement. Still on dopamine drip blood pressure is 100/42. Receiving as needed Lasix for pulmonary congestion. Wants to be a DNR/DNI. Patient reiterated today that she does not want to go through further chemotherapy at this time. Overall prognosis poor condition is critical. Continue to have foul-smelling loose stools and has a rectal tube. To send for C. difficile and Dr. Starr recommended increasing frequency of Imodium and Lomotil. 05/08/2020-no acute events in last 24 hours. Afebrile. Still on dopamine drip at 10 blood pressure is 105/50. Echocardiogram is pending at this time. CODE STATUS is DNR/DNI. Patient is stating that she does not want further chemotherapy. 05/09/2020-no acute events in the last 24 hours. Afebrile. Blood pressure is slightly improved is 118/60. To continue dopamine drip at this time. Echocardiogram unofficial report indicates normal EF. Patient still has a loose stools and has a rectal tube present. 05/10/2020-no acute events in the last 24 hours. Latest blood pressure is 115/60. Given a Lasix 40 mg IV 1 dose. CODE STATUS is DNR/DNI. Reason For Visit: YESSENIA,DEHYDRATION Physical Exam Vital Signs: Temp Pulse Resp BP Pulse Ox 97.8 F 73 18 115/53 L 98 05/10/20 08:00 05/10/20 08:00 05/10/20 08:00 05/10/20 08:00 05/10/20 08:00 Intake & Output 05/09/20 05/10/20 05/11/20 06:59 06:59 06:59 Intake Total 1730 481 Output Total 1225 1150 Balance 505 -669 Weight 90.7 kg 91 kg General appearance: PRESENT: no acute distress Head exam: PRESENT: atraumatic Eye exam: PRESENT: conjunctiva pale, PERRLA Mouth exam: PRESENT: moist, tongue midline Teeth exam: PRESENT: poor dentation Respiratory exam: PRESENT: decreased breath sounds Pulses: PRESENT: normal dorsalis pedis pul GI/Abdominal exam: PRESENT: normal bowel sounds, soft. ABSENT: distended, guarding, mass, organolmegaly, rebound, tenderness Rectal exam: PRESENT: deferred Extremities exam: PRESENT: full ROM. ABSENT: calf tenderness, clubbing, pedal edema Neurological exam: PRESENT: alert, awake, oriented to person, oriented to place, oriented to time, oriented to situation, CN II-XII grossly intact. ABSENT: motor sensory deficit Skin exam: PRESENT: dry, intact, warm. ABSENT: cyanosis, rash Results Laboratory Results: 05/04/20 05/04/20 15:28 15:28 Troponin I < 0.012 NT-Pro-B Natriuret Pep 8850 H Impressions: Abdomen/Pelvis CT 05/04/20 16:25 IMPRESSION: 1. Multiple innumerable pulmonary nodules in the visualized lungs. Considerations for these findings include metastatic disease in view of the patient's given history. Very small right pleural effusion. 2. Hepatomegaly and splenomegaly. There are multiple various sized hypoattenuated hepatic lesions probably represent metastatic disease. The possibility of splenic lesions not entirely excluded. 3. Large soft tissue mass in the head of the pancreas which extends into the luz hepatis and portacaval regions probably consistent with the patient's known history of pancreatic neoplasm with associated lymphadenopathy. Intrahepatic biliary dilatation is suggested with soft tissue density within the vessels may represent tumor thrombus. 4. Prominent retroperitoneal lymphadenopathy. 5. The patient's hardware obscures detail somewhat in the abdomen and pelvic region. 6. Ill-defined soft tissue mass in the anterior subcutaneous tissues of the lower abdomen. If surgery has been performed, this may be on a postsurgical basis, if no history of surgery, considerations for this finding includes metastatic disease. 7. Additional findings as above. Chest X-Ray 05/05/20 00:00 IMPRESSION: No interval change when compared to yesterday. Assessment and Plan - Diagnosis (1) Acute respiratory failure with hypoxia Is this a current diagnosis for this admission?: Yes Plan: Her oxygen saturations dropped below 80%. This is most likely due to volume repletion for her dehydration and kidney failure. Unfortunately her renal function is still quite poor however we will need to hold the IV fluids and administer Lasix to try and diurese her. Her oxygen demands increase steadily. She is now on 100% nonrebreather mask oxygen supplementation. She still appears to exhibit increased work of breathing. 05/06/20-pulse ox in the upper 90s on 5 L of oxygen. Receiving IV diuretics. She is also on a dopamine drip to maintain the blood pressure. Overall prognosis poor condition is critical. Chest x-ray done yesterday compared to previous x-rays no change. 05/07/2020-pulse ox today is 99% on 5 L. On examination chest bilateral entry was decreased few crackles at the bases. Not on IV fluids receiving IV dopamine 05/08/2020-pulse ox is 99% on 5 L this morning. Not on IV fluids for blood pressure support, she is receiving IV dopamine. 05/09-pulse ox today's 100% 5 L. Comfortably in the bed communicating well. Not in distress. 05/10-pulse ox is 99 on 5 lts... Comfortably in the bed communicating well. (2) Adenocarcinoma of pancreas, stage 4 Is this a current diagnosis for this admission?: Yes Plan: Diffusely metastatic disease with extremely poor prognosis especially since the patient did not tolerate the first round of chemotherapy. 05/06/2020-patient has advanced adenocarcinoma of the pancreas stage IV due to 1 round of chemotherapy unable to tolerate patient does not want to go through further chemotherapy at this time. 05/07/2020-patient has advanced adenocarcinoma of thepancrea stage IV. Patient does not want any further chemotherapy at this time. Dr. Ramos is on board. 05/08/20-patient has advanced adenocarcinoma of grade stage IV, unable to tolerate the chemotherapy. 05/09/2020-patient has a stage IV advanced pancreatic cancer further management as per oncology team. (3) Hypotension Qualifiers: Qualified Code(s): I95.1 - Orthostatic hypotension Is this a current diagnosis for this admission?: Yes Plan: After the administration of furosemide her systolic blood pressure jumped into the 80s. I gave her 1 L bolus of saline and started a dopamine infusion at 5 mcg/kg/min. 05/06/2020-patient is hypotensive with a blood pressure of 104/54. She is on 10 mics of dopamine drip at this time. 05/07-patient is still hypotensive on dopamine drip. 05/08/2020-blood pressure is 105/50 on dopamine drip at this time. 05/09/2020-blood pressure today is 118/60. Plan is to continue dopamine drip at this time. 05/10/2020-blood pressure today's 115/60. Stable. To discontinue dopamine drip from today. Given a small dose of IV Lasix this morning. (4) Stomatitis and mucositis Is this a current diagnosis for this admission?: Yes Plan: From recent chemotherapy. Supportive care and topical treatment. 05/06/2020-patient does not want to be on tablets Carafate plan is to change to liquid Carafate from today. 05/10/2020-patient is receiving Carafate and Protonix Dr. Chun is planning to start her on a small dose of Duragesic patch for heartburn and pain. (5) YESSENIA (acute kidney injury) Is this a current diagnosis for this admission?: Yes Plan: Likely secondary to volume loss. Currently receiving IV fluids. Will monitor renal function and try to avoid nephrotoxic medications or adjust her doses accordingly. 05/06/2020-serum creatinine on admission is 3.36 improved to 2.11. Acute on chronic kidney injury is improving at this time. 05/07/2020-today's creatinine is pending. Urinary output is good. 05/08/2020-latest creatinine is 1.5 on admission creatinine is 3.36. Acute kidney injury is resolving. 05/10/2020-today's labs are pending. Creatinine significantly improved. (6) Diarrhea Qualifiers: Qualified Code(s): R19.7 - Diarrhea, unspecified Is this a current diagnosis for this admission?: Yes Plan: A fecal collection system has been put in place 05/06/2020-patient has rectal tube persistent diarrhea may be secondary to c hemotherapy. 05/07/2020-patient still have the rectal tube and watery diarrhea foul-smelling diarrhea can be seen. To check for the C. difficile at this time. 05/08/2020-C. difficile is negative. Patient continued to have diarrhea. It may be secondary to chemotherapy patient received. 05/09/2020-patient has a rectal tube continue to have a loose stools, C. difficile negative receiving Lomotil and Imodium on alternating basis. 05/10/2020-rectal tube was removed and diarrhea significantly improved. - Time Anticipated Discharge Disposition: Home with Home Health Anticipated Discharge Timeframe: within 72 hours
--- NOTE | 2020-05-10 09:20 | PDOC PROGRESS REPORT ---
Subjective Progress Note for:: 05/10/20 Subjective:: Rectal Ott was removed, but patient is still complaining of severe epigastric pain and diarrhea. Yesterday, she did receive the Lomotil in addition to the imodium. She has not been asking for "pain medications" so nurses have not been giving it. She is very frustrated that nothing has gotten any better. She remains on dopamine drip, but she has had some elevated BP readings. Reason For Visit: YESSENIA,DEHYDRATION Physical Exam Vital Signs: Temp Pulse Resp BP Pulse Ox 97.8 F 73 18 115/53 L 98 05/10/20 08:00 05/10/20 08:00 05/10/20 08:00 05/10/20 08:00 05/10/20 08:00 Intake & Output 05/09/20 05/10/20 05/11/20 06:59 06:59 06:59 Intake Total 1730 481 Output Total 1225 1150 Balance 505 -669 Weight 90.7 kg 91 kg General appearance: PRESENT: no acute distress, well-developed, well-nourished Head exam: PRESENT: normocephalic Eye exam: PRESENT: EOMI Respiratory exam: PRESENT: unlabored Extremities exam: ABSENT: pedal edema Musculoskeletal exam: PRESENT: normal inspection Neurological exam: PRESENT: alert, awake, oriented to person, oriented to place, oriented to time, oriented to situation Psychiatric exam: PRESENT: appropriate affect Skin exam: PRESENT: normal color Results Laboratory Results: 05/04/20 05/04/20 15:28 15:28 Troponin I < 0.012 NT-Pro-B Natriuret Pep 8850 H Impressions: Abdomen/Pelvis CT 05/04/20 16:25 IMPRESSION: 1. Multiple innumerable pulmonary nodules in the visualized lungs. Considerations for these findings include metastatic disease in view of the patient's given history. Very small right pleural effusion. 2. Hepatomegaly and splenomegaly. There are multiple various sized hypoattenuated hepatic lesions probably represent metastatic disease. The possibility of splenic lesions not entirely excluded. 3. Large soft tissue mass in the head of the pancreas which extends into the luz hepatis and portacaval regions probably consistent with the patient's known history of pancreatic neoplasm with associated lymphadenopathy. Intrahepatic biliary dilatation is suggested with soft tissue density within the vessels may represent tumor thrombus. 4. Prominent retroperitoneal lymphadenopathy. 5. The patient's hardware obscures detail somewhat in the abdomen and pelvic region. 6. Ill-defined soft tissue mass in the anterior subcutaneous tissues of the lower abdomen. If surgery has been performed, this may be on a postsurgical basis, if no history of surgery, considerations for this finding includes metastatic disease. 7. Additional findings as above. Chest X-Ray 05/05/20 00:00 IMPRESSION: No interval change when compared to yesterday. Assessment & Plan - Diagnosis (1) Dehydration Is this a current diagnosis for this admission?: Yes Plan: No IV fluids, due to third spacing. Continue to push oral fluids. Advance diet if tolerated. (2) Hypotension Qualifiers: Hypotension type: orthostatic hypotension Qualified Code(s): I95.1 - Orthostatic hypotension Is this a current diagnosis for this admission?: Yes Plan: Wean dopamine today. (3) Pancreatic cancer Qualifiers: Pancreatic malignancy location: body of pancreas Qualified Code(s): C25.1 - Malignant neoplasm of body of pancreas Is this a current diagnosis for this admission?: Yes Plan: All treatment on hold. I have explained that it is difficult to say if her symptoms are due to chemo or the cancer. I had expected symptoms to improve by now if this was all chemo induced. However, they continue. (4) Stomatitis and mucositis Is this a current diagnosis for this admission?: Yes Plan: with severe colitis. I will add duragesic as well as sandostatin to help symptoms today. Rectal ott has been removed. Continue RTC imodium and lomotil. All stool cultures have been negative. - Time Time Spent with patient: 15-24 minutes - Plan Summary Plan Summary: Patient was discussed with Dr. Hinson.
[2020-05-10] MEDS: DOPAMINE HCL/DEXTROSE 5%-WATER 800 MG/250 ML RTUINJ IV PRN ×2 (09:33→23:37)
[2020-05-10] MEDS: SUCRALFATE 1 GM TABLET PO SCH ×4 (09:35→21:56)
[2020-05-10] MEDS: TIZANIDINE HCL 4 MG TABLET PO SCH (09:35)
[2020-05-10] MEDS: GABAPENTIN 300 MG CAPSULE PO SCH (09:35)
[2020-05-10] MEDS: DIPHENOXYLATE HCL/ATROP SULF 2.5-0.025 MG TABLET PO SCH ×4 (09:35→21:56)
[2020-05-10] MEDS: CLOPIDOGREL BISULFATE 75 MG TABLET PO SCH (09:35)
[2020-05-10] MEDS: BACLOFEN 10 MG TABLET PO SCH (09:35)
[2020-05-10] MEDS: NYSTATIN/DEXAMETH/DIPHEN SUSP 120 ML PO SCH ×4 (09:38→22:09)
[2020-05-10] MEDS: FLUTICASONE NASAL SPRAY 50 MCG/SPRY 120 SPRAY/16 GM NASL SCH ×2 (09:40→17:20)
[2020-05-10] MEDS: COLCHICINE 0.6 MG TABLET PO SCH (09:42)
[2020-05-10 09:52] LABS: ABSOLUTE MONOCYTES # (MANUAL) 0.5 10^3/uL (0.1-1.4); BAND NEUTROPHILS % (MANUAL) 3 % (3-5); BASOPHILS % (MANUAL) 0 % (0-2); EOSINOPHILS % (MANUAL) 0 % (0-6); LYMPHOCYTES % (MANUAL) 8 % (13-45); MONOCYTES % (MANUAL) 4 % (3-13); NUCLEATED RED BLOOD CELLS 3 /100 WBC (0); SEGMENTED NEUTROPHILS % (MAN) 85 % (42-78); TOTAL CELLS COUNTED 100
[2020-05-10 09:53] LABS: ANISOCYTOSIS 2+; HYPOCHROMASIA 1+; PLATELET COMMENT DECREASED; POLYCHROMASIA 1+; TOXIC GRANULATION 2+
[2020-05-10 09:54] LABS: OVALOCYTES 2+; PLATELET CLUMPS PRESENT; POIKILOCYTOSIS 2+; SCHISTOCYTES SLIGHT; TEAR DROP CELLS SLIGHT
[2020-05-10 09:55] LABS: PLATELET COUNT 131 10^3/uL (150-450)
[2020-05-10] MEDS ORDERED: FENTANYL 25 MCG/HR PATCH.TD72 TD SCH (10:00)
[2020-05-10] MEDS: OCTREOTIDE ACETATE INJ/PF 100 MCG/1 ML SDV IV SCH ×2 (13:52→21:56)
--- NOTE | 2020-05-10 20:12 | XCELERA REPORT ---
[address] [address] Transthoracic Echocardiogram Report Name: ZBIGNIEW TRUJILLO Age: 59 yrs Gender: Female : 1960 Patient Status: Inpatient Patient Location: [facility]^A Study Date: 05/06/2020 09:34 AM Height: 61 in Weight: 194 lb BSA: 1.9 m2 Procedure: A two-dimensional transthoracic echocardiogram with color flow and Doppler was performed. The study was technically limited with all images being suboptimal in quality. Reason For Study: hypotension after chemo evaluate LVEF. History: hypotension after chemo evaluate LVEF. Ordering Physician: GARETT HOWARD Performed By: Marie Lane Interpretation Summary The left ventricle is normal in size. There is normal left ventricular wall thickness. LV EF is > than 75% The left ventricle is hyperdynamic. Hyperdynamic LV contractility No ASD,VSD , or PFO seen. There is no evidence of mitral valve prolapse. There is no vegetation seen on the mitral valve. There is no mitral valve stenosis. There is no aortic valvular vegetation. There is mild aortic stenosis There is a peak gradient of 23 mm of Hg. There is no tricuspid stenosis. There is a trace to mild amount of tricuspid regurgitation RVSP is 50 mm of Hg , with RA mean of 0 to5. There is no pulmonic valvular stenosis. There is a trace amount of pulmonic regurgitation The inferior vena cava appeared small and collapsed with respiration (RAP 0-5 mmHg) There is no pericardial effusion. MMode/2D Measurements & Calculations RVDd: 2.8 cm LVIDd: 3.2 cm FS: 44.2 % Ao root diam: 2.4 cm IVSd: 1.1 cm LVIDs: 1.8 cm EDV(Teich): 41.1 ml Ao root area: 4.4 cm2 LVPWd: 1.1 cm ESV(Teich): 9.5 ml EF(Teich): 76.8 % Doppler Measurements & Calculations MV E max saranya: MV dec slope: Ao V2 max: LV V1 max P.4 cm/sec 361.7 cm/sec2 240.1 cm/sec 11.6 mmHg MV A max saranya: MV dec time: 0.23 secAo max PG: LV V1 max: 108.9 cm/sec 23.1 mmHg 170.6 cm/sec MV E/A: 0.78 PA V2 max: TR max saranya: 162.1 cm/sec 333.5 cm/sec PA max P.5 mmHgTR max P.9 mmHg Left Ventricle The left ventricle is normal in size. There is normal left ventricular wall thickness. LV EF is > than 75%. The left ventricle is hyperdynamic. Doppler measurements suggest impaired left ventricular relaxation, which is associated with grade I/IV or mild diastolic dysfunction. Hyperdynamic LV contractility. There is no thrombus. No ASD,VSD , or PFO seen. Right Ventricle The right ventricle is normal in size and function. Atria The right atrium is normal. The left atrial size is normal. Mitral Valve There is no evidence of mitral valve prolapse. There is no vegetation seen on the mitral valve. There is no mitral valve stenosis. There is a trace amount of mitral regurgitation. Aortic Valve There is no aortic valvular vegetation. There is mild aortic stenosis. There is a peak gradient of 23 mm of Hg. No aortic regurgitation is present. Tricuspid Valve There is no tricuspid stenosis. There is a trace to mild amount of tricuspid regurgitation. There is moderate pulmonary hypertension by echo. RVSP is 50 mm of Hg , with RA mean of 0 to5. Pulmonic Valve There is no pulmonic valvular stenosis. There is a trace amount of pulmonic regurgitation. Great Vessels The aortic root is not well visualized but is probably normal size. The inferior vena cava appeared small and collapsed with respiration (RAP 0-5 mmHg). Effusions There is no pericardial effusion. : GARETT HOWARD Lakshmi
[2020-05-10] MEDS: FAMOTIDINE INJ/PF 20 MG/2 ML SDV IV SCH (21:56)
[2020-05-10] MEDS: TEMAZEPAM 7.5 MG CAPSULE PO SCH (21:56)
[2020-05-10] MEDS: MELATONIN 5 MG TABLET PO SCH (21:56)
[2020-05-11] MEDS: LEVOTHYROXINE SODIUM 0.15 MG TABLET PO SCH (05:59)
[2020-05-11] MEDS: OCTREOTIDE ACETATE INJ/PF 100 MCG/1 ML SDV IV SCH ×3 (05:59→21:08)
[2020-05-11] MEDS: LOPERAMIDE HCL 2 MG CAPSULE PO SCH ×4 (05:59→23:14)
[2020-05-11] MEDS: PANTOPRAZOLE SODIUM 40 MG TABLET.DR PO SCH ×2 (05:59→17:28)
[2020-05-11 06:59] LABS: HEMATOCRIT 28.8 % (36.0-47.0); HEMOGLOBIN 9.4 g/dL (12.0-15.5); MEAN CORPUSCULAR HEMOGLOBIN 23.4 pg (27.0-33.4); MEAN CORPUSCULAR HGB CONC 32.5 g/dL (32.0-36.0); MEAN CORPUSCULAR VOLUME 72 fl (80-97); PLATELET COUNT 136 10^3/uL (150-450); RED CELL DISTRIBUTION WIDTH 19.7 % (11.5-14.0); WHITE BLOOD COUNT 17.1 10^3/uL (4.0-10.5)
[2020-05-11 07:08] LABS: ALBUMIN 2.1 g/dL (3.5-5.0); ALKALINE PHOSPHATASE 356 U/L (38-126); ANION GAP 9 (5-19); ASPARTATE AMINO TRANSFERASE 82 U/L (14-36); BILIRUBIN,DIRECT 0.7 mg/dL (0.0-0.4); BILIRUBIN,TOTAL 0.9 mg/dL (0.2-1.3); BLOOD UREA NITROGEN 40 mg/dL (7-20); CALCIUM 7.9 mg/dL (8.4-10.2); CARBON DIOXIDE 19 mmol/L (22-30); CHLORIDE 103 mmol/L (98-107); GLUCOSE 198 mg/dL (75-110); POTASSIUM 3.6 mmol/L (3.6-5.0); TOTAL PROTEIN 4.9 g/dL (6.3-8.2)
[2020-05-11 07:23] LABS: ABSOLUTE LYMPHOCYTES# (MANUAL) 1.2 10^3/uL (0.5-4.7); ABSOLUTE MONOCYTES # (MANUAL) 0.3 10^3/uL (0.1-1.4); ANISOCYTOSIS 2+; BASOPHILS % (MANUAL) 0 % (0-2); EOSINOPHILS % (MANUAL) 0 % (0-6); LYMPHOCYTES % (MANUAL) 7 % (13-45); MONOCYTES % (MANUAL) 2 % (3-13); PLATELET COMMENT DECREASED; SEGMENTED NEUTROPHILS % (MAN) 91 % (42-78); TOTAL CELLS COUNTED 100
[2020-05-11 07:24] LABS: HYPOCHROMASIA SLIGHT; OVALOCYTES 1+; POIKILOCYTOSIS 1+
[2020-05-11] MEDS: NYSTATIN/DEXAMETH/DIPHEN SUSP 120 ML PO SCH ×4 (09:23→21:09)
[2020-05-11] MEDS: CLOPIDOGREL BISULFATE 75 MG TABLET PO SCH (09:23)
[2020-05-11] MEDS: DIPHENOXYLATE HCL/ATROP SULF 2.5-0.025 MG TABLET PO SCH ×4 (09:23→21:08)
[2020-05-11] MEDS: TIZANIDINE HCL 4 MG TABLET PO SCH (09:24)
[2020-05-11] MEDS: FLUTICASONE NASAL SPRAY 50 MCG/SPRY 120 SPRAY/16 GM NASL SCH ×2 (09:24→17:29)
[2020-05-11] MEDS: BACLOFEN 10 MG TABLET PO SCH (09:24)
[2020-05-11] MEDS: SUCRALFATE 1 GM TABLET PO SCH ×4 (09:24→21:08)
[2020-05-11] MEDS: COLCHICINE 0.6 MG TABLET PO SCH (09:24)
[2020-05-11] MEDS: GABAPENTIN 300 MG CAPSULE PO SCH (09:24)
--- NOTE | 2020-05-11 09:36 | PDOC PROGRESS REPORT ---
Subjective Progress Note for:: 05/11/20 Subjective:: Patient states that her loose stools are better today, but still present. No change to the severe heartburn pain. She is trying to eat and drink as much as possible. She remains on dopamine drip. All of her supplements and other possible offending agents have been stopped. She denies any problems with the duragesic patch. She was not aware that this had been placed. Reason For Visit: YESSENIA,DEHYDRATION Physical Exam Vital Signs: Temp Pulse Resp BP Pulse Ox 97.6 F 98 20 112/65 97 05/11/20 04:21 05/11/20 08:32 05/11/20 04:21 05/11/20 08:32 05/11/20 04:21 Intake & Output 05/10/20 05/11/20 05/12/20 06:59 06:59 06:59 Intake Total 481 1244 Output Total 1150 2200 Balance -669 -956 Weight 91 kg 88.5 kg General appearance: PRESENT: obese Head exam: PRESENT: normocephalic Eye exam: PRESENT: EOMI Mouth exam: PRESENT: dry mucosa Respiratory exam: PRESENT: unlabored Extremities exam: ABSENT: pedal edema Neurological exam: PRESENT: alert, awake Psychiatric exam: PRESENT: appropriate affect Skin exam: PRESENT: pallor Results Laboratory Results: 05/11/20 06:30 05/11/20 06:30 05/10/20 05/11/20 05/11/20 08:22 06:30 06:30 WBC 12.5 H 17.1 H RBC 3.52 L 4.00 Hgb 8.3 L 9.4 L Hct 25.4 L 28.8 L MCV 72 L 72 L MCH 23.5 L 23.4 L MCHC 32.5 32.5 RDW 20.0 H 19.7 H Plt Count 131 L 136 L Seg Neutrophils % Not Reportable Sodium 130.7 L Potassium 3.6 Chloride 103 Carbon Dioxide 19 L Anion Gap 9 BUN 40 H Creatinine 1.22 Est GFR ( Amer) 54 L Glucose 198 H Calcium 7.9 L Total Bilirubin 0.9 AST 82 H Alkaline Phosphatase 356 H Total Protein 4.9 L Albumin 2.1 L 05/04/20 05/04/20 15:28 15:28 Troponin I < 0.012 NT-Pro-B Natriuret Pep 8850 H Impressions: Abdomen/Pelvis CT 05/04/20 16:25 IMPRESSION: 1. Multiple innumerable pulmonary nodules in the visualized lungs. Considerations for these findings include metastatic disease in view of the patient's given history. Very small right pleural effusion. 2. Hepatomegaly and splenomegaly. There are multiple various sized hypoattenuated hepatic lesions probably represent metastatic disease. The possibility of splenic lesions not entirely excluded. 3. Large soft tissue mass in the head of the pancreas which extends into the luz hepatis and portacaval regions probably consistent with the patient's kn own history of pancreatic neoplasm with associated lymphadenopathy. Intrahepatic biliary dilatation is suggested with soft tissue density within the vessels may represent tumor thrombus. 4. Prominent retroperitoneal lymphadenopathy. 5. The patient's hardware obscures detail somewhat in the abdomen and pelvic region. 6. Ill-defined soft tissue mass in the anterior subcutaneous tissues of the lo wer abdomen. If surgery has been performed, this may be on a postsurgical basis, if no history of surgery, considerations for this finding includes metastatic disease. 7. Additional findings as above. Chest X-Ray 05/05/20 00:00 IMPRESSION: No interval change when compared to yesterday. Assessment & Plan - Diagnosis (1) Dehydration Is this a current diagnosis for this admission?: Yes Plan: Improved. renal function markedly improved. No IV fluids. IV Lasix given again yesterday. (2) Hypotension Qualifiers: Hypotension type: orthostatic hypotension Qualified Code(s): I95.1 - O rthostatic hypotension Is this a current diagnosis for this admission?: Yes Plan: Continues dopamine, but hope to wean this today. (3) Pancreatic cancer Qualifiers: Pancreatic malignancy location: body of pancreas Qualified Code(s): C25.1 - Malignant neoplasm of body of pancreas Is this a current diagnosis for this admission?: Yes Plan: All treatment on hold. Duragesic was added for pain. May increase this to 50 mcg tomorrow if BP has improved. (4) Stomatitis and mucositis Is this a current diagnosis for this admission?: Yes Plan: Imodium, Lomotil, sandostatin all at regular scheduled doses. Slowly improving. - Time Time Spent with patient: 15-24 minutes
--- NOTE | 2020-05-11 12:38 | PDOC PROGRESS REPORT ---
Subjective Progress Note for:: 05/11/20 Subjective:: Patient appears to be in discomfort. She reports a cough that tends to make her short of breath. She also appears uncomfortable at times. Reason For Visit: YESSENIA,DEHYDRATION Physical Exam Vital Signs: Temp Pulse Resp BP Pulse Ox 97.6 F 68 20 105/65 97 05/11/20 10:00 05/11/20 11:00 05/11/20 04:21 05/11/20 11:00 05/11/20 04:21 Intake & Output 05/10/20 05/11/20 05/12/20 06:59 06:59 06:59 Intake Total 481 1244 Output Total 1150 2200 Balance -669 -956 Weight 91 kg 88.5 kg General appearance: PRESENT: cooperative, mild distress, well-developed Head exam: PRESENT: atraumatic, normocephalic Ear exam: PRESENT: normal external ear exam. ABSENT: bleeding, drainage Mouth exam: PRESENT: moist, tongue midline Respiratory exam: PRESENT: decreased breath sounds, rales, symmetrical, unlabored. ABSENT: rhonchi, tachypnea, wheezes Cardiovascular exam: PRESENT: RRR, +S1, +S2, systolic murmur - 2/6, other - S4 GI/Abdominal exam: PRESENT: distended, hypoactive bowel sounds, soft, tenderness - More in the right upper quadrant epigastrium. ABSENT: guarding Rectal exam: PRESENT: deferred Extremities exam: PRESENT: pedal edema Musculoskeletal exam: ABSENT: ambulatory - Extremely weak, deformity, dislocation Neurological exam: PRESENT: alert, awake, CN II-XII grossly intact. ABSENT: oriented to person, oriented to place, oriented to situation Psychiatric exam: PRESENT: flat affect. ABSENT: agitated, anxious Focused psych exam: ABSENT: delusional, paranoid, restlessness Skin exam: PRESENT: dry, warm. ABSENT: rash Results Laboratory Results: 05/11/20 06:30 05/11/20 06:30 05/11/20 05/11/20 06:30 06:30 WBC 17.1 H RBC 4.00 Hgb 9.4 L Hct 28.8 L MCV 72 L MCH 23.4 L MCHC 32.5 RDW 19.7 H Plt Count 136 L Seg Neutrophils % Not Reportable Sodium 130.7 L Potassium 3.6 Chloride 103 Carbon Dioxide 19 L Anion Gap 9 BUN 40 H Creatinine 1.22 Est GFR ( Amer) 54 L Glucose 198 H Calcium 7.9 L Total Bilirubin 0.9 AST 82 H Alkaline Phosphatase 356 H Total Protein 4.9 L Albumin 2.1 L 05/04/20 05/04/20 15:28 15:28 Troponin I < 0.012 NT-Pro-B Natriuret Pep 8850 H Impressions: Abdomen/Pelvis CT 05/04/20 16:25 IMPRESSION: 1. Multiple innumerable pulmonary nodules in the visualized lungs. Considerations for these findings include metastatic disease in view of the patient's given history. Very small right pleural effusion. 2. Hepatomegaly and splenomegaly. There are multiple various sized hypoattenuated hepatic lesions probably represent metastatic disease. The possibility of splenic lesions not entirely excluded. 3. Large soft tissue mass in the head of the pancreas which extends into the luz hepatis and portacaval regions probably consistent with the patient's known history of pancreatic neoplasm with associated lymphadenopathy. Intrahepa tic biliary dilatation is suggested with soft tissue density within the vessels may represent tumor thrombus. 4. Prominent retroperitoneal lymphadenopathy. 5. The patient's hardware obscures detail somewhat in the abdomen and pelvic region. 6. Ill-defined soft tissue mass in the anterior subcutaneous tissues of the lower abdomen. If surgery has been performed, this may be on a postsurgical bas is, if no history of surgery, considerations for this finding includes metastatic disease. 7. Additional findings as above. Chest X-Ray 05/05/20 00:00 IMPRESSION: No interval change when compared to yesterday. Assessment and Plan - Diagnosis (1) Acute respiratory failure with hypoxia Is this a current diagnosis for this admission?: Yes Plan: Still requiring 5 L nasal cannula. We will recheck chest x-ray to look for pleural effusions. Continue oxygen supplementation. (2) Adenocarcinoma of pancreas, stage 4 Is this a current diagnosis for this admission?: Yes Plan: Acute treatment still on hold. The first dose of chemotherapy was not tolerated by the patient at all. We will need to discuss with the patient plans for future treatment versus more of a hospice level care. (3) Hypotension Qualifiers: Hypotension type: orthostatic hypotension Qualified Code(s): I95.1 - Orthostatic hypotension Is this a current diagnosis for this admission?: Yes Plan: Remains on dopamine. We will try and avoid fluid boluses due to the potential for fluid retention. (4) Stomatitis and mucositis Is this a current diagnosis for this admission?: Yes Plan: Still with lots of discomfort. Duragesic patch was added to the Protonix, famotidine and Carafate regimen. (5) YESSENIA (acute kidney injury) Is this a current diagnosis for this admission?: Yes Plan: Still with mild renal dysfunction. Continue to monitor renal function and electrolytes. (6) Elevated transaminase level Is this a current diagnosis for this admission?: Yes Plan: Likely due to metastatic disease. Continue to monitor. (7) Diarrhea Qualifiers: Diarrhea type: unspecified type Qualified Code(s): R19.7 - Diarrhea, unsp ecified Is this a current diagnosis for this admission?: Yes Plan: Appears to be improving. The fecal collection system has been removed. (8) Anemia Qualifiers: Anemia type: iron deficiency Iron deficiency anemia type: unspecified iron deficiency Qualified Code(s): D50.9 - Iron deficiency anemia, unspecified Is this a current diagnosis for this admission?: Yes Plan: The patient still remains anemic but we have been able to avoid transfusion so far. (9) Hyponatremia Is this a current diagnosis for this admission?: Yes Plan: Most likely due to fluid balance in light of the malignancy. Continue to monitor electrolytes. Consider fluid restriction however the hypotension would make this difficult. (10) CAD (coronary artery disease) Qualifiers: Coronary Disease-Associated Artery/Lesion type: [place] artery [place] vs. transplanted heart: [place] heart Associated angina: without angina Qualified Code(s): I25.10 - Atherosclerotic heart disease of [place] coronary artery without angina pectoris Is this a current diagnosis for this admission?: Yes Plan: Currently asymptomatic. Continue cardiac medications. (11) Hypercholesterolemia Is this a current diagnosis for this admission?: Yes Plan: Continue statin therapy. At this point discontinuing nonessential medicines could be considered. (12) Dehydration Is this a current diagnosis for this admission?: Yes Plan: Appears to be rehydrated. Continue to monitor intake and output. - Time Time Spent with patient: 15-24 minutes Medications reviewed and adjusted accordingly: Yes Anticipated Discharge Disposition: Home with Hospice Anticipated Discharge Timeframe: Unknown
[2020-05-11] MEDS: DOPAMINE HCL/DEXTROSE 5%-WATER 800 MG/250 ML RTUINJ IV PRN (14:49)
[2020-05-11] MEDS: FAMOTIDINE INJ/PF 20 MG/2 ML SDV IV SCH (21:08)
[2020-05-11] MEDS: MELATONIN 5 MG TABLET PO SCH (21:08)
[2020-05-12] MEDS: LOPERAMIDE HCL 2 MG CAPSULE PO SCH ×4 (06:06→23:35)
[2020-05-12] MEDS: LEVOTHYROXINE SODIUM 0.15 MG TABLET PO SCH (06:07)
[2020-05-12] MEDS: OCTREOTIDE ACETATE INJ/PF 100 MCG/1 ML SDV IV SCH ×3 (06:07→21:26)
[2020-05-12] MEDS: PANTOPRAZOLE SODIUM 40 MG TABLET.DR PO SCH ×2 (06:07→18:18)
[2020-05-12] MEDS: DOPAMINE HCL/DEXTROSE 5%-WATER 800 MG/250 ML RTUINJ IV PRN ×2 (06:44→22:15)
--- NOTE | 2020-05-12 08:58 | PDOC PROGRESS REPORT ---
Subjective Progress Note for:: 05/12/20 Subjective:: Patient has same complaints today as yesterday, no significant change. She is now requesting a CT scan to "see where we are." I have again explained to the patient that although I was hoping most of her symptoms were due to chemo, it appears that most of her symptoms are due to the cancer and these may never improve. She again requests something else for the acid reflux. I have maximized treatment as far as I know. Her BP was again low yesterday after large BM. Her BMs are less frequent, but are still quite concerning. She states that she still wants to get up to chair, but has been told that due to her BP, she may not do this. I spoke with nursing and they deny this. They state that she has refused to work with physical therapy to try to get her up to a chair. Reason For Visit: YESSENIA,DEHYDRATION Physical Exam Vital Signs: Temp Pulse Resp BP Pulse Ox 97.6 F 78 20 100/47 L 99 05/12/20 04:05 05/12/20 06:00 05/12/20 04:05 05/12/20 06:00 05/12/20 04:05 Intake & Output 05/11/20 05/12/20 05/13/20 06:59 06:59 06:59 Intake Total 1244 1576 Output Total 2200 780 Balance -956 796 Weight 88.5 kg 89.2 kg General appearance: PRESENT: obese Head exam: PRESENT: normocephalic Mouth exam: PRESENT: dry mucosa Respiratory exam: PRESENT: unlabored GI/Abdominal exam: PRESENT: soft, tenderness Neurological exam: PRESENT: alert, awake Psychiatric exam: PRESENT: appropriate affect Skin exam: PRESENT: normal color Results Laboratory Results: 05/11/20 06:30 05/11/20 06:30 05/04/20 05/04/20 15:28 15:28 Troponin I < 0.012 NT-Pro-B Natriuret Pep 8850 H Impressions: Abdomen/Pelvis CT 05/04/20 16:25 IMPRESSION: 1. Multiple innumerable pulmonary nodules in the visualized lungs. Considerations for these findings include metastatic disease in view of the patient's given history. Very small right pleural effusion. 2. Hepatomegaly and splenomegaly. There are multiple various sized hypoattenuated hepatic lesions probably represent metastatic disease. The possibility of splenic lesions not entirely excluded. 3. Large soft tissue mass in the head of the pancreas which extends into the luz hepatis and portacaval regions probably consistent with the patient's known history of pancreatic neoplasm with associated lymphadenopathy. Intrahepatic biliary dilatation is suggested with soft tissue density within the vessels may represent tumor thrombus. 4. Prominent retroperitoneal lymphadenopathy. 5. The patient's hardware obscures detail somewhat in the abdomen and pelvic region. 6. Ill-defined soft tissue mass in the anterior subcutaneous tissues of the lower abdomen. If surgery has been performed, this may be on a postsurgical basis, if no history of surgery, considerations for this finding includes metastatic disease. 7. Additional findings as above. Chest X-Ray 05/05/20 00:00 IMPRESSION: No interval change when compared to yesterday. Assessment & Plan - Diagnosis (1) Dehydration Is this a current diagnosis for this admission?: Yes (2) Hypotension Qualifiers: Hypotension type: orthostatic hypotension Qualified Code(s): I95.1 - Orthostatic hypotension Is this a current diagnosis for this admission?: Yes (3) Pancreatic cancer Qualifiers: Pancreatic malignancy location: body of pancreas Qualified Code(s): C25.1 - Malignant neoplasm of body of pancreas Is this a current diagnosis for this admission?: Yes Plan: We again discussed palliative care and option for discharge with Hospice to focus on comfort but she again tells me that she wants to fight and eventually wants to undergo more treatment for her cancer, but "not the same thing as before." I have explained that the only further treatment I recommend would be to continue the chemo and that we may give a decreased dose, or only one of the two drugs, but it would be the same drugs as before. I do not believe she is a good candidate for radiation or for FOLFIRINOX. I again tried to explain that CT is not safe or needed right now, as I know that the cancer is what is causing her symptoms. (4) Stomatitis and mucositis Is this a current diagnosis for this admission?: Yes - Time Time Spent with patient: 25-34 minutes - Plan Summary Plan Summary: Will keep all other meds the same right now with maximum support, except to again try to wean the dopamine. I have again tried to encourage her to eat and sit up on chair.
[2020-05-12] MEDS: DIPHENOXYLATE HCL/ATROP SULF 2.5-0.025 MG TABLET PO SCH ×4 (09:44→21:25)
[2020-05-12] MEDS: TIZANIDINE HCL 4 MG TABLET PO SCH (09:44)
[2020-05-12] MEDS: COLCHICINE 0.6 MG TABLET PO SCH (09:44)
[2020-05-12] MEDS: FLUTICASONE NASAL SPRAY 50 MCG/SPRY 120 SPRAY/16 GM NASL SCH ×2 (09:44→18:18)
[2020-05-12] MEDS: GABAPENTIN 300 MG CAPSULE PO SCH (09:44)
[2020-05-12] MEDS: CLOPIDOGREL BISULFATE 75 MG TABLET PO SCH (09:44)
[2020-05-12] MEDS: SUCRALFATE 1 GM TABLET PO SCH ×4 (09:44→21:25)
[2020-05-12] MEDS: BACLOFEN 10 MG TABLET PO SCH (09:44)
[2020-05-12] MEDS: NYSTATIN/DEXAMETH/DIPHEN SUSP 120 ML PO SCH ×4 (09:45→21:34)
[2020-05-12] MEDS: FENTANYL 50 MCG/HR PATCH.TD72 TD SCH (09:48)
--- NOTE | 2020-05-12 10:17 | RADIOLOGY REPORT (SQ) ---
EXAM DESCRIPTION: CHEST SINGLE VIEW IMAGES COMPLETED DATE/TIME: 05/12/2020 9:35 am REASON FOR STUDY: Respiratory failure with hypoxia COMPARISON: AP view of the chest from 05/05/2020. EXAM PARAMETERS: NUMBER OF VIEWS: One view. TECHNIQUE: An AP view of the chest was obtained. RADIATION DOSE: NA LIMITATIONS: None. FINDINGS: LUNGS AND PLEURA: Unchanged diffuse interstitial opacities without a superimposed consolid ation, sizeable pleural effusion or pneumothorax. MEDIASTINUM AND HILAR STRUCTURES: No mediastinal or hilar contour abnormality. HEART AND VASCULAR STRUCTURES: The cardiac silhouette and pulmonary vasculature are within normal solares its. BONES: No acute findings. HARDWARE: The tip of the left IJ single-lumen poor projects near the junction of the brachiocephalic vein. OTHER: No other finding. IMPRESSION: No acute cardiopulmonary process. TECHNICAL DOCUMENTATION: JOB ID: [id number] 2010 [employer]- All Rights Reserved Reading location - IP/workstation name: [email or web address]
--- NOTE | 2020-05-12 15:09 | PDOC PROGRESS REPORT ---
Subjective Progress Note for:: 05/12/20 Subjective:: The patient is resting in bed. She continues to appear quite ill. She was able to pull herself up in the bed. Blood pressures are still marginal. Reason For Visit: YESSENIA,DEHYDRATION Physical Exam Vital Signs: Temp Pulse Resp BP Pulse Ox 97.6 F 71 20 108/55 L 99 05/12/20 10:00 05/12/20 11:00 05/12/20 04:05 05/12/20 11:00 05/12/20 04:05 Intake & Output 05/11/20 05/12/20 05/13/20 06:59 06:59 06:59 Intake Total 1244 1576 Output Total 2200 780 Balance -956 796 Weight 88.5 kg 89.2 kg General appearance: PRESENT: cooperative, mild distress, well-developed Head exam: PRESENT: atraumatic, normocephalic Eye exam: PRESENT: conjunctiva pale. ABSENT: scleral icterus Ear exam: PRESENT: normal external ear exam. ABSENT: bleeding, drainage Mouth exam: PRESENT: dry mucosa, tongue midline Respiratory exam: PRESENT: clear to auscultation yadi, symmetrical, unlabored. ABSENT: rales, rhonchi, tachypnea, wheezes Cardiovascular exam: PRESENT: RRR, +S1, +S2. ABSENT: bradycardia, diastolic murmur, irregular rhythm, systolic murmur, tachycardia GI/Abdominal exam: PRESENT: hypoactive bowel sounds, soft, tenderness Rectal exam: PRESENT: deferred Gentrourinary exam: PRESENT: indwelling catheter Extremities exam: PRESENT: pedal edema Musculoskeletal exam: ABSENT: ambulatory Neurological exam: PRESENT: alert, awake, oriented to person, oriented to place, oriented to time, oriented to situation, CN II-XII grossly intact Psychiatric exam: PRESENT: appropriate affect - Appears overwhelmed.. ABSENT: agitated, anxious Focused psych exam: ABSENT: delusional, paranoid, restlessness Results Laboratory Results: 05/11/20 06:30 05/11/20 06:30 05/04/20 05/04/20 15:28 15:28 Troponin I < 0.012 NT-Pro-B Natriuret Pep 8850 H Impressions: Abdomen/Pelvis CT 05/04/20 16:25 IMPRESSION: 1. Multiple innumerable pulmonary nodules in the visualized lungs. Considerations for these findings include metastatic disease in view of the patient's given history. Very small right pleural effusion. 2. Hepatomegaly and splenomegaly. There are multiple various sized hypoattenuated hepatic lesions probably represent metastatic disease. The possibility of splenic lesions not entirely excluded. 3. Large soft tissue mass in the head of the pancreas which extends into the luz hepatis and portacaval regions probably consistent with the patient's known history of pancreatic neoplasm with associated lymphadenopathy. Intrahepatic biliary dilatation is suggested with soft tissue density within the vessels may represent tumor thrombus. 4. Prominent retroperitoneal lymphadenopathy. 5. The patient's hardware obscures detail somewhat in the abdomen and pelvic region. 6. Ill-defined soft tissue mass in the anterior subcutaneous tissues of the lower abdomen. If surgery has been performed, this may be on a postsurgical basis, if no history of surgery, considerations for this finding includes metastatic disease. 7. Additional findings as above. Chest X-Ray 05/12/20 00:00 IMPRESSION: No acute cardiopulmonary process. Assessment and Plan - Diagnosis (1) Acute respiratory failure with hypoxia Is this a current diagnosis for this admission?: Yes Plan: Remains on 5 L nasal cannula. Inspiratory phase hampered somewhat by elevated right diaphragm. (2) Adenocarcinoma of pancreas, stage 4 Is this a current diagnosis for this admission?: Yes Plan: Pancreatic and liver masses creating discomfort. Difficult to control with patient remaining functional. Continue to adjust medications. (3) Hypotension Qualifiers: Hypotension type: orthostatic hypotension Qualified Code(s): I95.1 - Orthostatic hypotension Is this a current diagnosis for this admission?: Yes Plan: Remains on dopamine at 10 mcg (4) Stomatitis and mucositis Is this a current diagnosis for this admission?: Yes Plan: Slowly improving (5) YESSENIA (acute kidney injury) Is this a current diagnosis for this admission?: Yes Plan: Renal function improving. Continue to monitor. (6) Elevated transaminase level Is this a current diagnosis for this admission?: Yes Plan: Still elevated. Continue to monitor. (7) Diarrhea Qualifiers: Diarrhea type: unspecified type Qualified Code(s): R19.7 - Diarrhea, unspecified Is this a current diagnosis for this admission?: Yes Plan: Improved somewhat. On Lomotil and loperamide (8) Anemia Qualifiers: Anemia type: iron deficiency Iron deficiency anemia type: unspecified iron deficiency Qualified Code(s): D50.9 - Iron deficiency anemia, unspecified Is this a current diagnosis for this admission?: Yes Plan: Anemia was slowly improving. Continue to monitor. (9) Hyponatremia Is this a current diagnosis for this admission?: Yes Plan: Sodium 130. Continue to monitor. (10) CAD (coronary artery disease) Qualifiers: Coronary Disease-Associated Artery/Lesion type: [place] artery [place] vs. transplanted heart: [place] heart Associated angina: without angina Qualified Code(s): I25.10 - Atherosclerotic heart disease of [place] coronary artery without angina pectoris Is this a current diagnosis for this admission?: Yes Plan: No evidence of acute coronary symptoms. Continue current regimen. (11) Hypercholesterolemia Is this a current diagnosis for this admission?: Yes Plan: Continue statin therapy although under the circumstances it would be reasonable to stop. (12) Dehydration Is this a current diagnosis for this admission?: Yes Plan: Monitor closely. IV fluids as needed. - Time Time Spent with patient: 25-34 minutes Medications reviewed and adjusted accordingly: Yes Anticipated Discharge Disposition: Home with Home Health Anticipated Discharge Timeframe: Unknown
[2020-05-12] MEDS: MELATONIN 5 MG TABLET PO SCH (21:25)
[2020-05-12] MEDS: FAMOTIDINE INJ/PF 20 MG/2 ML SDV IV SCH (21:26)
[2020-05-12] MEDS ORDERED: NORMAL SALINE 1000 ML 1,000 ML IV ONE (21:30)
[2020-05-13] MEDS: LEVOTHYROXINE SODIUM 0.15 MG TABLET PO SCH (05:11)
[2020-05-13] MEDS: LOPERAMIDE HCL 2 MG CAPSULE PO SCH ×4 (05:11→23:29)
[2020-05-13] MEDS: OCTREOTIDE ACETATE INJ/PF 100 MCG/1 ML SDV IV SCH (05:12)
[2020-05-13] MEDS: PANTOPRAZOLE SODIUM 40 MG TABLET.DR PO SCH ×2 (05:12→17:29)
[2020-05-13 07:41] LABS: ALBUMIN 2.1 g/dL (3.5-5.0); ALKALINE PHOSPHATASE 430 U/L (38-126); ANION GAP 12 (5-19); ASPARTATE AMINO TRANSFERASE 100 U/L (14-36); BILIRUBIN,DIRECT 0.7 mg/dL (0.0-0.4); BILIRUBIN,TOTAL 0.9 mg/dL (0.2-1.3); BLOOD UREA NITROGEN 35 mg/dL (7-20); CALCIUM 7.7 mg/dL (8.4-10.2); CARBON DIOXIDE 15 mmol/L (22-30); CHLORIDE 107 mmol/L (98-107); GLUCOSE 183 mg/dL (75-110); POTASSIUM 3.6 mmol/L (3.6-5.0)
--- NOTE | 2020-05-13 07:51 | PDOC PROGRESS REPORT ---
Subjective Progress Note for:: 05/13/20 Subjective:: Patient more talkative today, but still states that she is having severe reflux and RUQ abdominal pain. Duragesic was increased yesterday and she only rarely asks for her percocet. She was still not able to get out of bed, because "they don't want me to." She wants to go home, but again declines Hospice services. She wants more treatment, but "not chemo." Reason For Visit: YESSENIA,DEHYDRATION Physical Exam Vital Signs: Temp Pulse Resp BP Pulse Ox 97.5 F 82 21 H 116/63 97 05/13/20 03:44 05/13/20 06:00 05/13/20 03:44 05/13/20 06:00 05/13/20 03:44 Intake & Output 05/12/20 05/13/20 05/14/20 06:59 06:59 06:59 Intake Total 1576 2368 Output Total 780 1180 Balance 796 1188 Weight 89.2 kg 90 kg General appearance: PRESENT: morbidly obese Head exam: PRESENT: normocephalic Mouth exam: PRESENT: dry mucosa Respiratory exam: PRESENT: unlabored GI/Abdominal exam: PRESENT: tenderness Extremities exam: ABSENT: pedal edema Neurological exam: PRESENT: alert, awake. ABSENT: oriented to time Psychiatric exam: PRESENT: appropriate affect Skin exam: PRESENT: normal color Results Laboratory Results: 05/13/20 06:38 05/13/20 06:38 Sodium 134.0 L Potassium 3.6 Chloride 107 Carbon Dioxide 15 L Anion Gap 12 BUN 35 H Creatinine 1.02 Est GFR ( Amer) > 60 Glucose 183 H Calcium 7.7 L Magnesium 1.7 Total Bilirubin 0.9 AST 100 H Alkaline Phosphatase 430 H Total Protein 5.0 L Albumin 2.1 L 05/04/20 05/04/20 15:28 15:28 Troponin I < 0.012 NT-Pro-B Natriuret Pep 8850 H Impressions: Abdomen/Pelvis CT 05/04/20 16:25 IMPRESSION: 1. Multiple innumerable pulmonary nodules in the visualized lungs. Considerations for these findings include metastatic disease in view of the patient's given history. Very small right pleural effusion. 2. Hepatomegaly and splenomegaly. There are multiple various sized hypoattenuated hepatic lesions probably represent metastatic disease. The possibility of splenic lesions not entirely excluded. 3. Large soft tissue mass in the head of the pancreas which extends into the luz hepatis and portacaval regions probably consistent with the patient's known history of pancreatic neoplasm with associated lymphadenopathy. Intrahepatic biliary dilatation is suggested with soft tissue density within the vessels may represent tumor thrombus. 4. Prominent retroperitoneal lymphadenopathy. 5. The patient's hardware obscures detail somewhat in the abdomen and pelvic region. 6. Ill-defined soft tissue mass in the anterior subcutaneous tissues of the lower abdomen. If surgery has been performed, this may be on a postsurgical basis, if no history of surgery, considerations for this finding includes metastatic disease. 7. Additional findings as above. Chest X-Ray 05/12/20 00:00 IMPRESSION: No acute cardiopulmonary process. Assessment & Plan - Diagnosis (1) Dehydration Is this a current diagnosis for this admission?: Yes (2) Hypotension Qualifiers: Hypotension type: orthostatic hypotension Qualified Code(s): I95.1 - Orthostatic hypotension Is this a current diagnosis for this admission?: Yes (3) Pancreatic cancer Qualifiers: Pancreatic malignancy location: body of pancreas Qualified Code(s): C25.1 - Malignant neoplasm of body of pancreas Is this a current diagnosis for this admission?: Yes Plan: I again had a long discussion with her about further treatment. I have explai kris that the pain and symptoms are due to the cancer and without further treatment it will only get worse. I printed a copy of the CT report from on admission, and explained that this showed further progression of her disease. She has only had 1 dose (1/2 cycle) of chemo which is not enough to show significant change on any scans. Goals over the next few days are still to get pain under better control (Duragesic was increased yesterday), wean from dopamine and maintain BP, and get her up out of bed safely. (4) Stomatitis and mucositis Is this a current diagnosis for this admission?: Yes - Time Time Spent with patient: 15-24 minutes - Plan Summary Plan Summary: Dr. Alcala will be covering until 05/18/2020. Please call with any concerns.
[2020-05-13] MEDS: SUCRALFATE 1 GM TABLET PO SCH ×4 (08:49→21:30)
[2020-05-13] MEDS: CLOPIDOGREL BISULFATE 75 MG TABLET PO SCH (10:56)
[2020-05-13] MEDS: BACLOFEN 10 MG TABLET PO SCH (10:56)
[2020-05-13] MEDS: DIPHENOXYLATE HCL/ATROP SULF 2.5-0.025 MG TABLET PO SCH ×4 (10:56→21:30)
[2020-05-13] MEDS: TIZANIDINE HCL 4 MG TABLET PO SCH (10:56)
[2020-05-13] MEDS: GABAPENTIN 300 MG CAPSULE PO SCH (10:56)
[2020-05-13] MEDS: COLCHICINE 0.6 MG TABLET PO SCH (10:56)
[2020-05-13] MEDS: FLUTICASONE NASAL SPRAY 50 MCG/SPRY 120 SPRAY/16 GM NASL SCH ×2 (10:58→17:30)
[2020-05-13] MEDS: NYSTATIN/DEXAMETH/DIPHEN SUSP 120 ML PO SCH ×4 (10:58→21:33)
[2020-05-13 11:22] LABS: HEMATOCRIT 29.3 % (36.0-47.0); HEMOGLOBIN 9.4 g/dL (12.0-15.5); MEAN CORPUSCULAR HEMOGLOBIN 23.1 pg (27.0-33.4); MEAN CORPUSCULAR HGB CONC 32.1 g/dL (32.0-36.0); MEAN CORPUSCULAR VOLUME 72 fl (80-97); RED BLOOD COUNT 4.07 10^6/uL (3.72-5.28); RED CELL DISTRIBUTION WIDTH 20.1 % (11.5-14.0); WHITE BLOOD COUNT 21.7 10^3/uL (4.0-10.5)
[2020-05-13 12:41] LABS: PLATELET COUNT 81 10^3/uL (150-450)
[2020-05-13 12:42] LABS: ABSOLUTE LYMPHOCYTES# (MANUAL) 1.1 10^3/uL (0.5-4.7); ABSOLUTE MONOCYTES # (MANUAL) 0.9 10^3/uL (0.1-1.4); BAND NEUTROPHILS % (MANUAL) 1 % (3-5); BASOPHILS % (MANUAL) 0 % (0-2); EOSINOPHILS % (MANUAL) 0 % (0-6); LYMPHOCYTES % (MANUAL) 5 % (13-45); MONOCYTES % (MANUAL) 4 % (3-13); SEGMENTED NEUTROPHILS % (MAN) 90 % (42-78); TOTAL CELLS COUNTED 100; TOXIC GRANULATION 1+; TOXIC VACUOLATION PRESENT
[2020-05-13 12:43] LABS: HYPOCHROMASIA SLIGHT; OVALOCYTES SLIGHT; PLATELET COMMENT DECREASED; POLYCHROMASIA SLIGHT; TEAR DROP CELLS SLIGHT
[2020-05-13] MEDS: DOPAMINE HCL/DEXTROSE 5%-WATER 800 MG/250 ML RTUINJ IV PRN (15:12)
--- NOTE | 2020-05-13 16:06 | PDOC PROGRESS REPORT ---
Subjective Progress Note for:: 05/13/20 Subjective:: The patient's is at the bedside. To assist back to full CODE STATUS. She expresses expectations to be around for her grandchildren. Reason For Visit: YESSENIA,DEHYDRATION Physical Exam Vital Signs: Temp Pulse Resp BP Pulse Ox 98.1 F 73 16 110/52 L 100 05/13/20 15:33 05/13/20 15:33 05/13/20 15:33 05/13/20 15:33 05/13/20 15:33 Intake & Output 05/12/20 05/13/20 05/14/20 06:59 06:59 06:59 Intake Total 1576 2368 250 Output Total 780 1180 Balance 796 1188 250 Weight 89.2 kg 90 kg General appearance: PRESENT: cooperative, mild distress, well-developed Head exam: PRESENT: atraumatic, normocephalic Respiratory exam: PRESENT: rales - Faint at right base, symmetrical, tachypnea. ABSENT: rhonchi, wheezes Cardiovascular exam: PRESENT: RRR, +S1, +S2 GI/Abdominal exam: PRESENT: distended, mass - Hepatomegaly, soft. ABSENT: tenderness Gentrourinary exam: PRESENT: indwelling catheter Extremities exam: PRESENT: pedal edema Musculoskeletal exam: PRESENT: normal inspection Neurological exam: PRESENT: alert, awake, oriented to person, oriented to place, oriented to situation Psychiatric exam: ABSENT: agitated, anxious Focused psych exam: ABSENT: delusional, paranoid, restlessness Results Laboratory Results: 05/13/20 10:42 05/13/20 06:38 05/13/20 05/13/20 05/13/20 06:38 06:38 10:42 WBC Cancelled 21.7 H RBC Cancelled 4.07 Hgb Cancelled 9.4 L Hct Cancelled 29.3 L MCV Cancelled 72 L MCH Cancelled 23.1 L MCHC Cancelled 32.1 RDW Cancelled 20.1 H Plt Count Cancelled 81 L Seg Neutrophils % Cancelled Not Reportable Sodium 134.0 L Potassium 3.6 Chloride 107 Carbon Dioxide 15 L Anion Gap 12 BUN 35 H Creatinine 1.02 Est GFR ( Amer) > 60 Glucose 183 H Calcium 7.7 L Magnesium 1.7 Total Bilirubin 0.9 AST 100 H Alkaline Phosphatase 430 H Total Protein 5.0 L Albumin 2.1 L 05/04/20 05/04/20 15:28 15:28 Troponin I < 0.012 NT-Pro-B Natriuret Pep 8850 H Impressions: Abdomen/Pelvis CT 05/04/20 16:25 IMPRESSION: 1. Multiple innumerable pulmonary nodules in the visualized lungs. Considerations for these findings include metastatic disease in view of the patient's given history. Very small right pleural effusion. 2. Hepatomegaly and splenomegaly. There are multiple various sized hypoattenuated hepatic lesions probably represent metastatic disease. The possibility of splenic lesions not entirely excluded. 3. Large soft tissue mass in the head of the pancreas which extends into the luz hepatis and portacaval regions probably consistent with the patient's known history of pancreatic neoplasm with associated lymphadenopathy. Intrahepatic biliary dilatation is suggested with soft tissue density within the vessels may represent tumor thrombus. 4. Prominent retroperitoneal lymphadenopathy. 5. The patient's hardware obscures detail somewhat in the abdomen and pelvic region. 6. Ill-defined soft tissue mass in the anterior subcutaneous tissues of the lower abdomen. If surgery has been performed, this may be on a postsurgical basis, if no history of surgery, considerations for this finding includes metastatic disease. 7. Additional findings as above. Chest X-Ray 05/12/20 00:00 IMPRESSION: No acute cardiopulmonary process. Assessment and Plan - Diagnosis (1) Acute respiratory failure with hypoxia Is this a current diagnosis for this admission?: Yes Plan: Continues to require 5 L oxygen nasal cannula (2) Adenocarcinoma of pancreas, stage 4 Is this a current diagnosis for this admission?: Yes Plan: Patient discussed her change of CODE STATUS and her sister to pursue treatment. She wants to work with therapy and get out of bed daily. She is still having si gnificant pain across the abdomen. To be honest think the amount of pain medication to ease her pain will be too sedating. It is good to see a change of heart however in my opinion she has unrealistic expectations. (3) Hypotension Qualifiers: Hypotension type: orthostatic hypotension Qualified Code(s): I95.1 - Orthostatic hypotension Is this a current diagnosis for this admission?: Yes Plan: With some IV fluid the patient's blood pressure is slightly better. I am going to add 5 mg of midodrine 3 times a day and effort to taper her off the dopamine and facilitate discharge (4) Stomatitis and mucositis Is this a current diagnosis for this admission?: Yes Plan: Slowly improving (5) YESSENIA (acute kidney injury) Is this a current diagnosis for this admission?: Yes Plan: Renal function improving. Continue to monitor. (6) Elevated transaminase level Is this a current diagnosis for this admission?: Yes Plan: Today the alkaline phosphatase was higher at 430. The AST and ALT were both higher than the last blood work. Clearly related to her malignancy. (7) Diarrhea Qualifiers: Diarrhea type: unspecified type Qualified Code(s): R19.7 - Diarrhea, unspecified Is this a current diagnosis for this admission?: Yes Plan: Slowly improving (8) Anemia Qualifiers: Anemia type: iron deficiency Iron deficiency anemia type: unspecified iron deficiency Qualified Code(s): D50.9 - Iron deficiency anemia, unspecified Is this a current diagnosis for this admission?: Yes Plan: Hemoglobin is 9.4. Appears to be improving. (9) Hyponatremia Is this a current diagnosis for this admission?: Yes Plan: Sodium is actually back to 134. Continues to improve. Continue to monitor. (10) CAD (coronary artery disease) Qualifiers: Coronary Disease-Associated Artery/Lesion type: [place] artery [place] vs. transplanted heart: [place] heart Associated angina: without angina Qualified Code(s): I25.10 - Atherosclerotic heart disease of [place] coronary artery without angina pectoris Is this a current diagnosis for this admission?: Yes Plan: No evidence of acute coronary symptoms. Continue current regimen. (11) Hypercholesterolemia Is this a current diagnosis for this admission?: Yes Plan: Continue statin therapy although under the circumstances it would be reasonable to stop. (12) Dehydration Is this a current diagnosis for this admission?: Yes Plan: BUN is increased. Will give IV fluids. This will help with her blood pressure as well. Need to be careful not to fluid overload. (13) Leukocytosis Qualifiers: Leukocytosis type: unspecified Qualified Code(s): D72.829 - Elevated white blood cell count, unspecified Is this a current diagnosis for this admission?: Yes Plan: White blood cell count is rising. It is up to 21 today. No obvious source of infection and the patient is afebrile. Continue to monitor. (14) Hyperglycemia due to diabetes mellitus Is this a current diagnosis for this admission?: Yes Plan: Start Accu-Cheks with sliding scale coverage now that patient's appetite is improving (15) Thrombocytopenia Is this a current diagnosis for this admission?: Yes Plan: Platelets are down to 81. Continue to monitor. - Time Time Spent with patient: 25-34 minutes Medications reviewed and adjusted accordingly: Yes Anticipated Discharge Disposition: Home with Home Health Anticipated Discharge Timeframe: within 72 hours
[2020-05-13] MEDS ORDERED: GLUCAGON,HUMAN RECOMB 1 MG INJ IM PRN (17:12)
[2020-05-13] MEDS ORDERED: DEXTROSE 40% GEL 15 GM TUBE PO PRN ×2 (17:12)
[2020-05-13] MEDS ORDERED: DEXTROSE 50%-WATER 25 GM/50 ML DISP.SYRIN IV PRN ×2 (17:12)
[2020-05-13] MEDS: MIDODRINE HCL 5 MG TABLET PO SCH (17:29)
[2020-05-13] MEDS: FAMOTIDINE INJ/PF 20 MG/2 ML SDV IV SCH (21:30)
[2020-05-13] MEDS: MELATONIN 5 MG TABLET PO SCH (21:30)
[2020-05-13] MEDS: INSULIN REG, HUMAN 100 UNIT/ML 3 ML VIAL (PYX) SUBCUT SCH (21:31)
[2020-05-14] MEDS: DOPAMINE HCL/DEXTROSE 5%-WATER 800 MG/250 ML RTUINJ IV PRN ×2 (03:40→20:10)
[2020-05-14] MEDS: LOPERAMIDE HCL 2 MG CAPSULE PO SCH ×3 (06:11→17:22)
[2020-05-14] MEDS: PANTOPRAZOLE SODIUM 40 MG TABLET.DR PO SCH ×2 (06:12→17:22)
[2020-05-14] MEDS: LEVOTHYROXINE SODIUM 0.15 MG TABLET PO SCH (06:12)
[2020-05-14 08:01] LABS: ALBUMIN 2.1 g/dL (3.5-5.0); ALKALINE PHOSPHATASE 483 U/L (38-126); ANION GAP 10 (5-19); ASPARTATE AMINO TRANSFERASE 92 U/L (14-36); BILIRUBIN,DIRECT 0.7 mg/dL (0.0-0.4); BLOOD UREA NITROGEN 28 mg/dL (7-20); CALCIUM 7.8 mg/dL (8.4-10.2); CARBON DIOXIDE 17 mmol/L (22-30); CHLORIDE 108 mmol/L (98-107); GLUCOSE 146 mg/dL (75-110); POTASSIUM 3.3 mmol/L (3.6-5.0); TOTAL PROTEIN 5.1 g/dL (6.3-8.2)
--- NOTE | 2020-05-14 08:31 | PDOC PROGRESS REPORT ---
Subjective Progress Note for:: 05/14/20 Subjective:: Patient really wants to get up, had long discussion with patient this morning Reason For Visit: YESSENIA,DEHYDRATION Physical Exam Vital Signs: Temp Pulse Resp BP Pulse Ox 98.1 F 85 16 117/60 100 05/13/20 15:33 05/14/20 06:00 05/13/20 15:33 05/14/20 07:00 05/13/20 15:33 Intake & Output 05/13/20 05/14/20 05/15/20 06:59 06:59 06:59 Intake Total 2368 458 Output Total 1180 350 Balance 1188 108 Weight 90 kg 88.8 kg General appearance: PRESENT: no acute distress, well-developed, well-nourished Head exam: PRESENT: atraumatic, normocephalic Eye exam: PRESENT: conjunctiva pink, EOMI, PERRLA. ABSENT: scleral icterus Ear exam: PRESENT: normal external ear exam Mouth exam: PRESENT: moist, tongue midline Neck exam: ABSENT: carotid bruit, JVD, lymphadenopathy, thyromegaly Respiratory exam: PRESENT: clear to auscultation yadi. ABSENT: rales, rhonchi, wheezes Cardiovascular exam: PRESENT: RRR. ABSENT: diastolic murmur, rubs, systolic murmur Pulses: PRESENT: normal dorsalis pedis pul Vascular exam: PRESENT: normal capillary refill GI/Abdominal exam: PRESENT: normal bowel sounds, soft. ABSENT: distended, guarding, mass, organolmegaly, rebound, tenderness Rectal exam: PRESENT: deferred Extremities exam: PRESENT: full ROM. ABSENT: calf tenderness, clubbing, pedal edema Neurological exam: PRESENT: alert, awake, oriented to person, oriented to place, oriented to time, oriented to situation, CN II-XII grossly intact. ABSENT: motor sensory deficit Psychiatric exam: PRESENT: appropriate affect, normal mood. ABSENT: homicidal ideation, suicidal ideation Skin exam: PRESENT: dry, intact, warm. ABSENT: cyanosis, rash Results Laboratory Results: 05/14/20 07:10 05/13/20 05/13/20 05/14/20 06:38 10:42 07:10 WBC Cancelled 21.7 H RBC Cancelled 4.07 Hgb Cancelled 9.4 L Hct Cancelled 29.3 L MCV Cancelled 72 L MCH Cancelled 23.1 L MCHC Cancelled 32.1 RDW Cancelled 20.1 H Plt Count Cancelled 81 L Seg Neutrophils % Cancelled Not Reportable Sodium 134.9 L Potassium 3.3 L Chloride 108 H Carbon Dioxide 17 L Anion Gap 10 BUN 28 H Creatinine 0.84 Est GFR ( Amer) > 60 Glucose 146 H Calcium 7.8 L Magnesium 1.7 Total Bilirubin 1.0 AST 92 H Alkaline Phosphatase 483 H Total Protein 5.1 L Albumin 2.1 L 05/04/20 05/04/20 15:28 15:28 Troponin I < 0.012 NT-Pro-B Natriuret Pep 8850 H Impressions: Abdomen/Pelvis CT 05/04/20 16:25 IMPRESSION: 1. Multiple innumerable pulmonary nodules in the visualized lungs. Considerations for these findings include metastatic disease in view of the patient's given history. Very small right pleural effusion. 2. Hepatomegaly and splenomegaly. There are multiple various sized hypoattenuated hepatic lesions probably represent metastatic disease. The possibility of splenic lesions not entirely excluded. 3. Large soft tissue mass in the head of the pancreas which extends into the luz hepatis and portacaval regions probably consistent with the patient's known history of pancreatic neoplasm with associated lymphadenopathy. Intrahepatic biliary dilatation is suggested with soft tissue density within the vessels may represent tumor thrombus. 4. Prominent retroperitoneal lymphadenopathy. 5. The patient's hardware obscures detail somewhat in the abdomen and pelvic region. 6. Ill-defined soft tissue mass in the anterior subcutaneous tissues of the lower abdomen. If surgery has been performed, this may be on a postsurgical basis, if no history of surgery, considerations for this finding includes metastatic disease. 7. Additional findings as above. Chest X-Ray 05/12/20 00:00 IMPRESSION: No acute cardiopulmonary process. Assessment & Plan - Diagnosis (1) Dehydration Is this a current diagnosis for this admission?: Yes Plan: Continue with supportive care (2) Hypotension Qualifiers: Hypotension type: orthostatic hypotension Qualified Code(s): I95.1 - Orthostatic hypotension Is this a current diagnosis for this admission?: Yes Plan: Continue with supportive care (3) Adenocarcinoma of pancreas, stage 4 Is this a current diagnosis for this admission?: Yes Plan: Not able to receive therapy but still not ready for comfort care (4) Stomatitis and mucositis Is this a current diagnosis for this admission?: Yes Plan: Continue supportive care - Time Time Spent with patient: 25-34 minutes
[2020-05-14] MEDS: INSULIN REG, HUMAN 100 UNIT/ML 3 ML VIAL (PYX) SUBCUT SCH ×4 (08:37→21:48)
[2020-05-14] MEDS: SUCRALFATE 1 GM TABLET PO SCH ×4 (08:43→21:47)
[2020-05-14] MEDS: BACLOFEN 10 MG TABLET PO SCH (10:20)
[2020-05-14] MEDS: TIZANIDINE HCL 4 MG TABLET PO SCH (10:20)
[2020-05-14] MEDS: MIDODRINE HCL 5 MG TABLET PO SCH ×3 (10:20→17:22)
[2020-05-14] MEDS: COLCHICINE 0.6 MG TABLET PO SCH (10:20)
[2020-05-14] MEDS: DIPHENOXYLATE HCL/ATROP SULF 2.5-0.025 MG TABLET PO SCH ×4 (10:20→21:46)
[2020-05-14] MEDS: NYSTATIN/DEXAMETH/DIPHEN SUSP 120 ML PO SCH ×4 (10:21→22:26)
[2020-05-14] MEDS: GABAPENTIN 300 MG CAPSULE PO SCH (10:21)
[2020-05-14] MEDS: CLOPIDOGREL BISULFATE 75 MG TABLET PO SCH (10:21)
[2020-05-14] MEDS: FLUTICASONE NASAL SPRAY 50 MCG/SPRY 120 SPRAY/16 GM NASL SCH ×2 (10:24→17:23)
[2020-05-14 10:44] LABS: HEMATOCRIT 28.4 % (36.0-47.0); HEMOGLOBIN 9.4 g/dL (12.0-15.5); MEAN CORPUSCULAR HEMOGLOBIN 23.6 pg (27.0-33.4); MEAN CORPUSCULAR HGB CONC 33.1 g/dL (32.0-36.0); MEAN CORPUSCULAR VOLUME 71 fl (80-97); RED BLOOD COUNT 3.99 10^6/uL (3.72-5.28); RED CELL DISTRIBUTION WIDTH 20.2 % (11.5-14.0); WHITE BLOOD COUNT 19.8 10^3/uL (4.0-10.5)
[2020-05-14 10:48] LABS: PLATELET COUNT 75 10^3/uL (150-450)
[2020-05-14 11:00] LABS: ABSOLUTE LYMPHOCYTES# (MANUAL) 1.6 10^3/uL (0.5-4.7); ABSOLUTE MONOCYTES # (MANUAL) 1.4 10^3/uL (0.1-1.4); ANISOCYTOSIS 2+; BASOPHILS % (MANUAL) 0 % (0-2); EOSINOPHILS % (MANUAL) 1 % (0-6); LYMPHOCYTES % (MANUAL) 8 % (13-45); MONOCYTES % (MANUAL) 7 % (3-13); PLATELET COMMENT DECREASED; SEGMENTED NEUTROPHILS % (MAN) 84 % (42-78); TOTAL CELLS COUNTED 100
[2020-05-14 11:01] LABS: OVALOCYTES 1+; POIKILOCYTOSIS 1+
--- NOTE | 2020-05-14 15:00 | PDOC PROGRESS REPORT ---
Subjective Progress Note for:: 05/14/20 Subjective:: The nurse called and reported that the patient was having an episode of hypotension. She remains on 10 mcg of dopamine. Reason For Visit: YESSENIA,DEHYDRATION Physical Exam Vital Signs: Temp Pulse Resp BP Pulse Ox 97.8 F 90 20 90/55 L 99 05/14/20 11:55 05/14/20 11:55 05/14/20 11:55 05/14/20 14:00 05/14/20 11:55 Intake & Output 05/13/20 05/14/20 05/15/20 06:59 06:59 06:59 Intake Total 2368 458 Output Total 1180 350 250 Balance 1188 108 -250 Weight 90 kg 88.8 kg General appearance: PRESENT: cooperative, mild distress Head exam: PRESENT: atraumatic, normocephalic Ear exam: PRESENT: TM's normal bilaterally Teeth exam: PRESENT: dental caries, poor dentation, other - Broken teeth Respiratory exam: PRESENT: clear to auscultation yadi, symmetrical, unlabored. ABSENT: rales, rhonchi, tachypnea, wheezes Cardiovascular exam: PRESENT: RRR, +S1, +S2 GI/Abdominal exam: PRESENT: soft Rectal exam: PRESENT: deferred Extremities exam: PRESENT: pedal edema Musculoskeletal exam: ABSENT: deformity, dislocation Neurological exam: PRESENT: alert, awake, oriented to person, oriented to place, oriented to situation, other - Slight dysarthria but this is due to her very dry mouth. Psychiatric exam: PRESENT: flat affect. ABSENT: agitated, anxious Focused psych exam: ABSENT: delusional, paranoid, restlessness Skin exam: PRESENT: dry, pallor, warm Results Laboratory Results: 05/14/20 09:28 05/14/20 07:10 05/14/20 05/14/20 05/14/20 07:10 07:10 09:28 WBC Cancelled 19.8 H RBC Cancelled 3.99 Hgb Cancelled 9.4 L Hct Cancelled 28.4 L MCV Cancelled 71 L MCH Cancelled 23.6 L MCHC Cancelled 33.1 RDW Cancelled 20.2 H Plt Count Cancelled 75 L Seg Neutrophils % Cancelled Not Reportable Sodium 134.9 L Potassium 3.3 L Chloride 108 H Carbon Dioxide 17 L Anion Gap 10 BUN 28 H Creatinine 0.84 Est GFR ( Amer) > 60 Glucose 146 H Calcium 7.8 L Magnesium 1.7 Total Bilirubin 1.0 AST 92 H Alkaline Phosphatase 483 H Total Protein 5.1 L Albumin 2.1 L 05/04/20 05/04/20 15:28 15:28 Troponin I < 0.012 NT-Pro-B Natriuret Pep 8850 H Impressions: Abdomen/Pelvis CT 05/04/20 16:25 IMPRESSION: 1. Multiple innumerable pulmonary nodules in the visualized lungs. Considerations for these findings include metastatic disease in view of the patient's given history. Very small right pleural effusion. 2. Hepatomegaly and splenomegaly. There are multiple various sized hypoattenuated hepatic lesions probably represent metastatic disease. The possibility of splenic lesions not entirely excluded. 3. Large soft tissue mass in the head of the pancreas which extends into the luz hepatis and portacaval regions probably consistent with the patient's known history of pancreatic neoplasm with associated lymphadenopathy. Intrahepatic biliary dilatation is suggested with soft tissue density within the vessels may represent tumor thrombus. 4. Prominent retroperitoneal lymphadenopathy. 5. The patient's hardware obscures detail somewhat in the abdomen and pelvic region. 6. Ill-defined soft tissue mass in the anterior subcutaneous tissues of the lower abdomen. If surgery has been performed, this may be on a postsurgical basis, if no history of surgery, considerations for this finding includes metastatic disease. 7. Additional findings as above. Chest X-Ray 05/12/20 00:00 IMPRESSION: No acute cardiopulmonary process. Assessment and Plan - Diagnosis (1) Acute respiratory failure with hypoxia Is this a current diagnosis for this admission?: Yes Plan: Still requiring 5 L nasal cannula. Continue to attempt to taper to room air. If this is not possible the patient may need home oxygen therapy due to the presence of multiple metastases in both lungs. (2) Adenocarcinoma of pancreas, stage 4 Is this a current diagnosis for this admission?: Yes Plan: The patient has numerous lesions in the lungs, liver, pancreas and abdominal cavity. She now wishes to be a full code. That she understands the gravity of coding the patient especially the patient as sick as she is. The likelihood of recovery is minimal. I did respect her wishes and change her CODE STATUS. She is now full code. (3) Hypotension Qualifiers: Hypotension type: unspecified hypotension type Qualified Code(s): I95.9 - Hypotension, unspecified Is this a current diagnosis for this admission?: Yes Plan: She remains on 10 mcg of dopamine. She had an episode of hypotension today. Her mouth is dry but I do not believe she is hypokalemic. In an effort to correct her pressure increased her midodrine to 10 mg 3 times a day and gave her a liter bolus of fluid and subsequently continued the fluid at 100 mL an hour. Will closely monitor her blood pressure and attempt to taper the dopamine drip to off as she will need to be off of dopamine to discharge to home. (4) Stomatitis and mucositis Is this a current diagnosis for this admission?: Yes Plan: Still with pain. She is utilizing a saliva substitute as well as Magic mouthwash. (5) YESSENIA (acute kidney injury) Is this a current diagnosis for this admission?: Yes Plan: Her GFR today was greater than 60. Acute kidney injury resolved. (6) Elevated transaminase level Is this a current diagnosis for this admission?: Yes Plan: AST and ALT are still elevated. They seem to trend up and down but stay within a window of elevation. The alkaline phosphatase however continues to trickle upwards. We will continue to monitor. (7) Diarrhea Qualifiers: Diarrhea type: unspecified type Qualified Code(s): R19.7 - Diarrhea, unspecified Is this a current diagnosis for this admission?: Yes Plan: The diarrhea appears to be resolving. We will continue to monitor. She is on scheduled loperamide and has Lomotil available. (8) Anemia Qualifiers: Anemia type: iron deficiency Iron deficiency anemia type: unspecified iron deficiency Qualified Code(s): D50.9 - Iron deficiency anemia, unspecified Is this a current diagnosis for this admission?: Yes Plan: Hemoglobin seems to be stable just above 9.0 since May 11, 2020. We will continue to monitor. (9) Hyponatremia Is this a current diagnosis for this admission?: Yes Plan: Serum sodium for the most part stays above 130. We will continue to monitor. Appetite varies and so we will monitor her serum sodium. No acute intervention for her current sodium level. (10) CAD (coronary artery disease) Qualifiers: Coronary Disease-Associated Artery/Lesion type: [place] artery [place] vs. transplanted heart: [place] Associated angina: without angina Qualified Code(s): I25.10 - Atherosclerotic heart disease of [place] artery withou t angina pectoris Is this a current diagnosis for this admission?: Yes Plan: No evidence of acute coronary symptoms. At this point she is only on Plavix. No antihypertensives due to her current blood pressure issues. Continue to monitor on telemetry and monitor for any cardiac issues. (11) Hypercholesterolemia Is this a current diagnosis for this admission?: Yes Plan: Will stop statin therapy as it is nonessential at this point. (12) Dehydration Is this a current diagnosis for this admission?: Yes Plan: Her mouth is dry but yet her renal function is normal. With her low blood pressure I am going to resume fluids. We will need to monitor. I do not believe she is dehydrated per se but we also need to treat blood pressure. (13) Leukocytosis Qualifiers: Leukocytosis type: unspecified Qualified Code(s): D72.829 - Elevated white blood cell count, unspecified Is this a current diagnosis for this admission?: Yes Plan: Her white blood cell count has been trending up. Yesterday it was 21,700. No obvious evidence of infection. We will continue to monitor closely and treat if a focus of infection is suspected. (14) Hyperglycemia due to diabetes mellitus Is this a current diagnosis for this admission?: Yes Plan: Currently on sliding scale with Accu-Cheks. Adjust regimen accordingly. Recent ly Accu-Cheks have been within a reasonable range and no adjustments have been necessary. (15) Thrombocytopenia Is this a current diagnosis for this admission?: Yes Plan: Platelets are slightly lower today than yesterday. We will continue to monitor. There is no evidence of bleeding. She is far enough away from chemotherapy th at it is not likely a chemotherapeutic effect. If they continue to drop we may need to stop the subcutaneous heparin injections and discontinue the Plavix. - Plan Summary Summary: 05/15/2020 I spent 45 to 50 minutes on the phone with her daughter Alice. - Time Time Spent with patient: 25-34 minutes Medications reviewed and adjusted accordingly: Yes Anticipated Discharge Disposition: Difficult to know at this time. Anticipated Discharge Timeframe: Unknown at this point
[2020-05-14] MEDS ORDERED: POTASSIUM CHLORIDE 10 MEQ TABLET.ER PO ONE (18:30)
[2020-05-14] MEDS: RINGERS SOLUTION,LACTATED 1,000 ML IV PRN (20:14)
[2020-05-14] MEDS: MELATONIN 5 MG TABLET PO SCH (21:47)
[2020-05-14] MEDS: FAMOTIDINE INJ/PF 20 MG/2 ML SDV IV SCH (21:48)
[2020-05-15] MEDS: LOPERAMIDE HCL 2 MG CAPSULE PO SCH ×3 (00:42→12:06)
[2020-05-15] MEDS: LEVOTHYROXINE SODIUM 0.15 MG TABLET PO SCH (05:48)
[2020-05-15] MEDS: MIDODRINE HCL 5 MG TABLET PO SCH ×3 (05:49→16:30)
[2020-05-15] MEDS: PANTOPRAZOLE SODIUM 40 MG TABLET.DR PO SCH ×2 (05:51→16:30)
[2020-05-15] MEDS: RINGERS SOLUTION,LACTATED 1,000 ML IV PRN ×2 (05:55→16:30)
[2020-05-15] MEDS: INSULIN REG, HUMAN 100 UNIT/ML 3 ML VIAL (PYX) SUBCUT SCH ×3 (09:11→16:24)
[2020-05-15] MEDS: FENTANYL 50 MCG/HR PATCH.TD72 TD SCH (09:22)
[2020-05-15] MEDS: SUCRALFATE 1 GM TABLET PO SCH ×4 (09:24→21:35)
[2020-05-15] MEDS: BACLOFEN 10 MG TABLET PO SCH (09:24)
[2020-05-15] MEDS: COLCHICINE 0.6 MG TABLET PO SCH (09:24)
[2020-05-15] MEDS: DOPAMINE HCL/DEXTROSE 5%-WATER 800 MG/250 ML RTUINJ IV PRN (09:24)
[2020-05-15] MEDS: NYSTATIN/DEXAMETH/DIPHEN SUSP 120 ML PO SCH ×4 (09:24→21:52)
[2020-05-15] MEDS: TIZANIDINE HCL 4 MG TABLET PO SCH (09:24)
[2020-05-15] MEDS: CLOPIDOGREL BISULFATE 75 MG TABLET PO SCH (09:24)
[2020-05-15] MEDS: GABAPENTIN 300 MG CAPSULE PO SCH (09:24)
[2020-05-15] MEDS: POTASSIUM CHLORIDE 10 MEQ TABLET.ER PO SCH (09:24)
[2020-05-15] MEDS: DIPHENOXYLATE HCL/ATROP SULF 2.5-0.025 MG TABLET PO SCH ×4 (09:24→21:35)
[2020-05-15] MEDS: FLUTICASONE NASAL SPRAY 50 MCG/SPRY 120 SPRAY/16 GM NASL SCH ×2 (09:25→18:31)
--- NOTE | 2020-05-15 11:56 | PDOC PROGRESS REPORT ---
Subjective Progress Note for:: 05/15/20 Subjective:: It seems like blood pressure is a little bit better. Reason For Visit: YESSENIA,DEHYDRATION Physical Exam Vital Signs: Temp Pulse Resp BP Pulse Ox 97.5 F 85 15 109/74 99 05/15/20 10:00 05/15/20 07:33 05/15/20 07:33 05/15/20 07:33 05/15/20 07:33 Intake & Output 05/14/20 05/15/20 05/16/20 06:59 06:59 06:59 Intake Total 458 1738 220 Output Total 350 725 Balance 108 1013 220 Weight 88.8 kg 87.2 kg General appearance: PRESENT: no acute distress, well-developed, well-nourished Head exam: PRESENT: atraumatic, normocephalic Eye exam: PRESENT: conjunctiva pink, EOMI, PERRLA. ABSENT: scleral icterus Ear exam: PRESENT: normal external ear exam Mouth exam: PRESENT: moist, tongue midline Neck exam: ABSENT: carotid bruit, JVD, lymphadenopathy, thyromegaly Respiratory exam: PRESENT: clear to auscultation yadi. ABSENT: rales, rhonchi, wheezes Cardiovascular exam: PRESENT: RRR. ABSENT: diastolic murmur, rubs, systolic murmur Pulses: PRESENT: normal dorsalis pedis pul Vascular exam: PRESENT: normal capillary refill GI/Abdominal exam: PRESENT: normal bowel sounds, soft. ABSENT: distended, guarding, mass, organolmegaly, rebound, tenderness Rectal exam: PRESENT: deferred Extremities exam: PRESENT: full ROM. ABSENT: calf tenderness, clubbing, pedal edema Neurological exam: PRESENT: alert, awake, oriented to person, oriented to place, oriented to time, oriented to situation, CN II-XII grossly intact. ABSENT: motor sensory deficit Psychiatric exam: PRESENT: appropriate affect, normal mood. ABSENT: homicidal ideation, suicidal ideation Skin exam: PRESENT: dry, intact, warm. ABSENT: cyanosis, rash Results Laboratory Results: 05/14/20 09:28 05/14/20 07:10 05/04/20 05/04/20 15:28 15:28 Troponin I < 0.012 NT-Pro-B Natriuret Pep 8850 H Impressions: Abdomen/Pelvis CT 05/04/20 16:25 IMPRESSION: 1. Multiple innumerable pulmonary nodules in the visualized lungs. Considerations for these findings include metastatic disease in view of the patient's given history. Very small right pleural effusion. 2. Hepatomegaly and splenomegaly. There are multiple various sized hypoattenuated hepatic lesions probably represent metastatic disease. The possibility of splenic lesions not entirely excluded. 3. Large soft tissue mass in the head of the pancreas which extends into the luz hepatis and portacaval regions probably consistent with the patient's known history of pancreatic neoplasm with associated lymphadenopathy. Intrahepatic biliary dilatation is suggested with soft tissue density within the vessels may represent tumor thrombus. 4. Prominent retroperitoneal lymphadenopathy. 5. The patient's hardware obscures detail somewhat in the abdomen and pelvic region. 6. Ill-defined soft tissue mass in the anterior subcutaneous tissues of the lower abdomen. If surgery has been performed, this may be on a postsurgical basis, if no history of surgery, considerations for this finding includes metastatic disease. 7. Additional findings as above. Chest X-Ray 05/12/20 00:00 IMPRESSION: No acute cardiopulmonary process. Assessment & Plan - Diagnosis (1) Dehydration Is this a current diagnosis for this admission?: Yes Plan: Improved (2) Hypotension Qualifiers: Hypotension type: orthostatic hypotension Qualified Code(s): I95.1 - Orthostatic hypotension Is this a current diagnosis for this admission?: Yes Plan: Hopeful that blood pressure is a little bit better and may be dopamine can be weaned (3) Adenocarcinoma of pancreas, stage 4 Is this a current diagnosis for this admission?: Yes Plan: No further therapy for now (4) Stomatitis and mucositis Is this a current diagnosis for this admission?: Yes Plan: Continue supportive care - Time Time Spent with patient: 15-24 minutes
--- NOTE | 2020-05-15 13:22 | PDOC PROGRESS REPORT ---
Subjective Progress Note for:: 05/15/20 Subjective:: The patient is sleeping soundly. It took a bit to wake her up. She is mildly dysarthric again but her mouth is extremely dry and I think this is primarily responsible. She does have some focus and concentration issues but I believe this is because of the overwhelming clinical issues. She has several things ordered. She has a saliva substitute on her bedside table. She states that the Magic mouthwash is only partially helpful. Reason For Visit: YESSENIA,DEHYDRATION Physical Exam Vital Signs: Temp Pulse Resp BP Pulse Ox 97.5 F 75 15 146/87 H 99 05/15/20 10:00 05/15/20 12:00 05/15/20 07:33 05/15/20 12:00 05/15/20 07:33 Intake & Output 05/14/20 05/15/20 05/16/20 06:59 06:59 06:59 Intake Total 458 1738 220 Output Total 350 725 Balance 108 1013 220 Weight 88.8 kg 87.2 kg General appearance: PRESENT: no acute distress, cooperative, well-developed, other - I woke her from sleep so she is still a little groggy. Head exam: PRESENT: atraumatic, normocephalic Ear exam: PRESENT: normal external ear exam. ABSENT: bleeding, drainage Mouth exam: PRESENT: dry mucosa, other - Extremely dry mucosa with ch-colored crusty areas noted in the cheeks and under the tongue. Respiratory exam: PRESENT: rales, symmetrical, unlabored, other - Decreased inspiratory phase. ABSENT: rhonchi, tachypnea, wheezes Cardiovascular exam: PRESENT: RRR, +S1, +S2. ABSENT: bradycardia, diastolic m urmur, irregular rhythm, systolic murmur, tachycardia GI/Abdominal exam: PRESENT: normal bowel sounds, soft, tenderness. ABSENT: guarding Extremities exam: PRESENT: pedal edema, +1 edema Neurological exam: PRESENT: alert, awake, oriented to person, oriented to place, oriented to situation Psychiatric exam: PRESENT: flat affect. ABSENT: agitated, anxious Focused psych exam: ABSENT: delusional, paranoid, restlessness Results Laboratory Results: 05/14/20 09:28 05/14/20 07:10 05/04/20 05/04/20 15:28 15:28 Troponin I < 0.012 NT-Pro-B Natriuret Pep 8850 H Impressions: Abdomen/Pelvis CT 05/04/20 16:25 IMPRESSION: 1. Multiple innumerable pulmonary nodules in the visualized lungs. Considerations for these findings include metastatic disease in view of the patient's given history. Very small right pleural effusion. 2. Hepatomegaly and splenomegaly. There are multiple various sized h ypoattenuated hepatic lesions probably represent metastatic disease. The possibility of splenic lesions not entirely excluded. 3. Large soft tissue mass in the head of the pancreas which extends into the luz hepatis and portacaval regions probably consistent with the patient's known history of pancreatic neoplasm with associated lymphadenopathy. Intrahepatic biliary dilatation is suggested with soft tissue density within the vessels may represent tumor thrombus. 4. Prominent retroperitoneal lymphadenopathy. 5. The patient's hardware obscures detail somewhat in the abdomen and pelvic region. 6. Ill-defined soft tissue mass in the anterior subcutaneous tissues of the lower abdomen. If surgery has been performed, this may be on a postsurgical basis, if no history of surgery, considerations for this finding includes metastatic disease. 7. Additional findings as above. Chest X-Ray 05/12/20 00:00 IMPRESSION: No acute cardiopulmonary process. Assessment and Plan - Diagnosis (1) Acute respiratory failure with hypoxia Is this a current diagnosis for this admission?: Yes Plan: Remains on 5 L nasal cannula. (2) Adenocarcinoma of pancreas, stage 4 Is this a current diagnosis for this admission?: Yes Plan: I did talk to the patient's daughter Alice and had a 45 to 50-minute conversation. We touch base on many issues. The one thing I want to make sure is that she was aware of the actual tumor burden for her mother. There are multiple pulmonary nodules that could be metastatic disease. The liver has several areas consistent with tumor. 1 of the larger lesions is 7.4 cm in diameter. There is a large soft tissue mass at the head of the pancreas extending into the luz hepatis and portacaval region. There is some intrahepatic biliary ductal dilatation and the suggestion that the tumor may be extending into the portal veins. There is a heterogeneous appearance to the spleen. There is an extensive soft tissue mass surrounding the inferior vena cava and a bdominal aorta with a maximum diameter of approximately 7.3 cm. Right and left renal veins are also involved. There is a spiculated mass in the anterior subcutaneous tissue of the lower abdomen that could be related to a previous surgery. Explained to her that realistically there is nothing of any treatment that reverses this. She did not tolerate chemotherapy and so the likelihood of chemotherapy slowing the progress of the malignancy is negligible. Because of the diffuse area of metastases radiation therapy is not practical. I had a very joyce discussion with the patient's daughter. I told her that my recommendation would be hospice and this is if we can get her off of the dopamine. If we can get her off the dopamine then comfort measures would be reasonable. It really depends on how low the blood pressure goes off of the dopamine. I do know they want to get her home. I told her that we would start to decrease the dopamine drip and accept a lower blood pressure than what we would usually. If the patient is asymptomatic with a blood pressure of 90 that would be acceptable. Unfortunately if the patient moves and becomes very orthostatic we would have to increase the dopamine again. The patient's legs are starting to swell more from the small amount of fluid she is getting. Boluses of fluid would not be practical. I may slow the fluid to ensure patency of her Port-A-Cath. (3) Hypotension Qualifiers: Hypotension type: unspecified hypotension type Qualified Code(s): I95.9 - Hypotension, unspecified Is this a current diagnosis for this admission?: Yes Plan: Likely related to the malignancy. See discussion above. (4) Stomatitis and mucositis Is this a current diagnosis for this admission?: Yes Plan: Oral mucosa is extremely dry. She has a saliva substitute as well as Magic mouthwash and Peridex. The nurses report that she does not always participate in the regimen available. (5) YESSENIA (acute kidney injury) Is this a current diagnosis for this admission?: Yes Plan: Renal function currently back to normal. We will continue to monitor. (6) Elevated transaminase level Is this a current diagnosis for this admission?: Yes Plan: No laboratory studies today will recheck tomorrow. Enzymes were elevated and the alkaline phosphatase continue to increase. (7) Diarrhea Qualifiers: Diarrhea type: unspecified type Qualified Code(s): R19.7 - Diarrhea, uns pecified Is this a current diagnosis for this admission?: Yes Plan: Appears controlled at this time. Per my discussion with the patient's daughter loperamide has not worked for her in the past. I will discontinue the loperamide and continue the Lomotil and monitor. (8) Anemia Qualifiers: Anemia type: iron deficiency Iron deficiency anemia type: unspecified iron deficiency Qualified Code(s): D50.9 - Iron deficiency anemia, unspecified Is this a current diagnosis for this admission?: Yes Plan: Hemoglobin was stable yesterday we will recheck labs tomorrow. (9) Hyponatremia Is this a current diagnosis for this admission?: Yes Plan: Serum sodium has remained in the 130s. Recheck labs tomorrow. (10) CAD (coronary artery disease) Qualifiers: Coronary Disease-Associated Artery/Lesion type: [place] artery [place] vs. transplanted heart: [place] heart Associated angina: without angina Qualified Code(s): I25.10 - Atherosclerotic heart disease of [place] coronary artery without angina pectoris Is this a current diagnosis for this admission?: Yes Plan: Asymptomatic at this time. (11) Hypercholesterolemia Is this a current diagnosis for this admission?: Yes Plan: Statin therapy on hold (12) Dehydration Is this a current diagnosis for this admission?: Yes Plan: The patient overall is not dehydrated. She is third spacing fluid with her low albumin. Her intravascular volume may be low but it is difficult to correct considering her overall state. (13) Leukocytosis Qualifiers: Leukocytosis type: unspecified Qualified Code(s): D72.829 - Elevated white blood cell count, unspecified Is this a current diagnosis for this admission?: Yes Plan: The 21,000 white count was actually from . Yesterday's was 19,000. We will recheck her white blood cell count tomorrow. No clear evidence of infection. It certainly could be her malignancy. (14) Hyperglycemia due to diabetes mellitus Is this a current diagnosis for this admission?: Yes Plan: Continue Accu-Cheks and sliding scale. (15) Thrombocytopenia Is this a current diagnosis for this admission?: Yes Plan: Recheck platelets tomorrow. If they continue to trend down will need to stop the subcutaneous heparin. - Plan Summary Summary: 05/15/2020 I spent 45 to 50 minutes on the phone with her daughter Alice. - Time Time Spent with patient: 35 or more minutes - Because of visiting limitations and need to discuss the patient's condition with her daughter and this was over a 45-minute phone call in addition to the bedside encounter. Medications reviewed and adjusted accordingly: Yes Anticipated Discharge Disposition: Undecided Anticipated Discharge Timeframe: Unknown
[2020-05-15] MEDS: MELATONIN 5 MG TABLET PO SCH (21:34)
[2020-05-15] MEDS: FAMOTIDINE INJ/PF 20 MG/2 ML SDV IV SCH (21:34)
[2020-05-16] MEDS: INSULIN REG, HUMAN 100 UNIT/ML 3 ML VIAL (PYX) SUBCUT SCH ×5 (00:32→21:42)
[2020-05-16] MEDS: DOPAMINE HCL/DEXTROSE 5%-WATER 800 MG/250 ML RTUINJ IV PRN (04:16)
[2020-05-16] MEDS: LEVOTHYROXINE SODIUM 0.15 MG TABLET PO SCH (06:01)
[2020-05-16] MEDS: PANTOPRAZOLE SODIUM 40 MG TABLET.DR PO SCH ×2 (06:01→16:43)
[2020-05-16] MEDS: MIDODRINE HCL 5 MG TABLET PO SCH ×3 (06:13→16:43)
[2020-05-16 06:45] LABS: ALBUMIN 2.2 g/dL (3.5-5.0); ALKALINE PHOSPHATASE 655 U/L (38-126); ANION GAP 8 (5-19); ASPARTATE AMINO TRANSFERASE 97 U/L (14-36); BILIRUBIN,DIRECT 0.9 mg/dL (0.0-0.4); BILIRUBIN,TOTAL 1.2 mg/dL (0.2-1.3); BLOOD UREA NITROGEN 22 mg/dL (7-20); CALCIUM 7.6 mg/dL (8.4-10.2); CARBON DIOXIDE 18 mmol/L (22-30); CHLORIDE 110 mmol/L (98-107); GLUCOSE 135 mg/dL (75-110); TOTAL PROTEIN 5.4 g/dL (6.3-8.2)
[2020-05-16 07:59] LABS: HEMATOCRIT 26.3 % (36.0-47.0); HEMOGLOBIN 8.7 g/dL (12.0-15.5); MEAN CORPUSCULAR HEMOGLOBIN 23.4 pg (27.0-33.4); MEAN CORPUSCULAR VOLUME 71 fl (80-97); RED BLOOD COUNT 3.72 10^6/uL (3.72-5.28); RED CELL DISTRIBUTION WIDTH 19.9 % (11.5-14.0); WHITE BLOOD COUNT 15.7 10^3/uL (4.0-10.5)
[2020-05-16] MEDS: SUCRALFATE 1 GM TABLET PO SCH ×4 (08:03→21:50)
[2020-05-16 08:31] LABS: PLATELET COUNT 63 10^3/uL (150-450)
[2020-05-16 08:34] LABS: ABSOLUTE LYMPHOCYTES# (MANUAL) 1.4 10^3/uL (0.5-4.7); ABSOLUTE MONOCYTES # (MANUAL) 0.5 10^3/uL (0.1-1.4); BAND NEUTROPHILS % (MANUAL) 2 % (3-5); BASOPHILS % (MANUAL) 0 % (0-2); EOSINOPHILS % (MANUAL) 0 % (0-6); LYMPHOCYTES % (MANUAL) 9 % (13-45); MONOCYTES % (MANUAL) 3 % (3-13); SEGMENTED NEUTROPHILS % (MAN) 86 % (42-78); TOTAL CELLS COUNTED 100
[2020-05-16 08:35] LABS: ANISOCYTOSIS 2+; PLATELET COMMENT DECREASED; POLYCHROMASIA SLIGHT
[2020-05-16] MEDS: FLUTICASONE NASAL SPRAY 50 MCG/SPRY 120 SPRAY/16 GM NASL SCH ×2 (09:29→17:01)
[2020-05-16] MEDS: CLOPIDOGREL BISULFATE 75 MG TABLET PO SCH (09:29)
[2020-05-16] MEDS: POTASSIUM CHLORIDE 10 MEQ TABLET.ER PO SCH (09:29)
[2020-05-16] MEDS: DIPHENOXYLATE HCL/ATROP SULF 2.5-0.025 MG TABLET PO SCH (09:29)
[2020-05-16] MEDS: BACLOFEN 10 MG TABLET PO SCH (09:29)
[2020-05-16] MEDS: GABAPENTIN 300 MG CAPSULE PO SCH (09:30)
[2020-05-16] MEDS: NYSTATIN/DEXAMETH/DIPHEN SUSP 120 ML PO SCH ×4 (09:30→22:00)
[2020-05-16] MEDS: RINGERS SOLUTION,LACTATED 1,000 ML IV PRN (14:03)
--- NOTE | 2020-05-16 20:05 | PDOC PROGRESS REPORT ---
Subjective Progress Note for:: 05/16/20 Subjective:: The patient is resting in bed. She is wondering about the dopamine drip and the taper. Reason For Visit: YESSENIA,DEHYDRATION Physical Exam Vital Signs: Temp Pulse Resp BP Pulse Ox 97.1 F 79 20 117/65 98 05/16/20 15:51 05/16/20 18:00 05/16/20 15:51 05/16/20 18:00 05/16/20 15:51 Intake & Output 05/15/20 05/16/20 05/17/20 06:59 06:59 06:59 Intake Total 1738 3065 1360 Output Total 725 800 575 Balance 1013 2265 785 Weight 87.2 kg 82.8 kg General appearance: PRESENT: mild distress, well-developed Head exam: PRESENT: atraumatic, normocephalic Respiratory exam: PRESENT: clear to auscultation yadi, symmetrical, unlabored. ABSENT: rales, rhonchi, tachypnea, wheezes Cardiovascular exam: PRESENT: RRR, +S1, +S2. ABSENT: bradycardia, diastolic murmur, irregular rhythm, systolic murmur, tachycardia GI/Abdominal exam: PRESENT: distended, normal bowel sounds, soft, tenderness Rectal exam: PRESENT: deferred Gentrourinary exam: ABSENT: indwelling catheter Neurological exam: PRESENT: alert, awake, oriented to person, oriented to place, oriented to situation. ABSENT: altered Psychiatric exam: ABSENT: agitated, anxious Results Laboratory Results: 05/16/20 07:45 05/16/20 06:13 05/16/20 05/16/20 05/16/20 06:13 06:13 07:45 WBC Cancelled 15.7 H RBC Cancelled 3.72 Hgb Cancelled 8.7 L Hct Cancelled 26.3 L MCV Cancelled 71 L MCH Cancelled 23.4 L MCHC Cancelled 33.0 RDW Cancelled 19.9 H Plt Count Cancelled 63 L Seg Neutrophils % Cancelled Not Reportable Sodium 136.2 L Potassium 4.0 Chloride 110 H Carbon Dioxide 18 L Anion Gap 8 BUN 22 H Creatinine 0.82 Est GFR ( Amer) > 60 Glucose 135 H Calcium 7.6 L Magnesium 1.7 Total Bilirubin 1.2 AST 97 H Alkaline Phosphatase 655 H Total Protein 5.4 L Albumin 2.2 L 05/04/20 05/04/20 15:28 15:28 Troponin I < 0.012 NT-Pro-B Natriuret Pep 8850 H Impressions: Abdomen/Pelvis CT 05/04/20 16:25 IMPRESSION: 1. Multiple innumerable pulmonary nodules in the visualized lungs. Considerations for these findings include metastatic disease in view of the patient's given history. Very small right pleural effusion. 2. Hepatomegaly and splenomegaly. There are multiple various sized hypoattenuated hepatic lesions probably represent metastatic disease. The possibility of splenic lesions not entirely excluded. 3. Large soft tissue mass in the head of the pancreas which extends into the luz hepatis and portacaval regions probably consistent with the patient's known history of pancreatic neoplasm with associated lymphadenopathy. Intrahepatic biliary dilatation is suggested with soft tissue density within the vessels may represent tumor thrombus. 4. Prominent retroperitoneal lymphadenopathy. 5. The patient's hardware obscures detail somewhat in the abdomen and pelvic region. 6. Ill-defined soft tissue mass in the anterior subcutaneous tissues of the lower abdomen. If surgery has been performed, this may be on a postsurgical basis, if no history of surgery, considerations for this finding includes me tastatic disease. 7. Additional findings as above. Chest X-Ray 05/12/20 00:00 IMPRESSION: No acute cardiopulmonary process. Assessment and Plan - Diagnosis (1) Acute respiratory failure with hypoxia Is this a current diagnosis for this admission?: Yes Plan: still requires 4-5 LPM NC (2) Adenocarcinoma of pancreas, stage 4 Is this a current diagnosis for this admission?: Yes Plan: 05/15/2020 I did talk to the patient's daughter Alice and had a 45 to 50-minute conversation. We touch base on many issues. The one thing I want to make sure is that she was aware of the actual tumor burden for her mother. There are multiple pulmonary nodules that could be metastatic disease. The l iver has several areas consistent with tumor. 1 of the larger lesions is 7.4 cm in diameter. There is a large soft tissue mass at the head of the pancreas extending into the luz hepatis and portacaval region. There is some intrahepatic biliary ductal dilatation and the suggestion that the tumor may be extending into the portal veins. There is a heterogeneous appearance to the spleen. There is an extensive soft tissue mass surrounding the inferior vena cava and abdominal aorta with a maximum diameter of approximately 7.3 cm. Right and left renal veins are also involved. There is a spiculated mass in the anterior subcutaneous tissue of the lower abdomen that could be related to a previous surgery. Explained to her that realistically there is nothing of any treatment that reverses this. She did not tolerate chemotherapy and so the likelihood of chemotherapy slowing the progress of the malignancy is negligible. Because of the diffuse area of metastases radiation therapy is not practical. I had a very joyce discussion with the patient's daughter. I told her that my recommendation would be hospice and this is if we can get her off of the dopamine. If we can get her off the dopamine then comfort measures would be reasonable. It really depends on how low the blood pressure goes off of the dopamine. I do know they want to get her home. I told her that we would start to decrease the dopamine drip and accept a lower blood pressure than what we would usually. If the tatiana ent is asymptomatic with a blood pressure of 90 that would be acceptable. Unfortunately if the patient moves and becomes very orthostatic we would have to increase the dopamine again. The patient's legs are starting to swell more from the small amount of fluid she is getting. Boluses of fluid would not be practical. I may slow the fluid to ensure patency of her Port-A-Cath. 05/16/2020 I asked the patient if anyone has reviewed the CT results from 05/04/20 with the patient since she let me know that she had a copy of the report. I reviewed the report line by line and the patient clearly did not understand the extent of her disease. She was quite shocked and taken aback. We discussed the realistic options for care. She wants to be with family and so home hospice makes the most sense. She was wondering how long the dopamine taper can take. I don't believe that she really understands her situation. (3) Hypotension Qualifiers: Hypotension type: unspecified hypotension type Qualified Code(s): I95.9 - Hypotension, unspecified Is this a current diagnosis for this admission?: Yes Plan: midodrine increased to 10mg tid. (4) Stomatitis and mucositis Is this a current diagnosis for this admission?: Yes Plan: still with very dry mouth and dry placques (5) YESSENIA (acute kidney injury) Is this a current diagnosis for this admission?: Yes Plan: resolved (6) Elevated transaminase level Is this a current diagnosis for this admission?: Yes Plan: elevated but stable. Only the alk phos continues to climb. (7) Diarrhea Qualifiers: Diarrhea type: unspecified type Qualified Code(s): R19.7 - Diarrhea, unspecified Is this a current diagnosis for this admission?: Yes Plan: improved. continue lomotil (8) Anemia Qualifiers: Anemia type: iron deficiency Iron deficiency anemia type: unspecified iron deficiency Qualified Code(s): D50.9 - Iron deficiency anemia, unspecified Is this a current diagnosis for this admission?: Yes Plan: Hemoglobin was stable yesterday we will recheck labs tomorrow. (9) Hyponatremia Is this a current diagnosis for this admission?: Yes Plan: Serum sodium has remained in the 130s. Recheck labs tomorrow. (10) CAD (coronary artery disease) Qualifiers: Coronary Disease-Associated Artery/Lesion type: [place] artery [place] vs. transplanted heart: [place] heart Associated angina: without angina Qualified Code(s): I25.10 - Atherosclerotic heart disease of [place] coronary artery without angina pectoris Is this a current diagnosis for this admission?: Yes Plan: Asymptomatic at this time. (11) Hypercholesterolemia Is this a current diagnosis for this admission?: Yes Plan: Statin therapy on hold (12) Dehydration Is this a current diagnosis for this admission?: Yes Plan: still with IV fluids. Will slow the rate since she seems to be third spacing. (13) Leukocytosis Qualifiers: Leukocytosis type: unspecified Qualified Code(s): D72.829 - Elevated white blood cell count, unspecified Is this a current diagnosis for this admission?: Yes Plan: down to 15K (14) Hyperglycemia due to diabetes mellitus Is this a current diagnosis for this admission?: Yes Plan: continue accuchecks and sliding scale (15) Thrombocytopenia Is this a current diagnosis for this admission?: Yes Plan: platelets down to 63K. Possibly related to the malignancy - Plan Summary Summary: 05/15/2020 I spent 45 to 50 minutes on the phone with her daughter Alice. - Time Time Spent with patient: 35 or more minutes Medications reviewed and adjusted accordingly: Yes Anticipated Discharge Disposition: Home with Hospice Anticipated Discharge Timeframe: within 72 hours
[2020-05-16] MEDS: MELATONIN 5 MG TABLET PO SCH (21:50)
[2020-05-16] MEDS: FAMOTIDINE INJ/PF 20 MG/2 ML SDV IV SCH (21:51)
[2020-05-17] MEDS: DOPAMINE HCL/DEXTROSE 5%-WATER 800 MG/250 ML RTUINJ IV PRN (01:01)
[2020-05-17] MEDS: MIDODRINE HCL 5 MG TABLET PO SCH ×3 (06:13→18:20)
[2020-05-17] MEDS: LEVOTHYROXINE SODIUM 0.15 MG TABLET PO SCH (06:14)
[2020-05-17] MEDS: PANTOPRAZOLE SODIUM 40 MG TABLET.DR PO SCH ×2 (06:14→18:21)
[2020-05-17] MEDS: INSULIN REG, HUMAN 100 UNIT/ML 3 ML VIAL (PYX) SUBCUT SCH ×4 (08:33→21:50)
[2020-05-17] MEDS: SUCRALFATE 1 GM TABLET PO SCH ×4 (11:02→22:06)
[2020-05-17] MEDS: POTASSIUM CHLORIDE 10 MEQ TABLET.ER PO SCH (11:04)
[2020-05-17] MEDS: FLUTICASONE NASAL SPRAY 50 MCG/SPRY 120 SPRAY/16 GM NASL SCH ×2 (11:04→18:16)
[2020-05-17] MEDS: BACLOFEN 10 MG TABLET PO SCH (11:04)
[2020-05-17] MEDS: CLOPIDOGREL BISULFATE 75 MG TABLET PO SCH (11:04)
[2020-05-17] MEDS: GABAPENTIN 300 MG CAPSULE PO SCH (11:04)
[2020-05-17] MEDS: NYSTATIN/DEXAMETH/DIPHEN SUSP 120 ML PO SCH ×4 (11:05→22:05)
[2020-05-17] MEDS: RINGERS SOLUTION,LACTATED 1,000 ML IV PRN (11:09)
--- NOTE | 2020-05-17 12:48 | PDOC PROGRESS REPORT ---
Subjective Progress Note for:: 05/17/20 Subjective:: No acute events overnight, yesterday hospitalist team had a long discussion with patient and family. They were very appreciative with the discussion. Strong recommendation for hospice made. They are now considering it. Trying to get the dopamine lowered. Reason For Visit: YESSENIA,DEHYDRATION Physical Exam Vital Signs: Temp Pulse Resp BP Pulse Ox 97.5 F 90 18 122/70 92 05/17/20 00:40 05/17/20 07:00 05/17/20 00:40 05/17/20 06:00 05/17/20 00:40 Intake & Output 05/16/20 05/17/20 05/18/20 06:59 06:59 06:59 Intake Total 3065 1891 1128 Output Total 800 1075 Balance 2265 816 1128 Weight 82.8 kg 92.3 kg General appearance: PRESENT: no acute distress, well-developed, well-nourished Head exam: PRESENT: atraumatic, normocephalic Eye exam: PRESENT: conjunctiva pink, EOMI, PERRLA. ABSENT: scleral icterus Ear exam: PRESENT: normal external ear exam Mouth exam: PRESENT: moist, tongue midline Neck exam: ABSENT: carotid bruit, JVD, lymphadenopathy, thyromegaly Respiratory exam: PRESENT: clear to auscultation yadi. ABSENT: rales, rhonchi, wheezes Cardiovascular exam: PRESENT: RRR. ABSENT: diastolic murmur, rubs, systolic murmur Pulses: PRESENT: normal dorsalis pedis pul Vascular exam: PRESENT: normal capillary refill GI/Abdominal exam: PRESENT: normal bowel sounds, soft. ABSENT: distended, guarding, mass, organolmegaly, rebound, tenderness Rectal exam: PRESENT: deferred Extremities exam: PRESENT: full ROM. ABSENT: calf tenderness, clubbing, pedal edema Neurological exam: PRESENT: alert, awake, oriented to person, oriented to place, oriented to time, oriented to situation, CN II-XII grossly intact. ABSENT: motor sensory deficit Psychiatric exam: PRESENT: appropriate affect, normal mood. ABSENT: homicidal ideation, suicidal ideation Skin exam: PRESENT: dry, intact, warm. ABSENT: cyanosis, rash Results Laboratory Results: 05/16/20 07:45 05/16/20 06:13 05/04/20 05/04/20 15:28 15:28 Troponin I < 0.012 NT-Pro-B Natriuret Pep 8850 H Impressions: Abdomen/Pelvis CT 05/04/20 16:25 IMPRESSION: 1. Multiple innumerable pulmonary nodules in the visualized lungs. Considerations for these findings include metastatic disease in view of the patient's given history. Very small right pleural effusion. 2. Hepatomegaly and splenomegaly. There are multiple various sized hypoattenuated hepatic lesions probably represent metastatic disease. The possibility of splenic lesions not entirely excluded. 3. Large soft tissue mass in the head of the pancreas which extends into the luz hepatis and portacaval regions probably consistent with the patient's known history of pancreatic neoplasm with associated lymphadenopathy. Intrahepatic biliary dilatation is suggested with soft tissue density within the vessels may represent tumor thrombus. 4. Prominent retroperitoneal lymphadenopathy. 5. The patient's hardware obscures detail somewhat in the abdomen and pelvic region. 6. Ill-defined soft tissue mass in the anterior subcutaneous tissues of the lower abdomen. If surgery has been performed, this may be on a postsurgical basis, if no history of surgery, considerations for this finding includes metastatic disease. 7. Additional findings as above. Chest X-Ray 05/12/20 00:00 IMPRESSION: No acute cardiopulmonary process. Assessment & Plan - Diagnosis (1) Dehydration Is this a current diagnosis for this admission?: Yes Plan: Continue on hydration (2) Hypotension Qualifiers: Hypotension type: unspecified hypotension type Qualified Code(s): I95.9 - Hypotension, unspecified Is this a current diagnosis for this admission?: Yes Plan: Discussed extensively with Dr. Rizzo, may be disease surrounding the aorta that is making it difficult for her to mount a pressure response. That might be why they are not able to get off dopamine. It is being reduced now. (3) Adenocarcinoma of pancreas, stage 4 Is this a current diagnosis for this admission?: Yes Plan: No treatment planned, patient is too weak (4) Stomatitis and mucositis Is this a current diagnosis for this admission?: Yes Plan: Improving - Time Time Spent with patient: 35 or more minutes
[2020-05-17] MEDS: MELATONIN 5 MG TABLET PO SCH (22:01)
[2020-05-17] MEDS: FAMOTIDINE INJ/PF 20 MG/2 ML SDV IV SCH (22:05)
[2020-05-18] MEDS: DOPAMINE HCL/DEXTROSE 5%-WATER 800 MG/250 ML RTUINJ IV PRN (02:52)
[2020-05-18] MEDS: MIDODRINE HCL 5 MG TABLET PO SCH ×3 (06:26→17:05)
[2020-05-18] MEDS: LEVOTHYROXINE SODIUM 0.15 MG TABLET PO SCH (06:27)
[2020-05-18] MEDS: PANTOPRAZOLE SODIUM 40 MG TABLET.DR PO SCH ×2 (06:27→17:04)
[2020-05-18] MEDS: RINGERS SOLUTION,LACTATED 1,000 ML IV PRN (06:28)
--- NOTE | 2020-05-18 07:49 | PDOC PROGRESS REPORT ---
Subjective Progress Note for:: 05/18/20 Subjective:: Patient states that she feels about the same. Some diarrhea, but still improved. She wants to go home, but wants to make sure she is safe at home, without the blood pressure support medications. She states that she did not realize how extensive the cancer was, despite the fact that I reviewed all this with her AND gave her a copy of the most recent CT report to share with her family. She still has a dry mouth but is trying to eat and drink as much as possible. Reason For Visit: YESSENIA,DEHYDRATION Physical Exam Vital Signs: Temp Pulse Resp BP Pulse Ox 98.1 F 72 16 116/54 L 100 05/18/20 04:01 05/18/20 07:00 05/18/20 04:01 05/18/20 04:01 05/18/20 04:01 Intake & Output 05/17/20 05/18/20 05/19/20 06:59 06:59 06:59 Intake Total 1891 3095 Output Total 1075 630 Balance 816 2465 Weight 92.3 kg 96.5 kg General appearance: PRESENT: no acute distress, obese Head exam: PRESENT: normocephalic Eye exam: PRESENT: EOMI Mouth exam: PRESENT: dry mucosa Respiratory exam: PRESENT: unlabored Neurological exam: PRESENT: alert, awake Psychiatric exam: PRESENT: appropriate affect Skin exam: PRESENT: normal color Results Laboratory Results: 05/16/20 07:45 05/16/20 06:13 05/04/20 05/04/20 15:28 15:28 Troponin I < 0.012 NT-Pro-B Natriuret Pep 8850 H Impressions: Abdomen/Pelvis CT 05/04/20 16:25 IMPRESSION: 1. Multiple innumerable pulmonary nodules in the visualized lungs. Considerations for these findings include metastatic disease in view of the patient's given history. Very small right pleural effusion. 2. Hepatomegaly and splenomegaly. There are multiple various sized hypoattenuated hepatic lesions probably represent metastatic disease. The possibility of splenic lesions not entirely excluded. 3. Large soft tissue mass in the head of the pancreas which extends into the luz hepatis and portacaval regions probably consistent with the patient's known history of pancreatic neoplasm with associated lymphadenopathy. Intrahepatic biliary dilatation is suggested with soft tissue density within the vessels may represent tumor thrombus. 4. Prominent retroperitoneal lymphadenopathy. 5. The patient's hardware obscures detail somewhat in the abdomen and pelvic region. 6. Ill-defined soft tissue mass in the anterior subcutaneous tissues of the lower abdomen. If surgery has been performed, this may be on a postsurgical basis, if no history of surgery, considerations for this finding includes metastatic disease. 7. Additional findings as above. Chest X-Ray 05/12/20 00:00 IMPRESSION: No acute cardiopulmonary process. Assessment & Plan - Diagnosis (1) Dehydration Is this a current diagnosis for this admission?: Yes (2) Hypotension Qualifiers: Hypotension type: unspecified hypotension type Qualified Code(s): I95.9 - Hypotension, unspecified Is this a current diagnosis for this admission?: Yes Plan: Will continue to try to wean the Dopamine. (3) Pancreatic cancer Qualifiers: Pancreatic malignancy location: body of pancreas Qualified Code(s): C25.1 - Malignant neoplasm of body of pancreas Is this a current diagnosis for this admission?: Yes Plan: Patient is finally coming to the realization that her cancer is growing faster than we have been able to treat it. She is now a DNR and has requested Hospice services to go home. Hopefully, this can happen within the next day or 2. (4) Stomatitis and mucositis Is this a current diagnosis for this admission?: Yes Plan: Continue current supportive medications. Duragesic is at 50 mcg. Will continue. - Time Time Spent with patient: 15-24 minutes
[2020-05-18] MEDS: INSULIN REG, HUMAN 100 UNIT/ML 3 ML VIAL (PYX) SUBCUT SCH ×4 (08:17→22:24)
[2020-05-18] MEDS: SUCRALFATE 1 GM TABLET PO SCH ×4 (09:14→22:25)
[2020-05-18] MEDS: BACLOFEN 10 MG TABLET PO SCH (09:14)
[2020-05-18] MEDS: CLOPIDOGREL BISULFATE 75 MG TABLET PO SCH (09:15)
[2020-05-18] MEDS: FENTANYL 50 MCG/HR PATCH.TD72 TD SCH (09:15)
[2020-05-18] MEDS: FLUTICASONE NASAL SPRAY 50 MCG/SPRY 120 SPRAY/16 GM NASL SCH ×2 (09:15→17:01)
[2020-05-18] MEDS: GABAPENTIN 300 MG CAPSULE PO SCH (09:15)
[2020-05-18] MEDS: POTASSIUM CHLORIDE 10 MEQ TABLET.ER PO SCH (09:15)
[2020-05-18] MEDS: NYSTATIN/DEXAMETH/DIPHEN SUSP 120 ML PO SCH ×5 (09:15→22:25)
--- NOTE | 2020-05-18 11:10 | PDOC PROGRESS REPORT ---
Subjective Progress Note for:: 05/17/20 Subjective:: Family meeting with and three daughters at the patient's bedside Reason For Visit: YESSENIA,DEHYDRATION Physical Exam Vital Signs: Temp Pulse Resp BP Pulse Ox 98.1 F 87 18 104/51 L 97 05/18/20 10:00 05/18/20 10:45 05/18/20 07:56 05/18/20 10:45 05/18/20 07:56 Intake & Output 05/17/20 05/18/20 05/19/20 06:59 06:59 06:59 Intake Total 1891 3095 41 Output Total 1075 630 Balance 816 2465 41 Weight 92.3 kg 96.5 kg General appearance: PRESENT: no acute distress Cardiovascular exam: PRESENT: RRR, +S1, +S2 GI/Abdominal exam: PRESENT: distended, normal bowel sounds, soft, tenderness Neurological exam: PRESENT: alert, awake, oriented to place, oriented to time, oriented to situation Psychiatric exam: PRESENT: depressed, flat affect Results Laboratory Results: 05/16/20 07:45 05/16/20 06:13 05/04/20 05/04/20 15:28 15:28 Troponin I < 0.012 NT-Pro-B Natriuret Pep 8850 H Impressions: Abdomen/Pelvis CT 05/04/20 16:25 IMPRESSION: 1. Multiple innumerable pulmonary nodules in the visualized lungs. Considerations for these findings include metastatic disease in view of the patient's given history. Very small right pleural effusion. 2. Hepatomegaly and splenomegaly. There are multiple various sized hypoattenuated hepatic lesions probably represent metastatic disease. The possibility of splenic lesions not entirely excluded. 3. Large soft tissue mass in the head of the pancreas which extends into the luz hepatis and portacaval regions probably consistent with the patient's known history of pancreatic neoplasm with associated lymphadenopathy. Intrahepatic biliary dilatation is suggested with soft tissue density within the vessels may represent tumor thrombus. 4. Prominent retroperitoneal lymphadenopathy. 5. The patient's hardware obscures detail somewhat in the abdomen and pelvic region. 6. Ill-defined soft tissue mass in the anterior subcutaneous tissues of the lower abdomen. If surgery has been performed, this may be on a postsurgical basis, if no history of surgery, considerations for this finding includes metastatic disease. 7. Additional findings as above. Chest X-Ray 05/12/20 00:00 IMPRESSION: No acute cardiopulmonary process. Assessment and Plan - Diagnosis (1) Acute respiratory failure with hypoxia Is this a current diagnosis for this admission?: Yes (2) Adenocarcinoma of pancreas, stage 4 Is this a current diagnosis for this admission?: Yes (3) Hypotension Qualifiers: Hypotension type: unspecified hypotension type Qualified Code(s): I95.9 - Hypotension, unspecified Is this a current diagnosis for this admission?: Yes (4) Stomatitis and mucositis Is this a current diagnosis for this admission?: Yes (5) YESSENIA (acute kidney injury) Is this a current diagnosis for this admission?: Yes (6) Elevated transaminase level Is this a current diagnosis for this admission?: Yes (7) Diarrhea Qualifiers: Diarrhea type: unspecified type Qualified Code(s): R19.7 - Diarrhea, unspecified Is this a current diagnosis for this admission?: Yes (8) Anemia Qualifiers: Anemia type: iron deficiency Iron deficiency anemia type: unspecified iron deficiency Qualified Code(s): D50.9 - Iron deficiency anemia, unspecified Is this a current diagnosis for this admission?: Yes (9) Hyponatremia Is this a current diagnosis for this admission?: Yes (10) CAD (coronary artery disease) Qualifiers: Coronary Disease-Associated Artery/Lesion type: [place] artery [place] vs. transplanted heart: [place] heart Associated angina: without angina Qualified Code(s): I25.10 - Atherosclerotic heart disease of [place] coronary artery without angina pectoris Is this a current diagnosis for this admission?: Yes (11) Hypercholesterolemia Is this a current diagnosis for this admission?: Yes (12) Dehydration Is this a current diagnosis for this admission?: Yes (13) Leukocytosis Qualifiers: Leukocytosis type: unspecified Qualified Code(s): D72.829 - Elevated white blood cell count, unspecified Is this a current diagnosis for this admission?: Yes (14) Hyperglycemia due to diabetes mellitus Is this a current diagnosis for this admission?: Yes (15) Thrombocytopenia Is this a current diagnosis for this admission?: Yes - Plan Summary Summary: 05/15/2020 I spent 45 to 50 minutes on the phone with her daughter Alice. 05/17/2020 There was a 70 minute family meeting at the bedside. We reviewed the CT again and funneled the decision to home hospice VS inpatient. The family is encouraging home hospice. She is worried about dying at home but the family is supportive. I signed a Yellow DNR form in their presence and placed it in her chart. I will let oncology know. - Time Time Spent with patient: 35 or more minutes Anticipated Discharge Disposition: Home with Hospice Anticipated Discharge Timeframe: within 72 hours
--- NOTE | 2020-05-18 14:01 | PDOC PROGRESS REPORT ---
Subjective Progress Note for:: 05/18/20 Subjective:: Patient states that she will like to work with physical therapy to work on getting to chair. She will like to be able to go home on hospice and play with her grandchildren. She states her pain is tolerable. Still on the dopamine drip which I discussed with her that we will try to wean off while maintaining midodrine to maintain her blood pressure. Reason For Visit: YESSENIA,DEHYDRATION Physical Exam Vital Signs: Temp Pulse Resp BP Pulse Ox 98.0 F 74 18 115/52 L 94 05/18/20 11:41 05/18/20 13:46 05/18/20 11:41 05/18/20 13:47 05/18/20 11:41 Intake & Output 05/17/20 05/18/20 05/19/20 06:59 06:59 06:59 Intake Total 1891 3095 41 Output Total 1075 630 Balance 816 2465 41 Weight 92.3 kg 96.5 kg General appearance: PRESENT: no acute distress, cooperative Neck exam: ABSENT: JVD Respiratory exam: PRESENT: symmetrical, unlabored. ABSENT: accessory muscle u se, retraction, tachypnea Cardiovascular exam: PRESENT: RRR, +S1, +S2. ABSENT: tachycardia GI/Abdominal exam: PRESENT: soft. ABSENT: rebound, rigid, tenderness Neurological exam: PRESENT: alert, awake, oriented to person, oriented to place, oriented to time, oriented to situation Results Laboratory Results: 05/16/20 07:45 05/16/20 06:13 05/04/20 05/04/20 15:28 15:28 Troponin I < 0.012 NT-Pro-B Natriuret Pep 8850 H Impressions: Abdomen/Pelvis CT 05/04/20 16:25 IMPRESSION: 1. Multiple innumerable pulmonary nodules in the visualized lungs. Considerations for these findings include metastatic disease in view of the patient's given history. Very small right pleural effusion. 2. Hepatomegaly and splenomegaly. There are multiple various sized hypoattenuated hepatic lesions probably represent metastatic disease. The possibility of splenic lesions not entirely excluded. 3. Large soft tissue mass in the head of the pancreas which extends into the luz hepatis and portacaval regions probably consistent with the patient's known history of pancreatic neoplasm with associated lymphadenopathy. Intrahepatic biliary dilatation is suggested with soft tissue density within the vessels may represent tumor thrombus. 4. Prominent retroperitoneal lymphadenopathy. 5. The patient's hardware obscures detail somewhat in the abdomen and pelvic region. 6. Ill-defined soft tissue mass in the anterior subcutaneous tissues of the lower abdomen. If surgery has been performed, this may be on a postsurgical basis, if no history of surgery, considerations for this finding includes metastatic disease. 7. Additional findings as above. Chest X-Ray 05/12/20 00:00 IMPRESSION: No acute cardiopulmonary process. Assessment and Plan - Diagnosis (1) Adenocarcinoma of pancreas, stage 4 Is this a current diagnosis for this admission?: Yes Plan: 05/15/2020 I did talk to the patient's daughter Alice and had a 45 to 50-minute conversation. We touch base on many issues. The one thing I want to make sure is that she was aware of the actual tumor burden for her mother. There are multiple pulmonary nodules that could be metastatic disease. The liver has several areas consistent with tumor. 1 of the larger lesions is 7.4 cm in diameter. There is a large soft tissue mass at the head of the pancreas extending into the luz hepatis and portacaval region. There is some intrahepatic biliary ductal dilatation and the suggestion that the tumor may be extending into the portal veins. There is a heterogeneous appearance to the spleen. There is an extensive soft tissue mass surrounding the inferior vena cava and abdominal aorta with a maximum diameter of approximately 7.3 cm. Right and left renal veins are also involved. There is a spiculated mass in the anterior subcutaneous tissue of the lower abdomen that could be related to a previous surgery. Explained to her that realistically there is nothing of any treatment that reverses this. She did not tolerate chemotherapy and so the likelihood of chemotherapy slowing the progress of the malignancy is negligible. Because of the diffuse area of metastases radiation therapy is not practical. I had a very joyce discussion with the patient's daughter. I told her that my recommendation would be hospice and this is if we can get her off of the dopamine. If we can get her off the dopamine then comfort measures would be reasonable. It really depends on how low the blood pressure goes off of the dopamine. I do know they want to get her home. I told her that we would start to decrease the dopamine drip and accept a lower blood pressure than what we would usually. If the patient is asymptomatic with a blood pressure of 90 that would be acceptable. Unfortunately if the patient moves and becomes very orthostatic we would have to increase the dopamine again. The patient's legs are starting to swell more from the small amount of fluid she is getting. Boluses of fluid would not be practical. I may slow the fluid to ensure patency of her Port-A-Cath. 05/16/2020 I asked the patient if anyone has reviewed the CT results from 05/04/20 with the patient since she let me know that she had a copy of the report. I reviewed the report line by line and the patient clearly did not understand the extent of her disease. She was quite shocked and taken aback. We discussed the realistic options for care. She wants to be with family and so home hospice makes the most sense. She was wondering how long the dopamine taper can take. I don't believe that she really understands her situation. 05/18/2020 Patient's decided yesterday and decision to go home with hospice care. I have confirmed today that this is what she wants. Continue pain medications. I will have physical therapy work with her today to try to optimize her physical functioning as best as we can prior to discharge. (2) Hypotension Qualifiers: Hypotension type: unspecified hypotension type Qualified Code(s): I95.9 - Hypotension, unspecified Is this a current diagnosis for this admission?: Yes Plan: Continue midodrine 10 mg 3 times a day. We will try to wean dopamine as tolerated. Reduce dopamine drip from 4-2 this morning. Will monitor BP and further down titrate. (3) YESSENIA (acute kidney injury) Is this a current diagnosis for this admission?: Yes (4) Acute respiratory failure with hypoxia Is this a current diagnosis for this admission?: Yes (5) Dehydration Is this a current diagnosis for this admission?: Yes (6) Diarrhea Qualifiers: Diarrhea type: unspecified type Qualified Code(s): R19.7 - Diarrhea, unspecified Is this a current diagnosis for this admission?: Yes (7) Hyperglycemia due to diabetes mellitus Is this a current diagnosis for this admission?: Yes (8) Stomatitis and mucositis Is this a current diagnosis for this admission?: Yes (9) Thrombocytopenia Is this a current diagnosis for this admission?: Yes - Plan Summary Summary: 05/15/2020 I spent 45 to 50 minutes on the phone with her daughter Alice. 05/17/2020 There was a 70 minute family meeting at the bedside. We reviewed the CT again and funneled the decision to home hospice VS inpatient. The family is encouraging home hospice. She is worried about dying at home but the family is supportive. I signed a Yellow DNR form in their presence and placed it in her chart. I will let oncology know. - Time Time Spent with patient: 15-24 minutes Anticipated Discharge Disposition: Home with Hospice Anticipated Discharge Timeframe: within 36 hours
[2020-05-18] MEDS: MELATONIN 5 MG TABLET PO SCH (22:25)
[2020-05-18] MEDS: FAMOTIDINE INJ/PF 20 MG/2 ML SDV IV SCH (22:26)
[2020-05-19] MEDS: RINGERS SOLUTION,LACTATED 1,000 ML IV PRN (03:06)
[2020-05-19] MEDS: LEVOTHYROXINE SODIUM 0.15 MG TABLET PO SCH (06:39)
[2020-05-19] MEDS: MIDODRINE HCL 5 MG TABLET PO SCH ×3 (06:39→17:19)
[2020-05-19] MEDS: PANTOPRAZOLE SODIUM 40 MG TABLET.DR PO SCH ×2 (06:39→17:16)
[2020-05-19] MEDS: DOPAMINE HCL/DEXTROSE 5%-WATER 800 MG/250 ML RTUINJ IV PRN (06:41)
[2020-05-19] MEDS: SUCRALFATE 1 GM TABLET PO SCH ×4 (07:57→22:07)
[2020-05-19] MEDS: INSULIN REG, HUMAN 100 UNIT/ML 3 ML VIAL (PYX) SUBCUT SCH ×4 (08:22→22:08)
--- NOTE | 2020-05-19 08:55 | PDOC PROGRESS REPORT ---
Subjective Progress Note for:: 05/19/20 Subjective:: Patient states that she is feeling OK. No new medical issues voiced. Still is very scared about "having the rug pulled out from under me." Dopamine is down to 2 mcg today. She wants to make sure that she does not go into cardiac arrest when this is turned off before she can get home. She is in agreement with plans for discharge to Hospice but she also tells me that she does not want to at home and when the time comes, she wants to be transferred back to another facility. She asks if there are any medications that she can stop, and we discussed stopping any "preventative" medications. However, she then tells me that she wants to continue all her medications for now, even the preventive ones. Reason For Visit: YESSENIA,DEHYDRATION Physical Exam Vital Signs: Temp Pulse Resp BP Pulse Ox 97.7 F 73 19 118/64 98 05/18/20 19:32 05/19/20 06:00 05/18/20 19:32 05/19/20 06:00 05/18/20 19:32 Intake & Output 05/18/20 05/19/20 05/20/20 06:59 06:59 06:59 Intake Total 3095 3035 Output Total 630 730 Balance 2465 2305 Weight 96.5 kg 94.7 kg General appearance: PRESENT: no acute distress, obese Head exam: PRESENT: normocephalic Mouth exam: PRESENT: moist Respiratory exam: PRESENT: unlabored Extremities exam: ABSENT: pedal edema Musculoskeletal exam: PRESENT: normal inspection Neurological exam: PRESENT: alert, awake Psychiatric exam: PRESENT: appropriate affect Skin exam: PRESENT: normal color Results Laboratory Results: 05/16/20 07:45 05/16/20 06:13 05/04/20 05/04/20 15:28 15:28 Troponin I < 0.012 NT-Pro-B Natriuret Pep 8850 H Impressions: Abdomen/Pelvis CT 05/04/20 16:25 IMPRESSION: 1. Multiple innumerable pulmonary nodules in the visualized lungs. Considerations for these findings include metastatic disease in view of the patient's given history. Very small right pleural effusion. 2. Hepatomegaly and splenomegaly. There are multiple various sized hypoattenuated hepatic lesions probably represent metastatic disease. The possibility of splenic lesions not entirely excluded. 3. Large soft tissue mass in the head of the pancreas which extends into the luz hepatis and portacaval regions probably consistent with the patient's known history of pancreatic neoplasm with associated lymphadenopathy. Intrahepatic biliary dilatation is suggested with soft tissue density within the vessels may represent tumor thrombus. 4. Prominent retroperitoneal lymphadenopathy. 5. The patient's hardware obscures detail somewhat in the abdomen and pelvic region. 6. Ill-defined soft tissue mass in the anterior subcutaneous tissues of the lower abdomen. If surgery has been performed, this may be on a postsurgical basis, if no history of surgery, considerations for this finding includes metastatic disease. 7. Additional findings as above. Chest X-Ray 05/12/20 00:00 IMPRESSION: No acute cardiopulmonary process. Assessment & Plan - Diagnosis (1) Dehydration Is this a current diagnosis for this admission?: Yes (2) Hypotension Qualifiers: Hypotension type: unspecified hypotension type Qualified Code(s): I95.9 - Hypotension, unspecified Is this a current diagnosis for this admission?: Yes (3) Pancreatic cancer Qualifiers: Pancreatic malignancy location: body of pancreas Qualified Code(s): C25.1 - Malignant neoplasm of body of pancreas Is this a current diagnosis for this admission?: Yes Plan: Continue to wean dopamine drip and plan to transfer patient home to Hospice once all arrangements have been made. Her was in the room today for entire discussion. I offered to speak with daughter or plan a family meeting, however, patient declined and stated that she could tell the daughter everything I said. I am still concerned that patient does not fully grasp the severity of her disease or goals of Hospice services. I would continue her duragesic patch. I do not believe she needs the plavix anymore, I also believe that the baclofen and neurontin would be better served on a different dosing schedule. However, she does not wish to change these right now. (4) Stomatitis and mucositis Is this a current diagnosis for this admission?: Yes - Time Time Spent with patient: 15-24 minutes
[2020-05-19] MEDS: FLUTICASONE NASAL SPRAY 50 MCG/SPRY 120 SPRAY/16 GM NASL SCH ×2 (10:24→17:20)
[2020-05-19] MEDS: GABAPENTIN 300 MG CAPSULE PO SCH (10:24)
[2020-05-19] MEDS: CLOPIDOGREL BISULFATE 75 MG TABLET PO SCH (10:24)
[2020-05-19] MEDS: NYSTATIN/DEXAMETH/DIPHEN SUSP 120 ML PO SCH ×4 (10:24→22:54)
[2020-05-19] MEDS: BACLOFEN 10 MG TABLET PO SCH (10:24)
[2020-05-19] MEDS: FAMOTIDINE 40 MG/5 ML SUSP 50 ML PO SCH (10:25)
--- NOTE | 2020-05-19 16:05 | PDOC PROGRESS REPORT ---
Subjective Progress Note for:: 05/19/20 Subjective:: Patient states the pain is tolerable today. She did complain of some ear ache in her right side. Denies any shortness of breath or fevers. She did not work with physical therapy yesterday because she was engaged in conversation with somebody else at the time of encounter and she was eating at another time of the encounter. Reason For Visit: YESSENIA,DEHYDRATION Physical Exam Vital Signs: Temp Pulse Resp BP Pulse Ox 97.7 F 72 16 115/57 L 100 05/19/20 07:15 05/19/20 08:00 05/19/20 07:15 05/19/20 08:00 05/19/20 07:15 Intake & Output 05/18/20 05/19/20 05/20/20 06:59 06:59 06:59 Intake Total 3095 3035 8 Output Total 630 730 Balance 2465 2305 8 Weight 96.5 kg 94.7 kg 94.7 kg General appearance: PRESENT: no acute distress, cooperative Ear exam: ABSENT: drainage, normal external ear exam - Has a scab wound Mouth exam: PRESENT: neck supple Neck exam: ABSENT: JVD Respiratory exam: PRESENT: clear to auscultation yadi, stridor, unlabored. ABSENT: symmetrical, tachypnea, wheezes Cardiovascular exam: PRESENT: RRR, +S1, +S2. ABSENT: tachycardia GI/Abdominal exam: PRESENT: soft. ABSENT: rebound, rigid, tenderness Neurological exam: PRESENT: alert, awake, oriented to person, oriented to place, oriented to time, oriented to situation Results Laboratory Results: 05/16/20 07:45 05/16/20 06:13 05/04/20 05/04/20 15:28 15:28 Troponin I < 0.012 NT-Pro-B Natriuret Pep 8850 H Impressions: Abdomen/Pelvis CT 05/04/20 16:25 IMPRESSION: 1. Multiple innumerable pulmonary nodules in the visualized lungs. Considerations for these findings include metastatic disease in view of the patient's given history. Very small right pleural effusion. 2. Hepatomegaly and splenomegaly. There are multiple various sized hypoattenuated hepatic lesions probably represent metastatic disease. The possibility of splenic lesions not entirely excluded. 3. Large soft tissue mass in the head of the pancreas which extends into the luz hepatis and portacaval regions probably consistent with the patient's known history of pancreatic neoplasm with associated lymphadenopathy. Intrahepatic biliary dilatation is suggested with soft tissue density within the vessels may represent tumor thrombus. 4. Prominent retroperitoneal lymphadenopathy. 5. The patient's hardware obscures detail somewhat in the abdomen and pelvic region. 6. Ill-defined soft tissue mass in the anterior subcutaneous tissues of the lower abdomen. If surgery has been performed, this may be on a postsurgical basis, if no history of surgery, considerations for this finding includes metastatic disease. 7. Additional findings as above. Chest X-Ray 05/12/20 00:00 IMPRESSION: No acute cardiopulmonary process. Assessment and Plan - Diagnosis (1) Adenocarcinoma of pancreas, stage 4 Is this a current diagnosis for this admission?: Yes Plan: 05/15/2020 I did talk to the patient's daughter Alice and had a 45 to 50-minute conversation. We touch base on many issues. The one thing I want to make sure is that she was aware of the actual tumor burden for her mother. There are multiple pulmonary nodules that could be metastatic disease. The live r has several areas consistent with tumor. 1 of the larger lesions is 7.4 cm in diameter. There is a large soft tissue mass at the head of the pancreas extending into the luz hepatis and portacaval region. There is some intrahepatic biliary ductal dilatation and the suggestion that the tumor may be extending into the portal veins. There is a heterogeneous appearance to the spleen. There is an extensive soft tissue mass surrounding the inferior vena cava and abdominal aorta with a maximum diameter of approximately 7.3 cm. Right and left renal veins are also involved. There is a spiculated mass in the anterior subcutaneous tissue of the lower abdomen that could be related to a previous surgery. Explained to her that realistically there is nothing of any treatment that reverses this. She did not tolerate chemotherapy and so the likelihood of chemotherapy slowing the progress of the malignancy is negligible. Because of the diffuse area of metastases radiation therapy is not practical. I had a very joyce discussion with the patient's daughter. I told her that my recommendation would be hospice and this is if we can get her off of the dopamine. If we can get her off the dopamine then comfort measures would be reasonable. It really depends on how low the blood pressure goes off of the dopamine. I do know they want to get her home. I told her that we would start to decrease the dopamine drip and accept a lower blood pressure than what we would usually. If the patient is asymptomatic with a blood pressure of 90 that would be acceptable. Unfortunately if the patient moves and becomes very orthostatic we would have to increase the dopamine again. The patient's legs are starting to swell more from the small amount of fluid she is getting. Boluses of fluid would not be practical. I may slow the fluid to ensure patency of her Port-A-Cath. 05/16/2020 I asked the patient if anyone has reviewed the CT results from 05/04/20 with the patient since she let me know that she had a copy of the report. I reviewed the report line by line and the patient clearly did not understand the extent of her disease. She was quite shocked and taken aback. We discussed the realistic options for care. She wants to be with family and so home hospice makes the most sense. She was wondering how long the dopamine taper can take. I don't believe that she really understands her situation. 05/18/2020 Patient's decided yesterday and decision to go home with hospice care. I have confirmed today that this is what she wants. Continue pain medications. I will have physical therapy work with her today to try to optimize her physical functioning as best as we can prior to discharge. 05/19/2020 Patient has been set up with home hospice for tomorrow. PT/OT. She states she was able to ambulate into chair yesterday with help from the nurse. Plan is to remove Orozco catheter today-patient's nurse will discuss with patient to see if patient is agreeable. Preferably would be more ideal to take the Orozco out especially if not needed. However under hospice care it is tolerable. (2) Hypotension Qualifiers: Hypotension type: unspecified hypotension type Qualified Code(s): I95.9 - Hypotension, unspecified Is this a current diagnosis for this admission?: Yes Plan: Continue midodrine 10 mg 3 times a day. Discontinue dopamine drip. (3) YESSENIA (acute kidney injury) Is this a current diagnosis for this admission?: Yes (4) Acute respiratory failure with hypoxia Is this a current diagnosis for this admission?: Yes (5) Dehydration Is this a current diagnosis for this admission?: Yes (6) Diarrhea Qualifiers: Diarrhea type: unspecified type Qualified Code(s): R19.7 - Diarrhea, unspecified Is this a current diagnosis for this admission?: Yes (7) Hyperglycemia due to diabetes mellitus Is this a current diagnosis for this admission?: Yes (8) Stomatitis and mucositis Is this a current diagnosis for this admission?: Yes Plan: still with very dry mouth and dry placques. Continue with Magic mouthwash. He is requesting something for treatment of the plaques and will also try oral fluconazole for 7 days. (9) Thrombocytopenia Is this a current diagnosis for this admission?: Yes - Time Time Spent with patient: 15-24 minutes Anticipated Discharge Disposition: Home with Hospice Anticipated Discharge Timeframe: within 24 hours
[2020-05-19] MEDS ORDERED: FLUCONAZOLE 100 MG TABLET PO ONE (17:00)
[2020-05-19] MEDS: MELATONIN 5 MG TABLET PO SCH (22:07)
[2020-05-20] MEDS: MIDODRINE HCL 5 MG TABLET PO SCH (05:38)
[2020-05-20] MEDS: PANTOPRAZOLE SODIUM 40 MG TABLET.DR PO SCH (05:40)
[2020-05-20] MEDS: LEVOTHYROXINE SODIUM 0.15 MG TABLET PO SCH (05:40)
[2020-05-20] MEDS ORDERED: FLUCONAZOLE 100 MG TABLET PO SCH (10:00)
[2020-05-20 10:07] VITALS: BP 104/95
[2020-05-20] MEDS: SUCRALFATE 1 GM TABLET PO SCH (10:22)
[2020-05-20] MEDS: INSULIN REG, HUMAN 100 UNIT/ML 3 ML VIAL (PYX) SUBCUT SCH (10:22)
[2020-05-20] MEDS: NYSTATIN/DEXAMETH/DIPHEN SUSP 120 ML PO SCH (10:23)
[2020-05-20] MEDS: FLUTICASONE NASAL SPRAY 50 MCG/SPRY 120 SPRAY/16 GM NASL SCH (10:23)
[2020-05-20] MEDS: BACLOFEN 10 MG TABLET PO SCH (10:23)
[2020-05-20] MEDS: CLOPIDOGREL BISULFATE 75 MG TABLET PO SCH (10:24)
[2020-05-20] MEDS: FAMOTIDINE 40 MG/5 ML SUSP 50 ML PO SCH (10:24)
[2020-05-20] MEDS: GABAPENTIN 300 MG CAPSULE PO SCH (10:24)
--- NOTE | 2020-05-20 11:00 | PDOC DISCHARGE SUMMARY ---
Impression - Admit/DC Date/PCP Admission Date/Primary Care Provider: 05/04/20 18:49 RAYMUNDO BOOKER Discharge Date: 05/20/20 - Discharge Diagnosis (1) Adenocarcinoma of pancreas, stage 4 Is this a current diagnosis for this admission?: Yes (2) Hospice care Is this a current diagnosis for this admission?: Yes (3) Hypotension Is this a current diagnosis for this admission?: Yes (4) YESSENIA (acute kidney injury) Is this a current diagnosis for this admission?: Yes (5) Acute respiratory failure with hypoxia Is this a current diagnosis for this admission?: Yes (6) Dehydration Is this a current diagnosis for this admission?: Yes (7) Diarrhea Is this a current diagnosis for this admission?: Yes (8) Hyperglycemia due to diabetes mellitus Is this a current diagnosis for this admission?: Yes (9) Stomatitis and mucositis Is this a current diagnosis for this admission?: Yes (10) Thrombocytopenia Is this a current diagnosis for this admission?: Yes - Additional Information Resuscitation Status: Do Not Resuscitate Discharge Diet: Regular Referrals: VALERI BENSON PA [Primary Care Provider] - Follow up as needed Prescriptions: Sucralfate [Carafate 1 gm Tablet] 1 gm PO TID #90 tablet Fluconazole [Diflucan 100 mg Tablet] 100 mg PO DAILY 6 Days #6 tablet Fentanyl [Duragesic 50 Mcg/Hr Transdermal Patch] 1 each TD Q3DAYS #5 patch.td72 Benzocaine [Hurricaine 20% Aerosol [place]] 1 spray TP PRN PRN #1 can PRN Reason: Midodrine HCl [Proamatine 5 mg Tablet] 10 mg PO TID@0600,1200,1600 #180 tablet Pantoprazole Sodium [Protonix [address] Tablet] 40 mg PO BID@0600,1700 #60 [address] Ondansetron HCl [Zofran 8 mg Tablet] 8 mg PO Q8HP PRN #15 PRN Reason: For Nausea/Vomiting Home Medications: Baclofen [Baclofen 10 mg Tablet] 10 mg PO DAILY 05/04/20 Colchicine [Colcrys 0.6 mg Tablet] 1 tab PO DAILY 05/04/20 Fluticasone Propionate [Flonase Allergy Relief] 1 spray NS BID 05/04/20 Gabapentin [Neurontin 300 mg Capsule] 300 mg PO DAILY 05/04/20 Levothyroxine Sodium [Euthyrox] 150 mcg PO DAILY 05/04/20 Loratadine [Claritin 10 mg Tablet] 10 mg PO DAILY 05/04/20 Melatonin 10 mg PO QHS 05/04/20 Metformin HCl [Metformin HCl ER] 500 mg PO DAILY 05/04/20 Olopatadine HCl [Pazeo] 2.5 ml OP DAILY 05/04/20 Polyethylene Glycol 3350 [Miralax Powder 17 gm/Packet] 1 packet PO BID 05/04/20 Promethazine HCl [Phenergan 25 mg Tablet] 25 mg PO Q6HP PRN 05/04/20 Tizanidine HCl [Zanaflex 4 mg Tablet] 4 mg PO DAILY 05/04/20 Benzocaine [Hurricaine 20% Aerosol [place]] 1 spray TP PRN PRN #1 can 05/20/20 Fentanyl [Duragesic 50 Mcg/Hr Transdermal Patch] 1 each TD Q3DAYS #5 patch.td72 05/20/20 Fluconazole [Diflucan 100 mg Tablet] 100 mg PO DAILY 6 Days #6 tablet 05/20/20 Midodrine HCl [Proamatine 5 mg Tablet] 10 mg PO TID@0600,1200,1600 #180 tablet 05/20/20 Ondansetron HCl [Zofran 8 mg Tablet] 8 mg PO Q8HP PRN #15 05/20/20 Pantoprazole Sodium [Protonix [address] Tablet] 40 mg PO BID@0600,1700 #60 tablet.dr 05/20/20 Sucralfate [Carafate 1 gm Tablet] 1 gm PO TID #90 tablet 05/20/20 History of Present Illiness History of Present Illness: According to admitting provider: NEFTALY ARNDT is a 64 year old male, past medical history of dementia, schizophrenia, who was admitted from the ED due to altered mental status. Most of the history obtained from his healthcare power of real estate attorney Bautista Herndon. According to her patient started to get more confused 1 day prior to admission, said that he would pull try to pull out his catheter or spill his urine all over the floor which is not consistent with his baseline mental status. Home health care nurse noted low-grade fever, and they were told to send the patient to the emergency room. In the emergency room, blood pressure noted to be low at systolic of 84. Orozco catheter draining red red-orange liquid. Patient was given IV bolus, started on ceftriaxone. Urinalysis finding consistent with UTI. Lactate was normal. Was admitted for further antibiotic treatment. Orozco catheter replaced in the ED Of note patient was last admitted at [facility] April 21April 14m for GI bleed, also noted with low sodium levels. During prior admission he was treated for UTI with urinary retention. He was discharged with a Orozco. He was seen at his regular urologist clinic on April 28 when they removed his catheter, however he was unable to void hence it was put back the very next day. Hospital Course Hospital Course: Patient had complicated stay in the hospital. She presented for evaluation of abdominal pain. She was noted to be significantly hypotensive, dehydrated with acute renal failure and elevated transaminases. She has history of stage IV adenocarcinoma of the pancreas which has led to multiple complications. She did not tolerate her first round of chemotherapy which had been given shortly prior to presentation. SHe was evaluated by oncologist while in the hospital. She was also notably hypotensive and required placement on a dopamine drip, IV fluids as well as Midodrine at high doses to keep her blood pressures up. Echocardiogram was done which revealed normal systolic function with mild diastolic dysfunction hyper dynamic LV contractility. An abdominal CAT scan and chest x-rays was done while in the hospital which revealed severe tumor burden with multiple metastatic lesions involving several lesions in her liver largest is 7.4 cm, pulmonary nodules, large soft tissue mass at the head of pancreas extending into the luz hepatis and portocaval region, intrahepatic biliary duct dilation likely from obstruction from the mass, heterogeneity of spleen as well as extensive mass surrounding the inferior vena cava and abdominal aorta and involvement of the right and left renal veins. It is possible that this surrounding mass likely has an effect on patient's venous return to the heart which is contributing to her hypotension and orthostasis. Patient has very poor prognosis. Conversations were had between hospitalist and oncologist with patient and her family and the decision was made to proceed with hospice care. Patient opted for home hospice. Patient was weaned off dopamine over the past few days and has sustained adequate blood pressures off dopamine for the past 24 hours. Prior to that she was only on 2 mcg of dopamine the previous day. She has worked with physical therapy. rag production worker has set up home hospice as well as adaptive devices at home. She will be discharged with high doses of midodrine to help with orthostasis and hypotension. Also treated for stomatitis and possible oral candidiasis. Given prescriptions for fentanyl patch for her neoplasm related pain. Physical Exam Vital Signs: Temp Pulse Resp BP Pulse Ox 98.2 F 90 19 104/95 H 95 05/20/20 10:00 05/20/20 10:00 05/20/20 10:00 05/20/20 10:00 05/20/20 10:00 Intake & Output 05/19/20 05/20/20 05/21/20 06:59 06:59 06:59 Intake Total 3035 548 Output Total 730 450 Balance 2305 98 Weight 94.7 kg 92 kg General appearance: PRESENT: no acute distress, cooperative Neck exam: ABSENT: JVD Respiratory exam: PRESENT: symmetrical, unlabored. ABSENT: accessory muscle use, tachypnea Cardiovascular exam: ABSENT: tachycardia GI/Abdominal exam: PRESENT: soft. ABSENT: rebound, rigid, tenderness Neurological exam: PRESENT: alert, awake Psychiatric exam: ABSENT: agitated, anxious Results Laboratory Results: WBC 15.7 10^3/uL (4.0-10.5) H 05/16/20 07:45 RBC 3.72 10^6/uL (3.72-5.28) 05/16/20 07:45 Hgb 8.7 g/dL (12.0-15.5) L 05/16/20 07:45 Hct 26.3 % (36.0-47.0) L 05/16/20 07:45 MCV 71 fl (80-97) L 05/16/20 07:45 MCH 23.4 pg (27.0-33.4) L 05/16/20 07:45 MCHC 33.0 g/dL (32.0-36.0) 05/16/20 07:45 RDW 19.9 % (11.5-14.0) H 05/16/20 07:45 Plt Count 63 10^3/uL (150-450) L 05/16/20 07:45 Lymph % (Auto) Not Reportable 05/16/20 07:45 Miller % (Auto) Not Reportable 05/16/20 07:45 Eos % (Auto) Not Reportable 05/16/20 07:45 Baso % (Auto) Not Reportable 05/16/20 07:45 Reticulocyte # 0.010 10^6/uL (0.028-0.122) L 05/05/20 08:36 Absolute Neuts (auto) Not Reportable 05/16/20 07:45 Absolute Lymphs (auto) Not Reportable 05/16/20 07:45 Absolute Monos (auto) Not Reportable 05/16/20 07:45 Absolute Eos (auto) Not Reportable 05/16/20 07:45 Absolute Basos (auto) Not Reportable 05/16/20 07:45 Total Counted 100 05/16/20 07:45 Seg Neutrophils % Not Reportable 05/16/20 07:45 Seg Neuts % (Manual) 86 % (42-78) H 05/16/20 07:45 Band Neutrophils % 2 % (3-5) L 05/16/20 07:45 Lymphocytes % (Manual) 9 % (13-45) L 05/16/20 07:45 Atypical Lymphs % Cancelled 05/13/20 06:38 Monocytes % (Manual) 3 % (3-13) 05/16/20 07:45 Eosinophils % (Manual) 0 % (0-6) 05/16/20 07:45 Basophils % (Manual) 0 % (0-2) 05/16/20 07:45 Metamyelocytes % Cancelled 05/13/20 06:38 Myelocytes % Cancelled 05/13/20 06:38 Promyelocytes % Cancelled 05/13/20 06:38 Immature Leukocytes % Cancelled 05/13/20 06:38 Abs Neuts (Manual) 13.8 10^3/uL (1.7-8.2) H 05/16/20 07:45 Abs Lymphs (Manual) 1.4 10^3/uL (0.5-4.7) 05/16/20 07:45 Abs Monocytes (Manual) 0.5 10^3/uL (0.1-1.4) 05/16/20 07:45 Absolute Eos (Manual) 0.0 10^3/uL (0.0-0.6) 05/16/20 07:45 Abs Basophils (Manual) 0.0 10^3/uL (0.0-0.2) 05/16/20 07:45 Reticulocyte # (manual) Cancelled 05/05/20 05:07 Nucleated RBCs Cancelled 05/13/20 06:38 Differential Comment Cancelled 05/13/20 06:38 Hypersegmented Neuts Cancelled 05/13/20 06:38 Smudge Cells Cancelled 05/13/20 06:38 Toxic Granulation 1+ 05/13/20 10:42 Toxic Vacuolation PRESENT 05/13/20 10:42 Dohle Bodies Cancelled 05/13/20 06:38 Tonia Rods Cancelled 05/13/20 06:38 WBC Morphology Comment Cancelled 05/13/20 06:38 Platelet Estimate Cancelled 05/16/20 06:13 Clumped Platelets Cancelled 05/13/20 06:38 Large Platelets Cancelled 05/13/20 06:38 Giant Platelets Cancelled 05/13/20 06:38 Platelet Comment DECREASED 05/16/20 07:45 Polychromasia SLIGHT 05/16/20 07:45 Hypochromasia SLIGHT 05/13/20 10:42 Poikilocytosis 1+ 05/14/20 09:28 Basophilic Stippling Cancelled 05/13/20 06:38 Anisocytosis 2+ 05/16/20 07:45 Microcytosis 1+ 05/14/20 09:28 Macrocytosis Cancelled 05/13/20 06:38 Spherocytes Cancelled 05/13/20 06:38 Pappenheimer Bodies Cancelled 05/13/20 06:38 Sickle Cells Cancelled 05/13/20 06:38 Target Cells Cancelled 05/13/20 06:38 Tear Drop Cells SLIGHT 05/13/20 10:42 Ovalocytes 1+ 05/14/20 09:28 Stomatocytes Cancelled 05/13/20 06:38 Helmet Cells Cancelled 05/13/20 06:38 Kelley-[place]mar Bodies Cancelled 05/13/20 06:38 Kelsey Cells Cancelled 05/13/20 06:38 Acanthocytes (Spur) Cancelled 05/13/20 06:38 Rouleaux Cancelled 05/13/20 06:38 Schistocytes Cancelled 05/13/20 06:38 RBC Morph Comment Cancelled 05/13/20 06:38 Retic Count Cancelled 05/05/20 05:07 Retic Count (manual) Cancelled 05/05/20 05:07 Retic Count (auto) 0.31 % (0.66-2.85) L 05/05/20 08:36 Absolute Retic Cancelled 05/05/20 05:07 PT 22.4 SEC (11.4-15.4) H 05/04/20 15:28 INR 1.96 05/04/20 15:28 Sodium 136.2 mmol/L (137-145) L 05/16/20 06:13 Potassium 4.0 mmol/L (3.6-5.0) 05/16/20 06:13 Chloride 110 mmol/L (98-107) H 05/16/20 06:13 Carbon Dioxide 18 mmol/L (22-30) L 05/16/20 06:13 Anion Gap 8 (5-19) 05/16/20 06:13 BUN 22 mg/dL (7-20) H 05/16/20 06:13 Creatinine 0.82 mg/dL (0.52-1.25) 05/16/20 06:13 Est GFR ( Amer) > 60 (>60) 05/16/20 06:13 Est GFR (MDRD) Non-Af > 60 (>60) 05/16/20 06:13 Glucose 135 mg/dL (75-110) H 05/16/20 06:13 POC Glucose 125 mg/dL (70-110) H 05/20/20 08:30 Lactic Acid 1.3 mmol/L (0.7-2.1) 05/04/20 23:34 Calcium 7.6 mg/dL (8.4-10.2) L 05/16/20 06:13 Phosphorus 5.0 mg/dL (2.5-4.5) H 05/05/20 05:07 Magnesium 1.7 mg/dL (1.6-2.3) 05/16/20 06:13 Iron 17.3 ug/dL (37-170) L 05/05/20 05:07 TIBC 224 ug/dL (250-450) L 05/05/20 05:07 % Saturation 8 % 05/05/20 05:07 Ferritin 913.00 ng/mL (11.1-264.0) H 05/05/20 05:07 Total Bilirubin 1.2 mg/dL (0.2-1.3) 05/16/20 06:13 Direct Bilirubin 0.9 mg/dL (0.0-0.4) H 05/16/20 06:13 Neonat Total Bilirubin Not Reportable 05/16/20 06:13 Neonat Direct Bilirubin Not Reportable 05/16/20 06:13 Neonat Indirect Bili Not Reportable 05/16/20 06:13 AST 97 U/L (14-36) H 05/16/20 06:13 ALT 57 U/L (<35) H 05/16/20 06:13 Alkaline Phosphatase 655 U/L (38-126) H 05/16/20 06:13 Troponin I < 0.012 ng/mL 05/04/20 15:28 NT-Pro-B Natriuret Pep 8850 pg/mL (<125) H 05/04/20 15:28 Total Protein 5.4 g/dL (6.3-8.2) L 05/16/20 06:13 Albumin 2.2 g/dL (3.5-5.0) L 05/16/20 06:13 Lipase 281.2 U/L (23-300) 05/04/20 15:28 Vitamin B12 > 1000.0 pg/mL (239-931) H 05/05/20 05:07 Folate 8.26 ng/mL (>2.76) 05/05/20 05:07 Urine Color YELLOW 05/04/20 18:10 Urine Appearance SLIGHTLY-CLOUDY 05/04/20 18:10 Urine pH 5.0 (5.0-9.0) 05/04/20 18:10 Ur Specific [place] 1.014 05/04/20 18:10 Urine Protein 30 mg/dL (NEGATIVE) H 05/04/20 18:10 Urine Glucose (UA) NEGATIVE mg/dL (NEGATIVE) 05/04/20 18:10 Urine Ketones NEGATIVE mg/dL (NEGATIVE) 05/04/20 18:10 Urine Blood SMALL (NEGATIVE) H 05/04/20 18:10 Urine Nitrite NEGATIVE (NEGATIVE) 05/04/20 18:10 Urine Bilirubin NEGATIVE (NEGATIVE) 05/04/20 18:10 Urine Urobilinogen NEGATIVE mg/dL (<2.0) 05/04/20 18:10 Ur Leukocyte Esterase NEGATIVE (NEGATIVE) 05/04/20 18:10 Urine WBC (Auto) 9 /HPF 05/04/20 18:10 Urine RBC (Auto) 3 /HPF 05/04/20 18:10 U Hyaline Cast (Auto) 12 /LPF 05/04/20 18:10 Urine Bacteria (Auto) TRACE /HPF 05/04/20 18:10 Squamous Epi Cells Auto 1 /HPF 05/04/20 18:10 Urine Mucus (Auto) RARE /LPF 05/04/20 18:10 Urine Ascorbic Acid NEGATIVE (NEGATIVE) 05/04/20 18:10 Stool Occult Blood NEGATIVE (NEGATIVE) 05/05/20 01:11 POC Stool Occult Blood POSITIVE (NEGATIVE) 05/04/20 16:23 Stool for White Cells NO WBCs SEEN 05/05/20 01:11 Stl C. Difficile GDH Ag NEGATIVE (NEGATIVE) 05/07/20 17:50 Stl C.difficile Tox A&B NEGATIVE (NEGATIVE) 05/07/20 17:50 Slides for Path Review Cancelled 05/16/20 06:13 Blood Type A POSITIVE 05/04/20 17:34 Antibody Screen NEGATIVE 05/04/20 17:34 05/04/20 05/04/20 15:28 15:28 Troponin I < 0.012 NT-Pro-B Natriuret Pep 8850 H Impressions: Chest X-Ray 05/04/20 15:25 IMPRESSION: Chronic lung changes. No acute cardiopulmonary findings. Abdomen/Pelvis CT 05/04/20 16:25 IMPRESSION: 1. Multiple innumerable pulmonary nodules in the visualized lungs. Considerations for these findings include metastatic disease in view of the patient's given history. Very small right pleural effusion. 2. Hepatomegaly and splenomegaly. There are multiple various sized hypoattenuated hepatic lesions probably represent metastatic disease. The po ssibility of splenic lesions not entirely excluded. 3. Large soft tissue mass in the head of the pancreas which extends into the luz hepatis and portacaval regions probably consistent with the patient's known history of pancreatic neoplasm with associated lymphadenopathy. Intrahepatic biliary dilatation is suggested with soft tissue density within the vessels may represent tumor thrombus. 4. Prominent retroperitoneal lymphadenopathy. 5. The patient's hardware obscures detail somewhat in the abdomen and pelvic region. 6. Ill-defined soft tissue mass in the anterior subcutaneous tissues of the lower abdomen. If surgery has been performed, this may be on a postsurgical basis, if no history of surgery, considerations for this finding includes metastatic disease. 7. Additional findings as above. Chest X-Ray 05/05/20 00:00 IMPRESSION: No interval change when compared to yesterday. Chest X-Ray 05/12/20 00:00 IMPRESSION: No acute cardiopulmonary process. Plan Time Spent: Greater than 30 Minutes Stroke Is this a Stroke Patient?: No Acute Heart Failure Is this a Heart Failure Patient?: No
== END 2020-05-20 12:45 | disposition hospice, home (50) | DRG 640 ==
LOC: ER 15:06 → EH 18:49 → OBSVTOIN 18:49 → 3S 22:15
PROVIDERS: ADMIT Internal Medicine; ATTEND Internal Medicine
DX: E86.0 Dehydration (principal); J96.01 Acute respiratory failure with hypoxia; N17.9 Acute kidney failure, unspecified; C25.1 Malignant neoplasm of body of pancreas; C78.7 Secondary malignant neoplasm of liver and intrahepatic bile duct; C78.02 Secondary malignant neoplasm of left lung; C78.01 Secondary malignant neoplasm of right lung; C78.89 Secondary malignant neoplasm of other digestive organs; C79.89 Secondary malignant neoplasm of other specified sites; K92.1 Melena; E87.1 Hypo-osmolality and hyponatremia; I95.1 Orthostatic hypotension; K12.30 Oral mucositis (ulcerative), unspecified; K21.9 Gastro-esophageal reflux disease without esophagitis; E03.9 Hypothyroidism, unspecified; I25.10 Atherosclerotic heart disease of native coronary artery without angina pectoris; T45.1X5A Adverse effect of antineoplastic and immunosuppressive drugs, initial encounter; K12.1 Other forms of stomatitis; Y84.2 Radiological procedure and radiotherapy as the cause of abnormal reaction of the patient, or of later complication, without mention of misadventure at the time of the procedure; Z95.5 Presence of coronary angioplasty implant and graft; I10 Essential (primary) hypertension; G89.3 Neoplasm related pain (acute) (chronic); M19.90 Unspecified osteoarthritis, unspecified site; Z90.49 Acquired absence of other specified parts of digestive tract; D50.9 Iron deficiency anemia, unspecified; E78.00 Pure hypercholesterolemia, unspecified; R19.7 Diarrhea, unspecified; Z66 Do not resuscitate; R12 Heartburn; R74.0 Nonspecific elevation of levels of transaminase and lactic acid dehydrogenase [LDH]; D72.829 Elevated white blood cell count, unspecified; E11.65 Type 2 diabetes mellitus with hyperglycemia; Z90.710 Acquired absence of both cervix and uterus; Z79.899 Other long term (current) drug therapy; Z79.84 Long term (current) use of oral hypoglycemic drugs; Z88.8 Allergy status to other drugs, medicaments and biological substances; Z88.1 Allergy status to other antibiotic agents; Z88.6 Allergy status to analgesic agent; Z93.8 Other artificial opening status; D69.59 Other secondary thrombocytopenia
CPT/HCPCS: 36415; 51702; 71045; 74176; 80048; 80053; 81001; 82270; 82272; 82607; 82728; 82746; 82962; 83540; 83550; 83605; 83690; 83735; 83880; 84100; 84484; 85025; 85045; 85610; 86850; 86900; 86901; 87045; 87205; 87324; 87449; 89055; 93005; 93010; 93306; 96361; 96365; 99285; C9113; J1170; J1265; J1642; J1815; J1940; J2354; J3490; J7030; J7120; S0028